=== PATIENT | female | born 1940 | race Caucasian/White ===

== ENCOUNTER 2018-05-03 11:31 | Inpatient (IN) | payer MEDICARE ==
[2018-05-03 14:08] LABS: Absolute Lymphocytes (CBC) 0.6 K/uL (0.7-4.9); Absolute Monocytes 0.6 K/uL (0.1-1.3); Absolute Neutrophil 3.3 K/uL (1.8-8.0); Basophils % 0.8 % (0-1.3); Eosinophils % 1.1 % (0-4.4); Hematocrit 23.6 % (36.0-45.0); Lymphocytes % 13.6 % (15.3-44.8); Monocytes % 13.7 % (3.3-12.3); RBC Red Blood Cell Count 2.94 M/uL (3.86-4.86)
[2018-05-03] MEDS ORDERED: PIPER/TAZO/NS 3.375gm 3.375 GM/100 ML BAG ONE (14:11)
--- NOTE | 2018-05-03 14:16 | ER ---
Nurse's Notes 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 Transition of care: patient was not received from another setting of care. Onset of symptoms was May 03, 2018. Risk Assessment: Do you want to hurt yourself or someone else? Patient reports no desire to harm self or others. Initial Sepsis Screen: Does the patient meet any 2 criteria? No. Patient's initial sepsis screen is negative. Does the patient have a suspected source of infection? No. Patient's initial sepsis screen is negative. Care prior to arrival: None. 11:59 Method Of Arrival: Ambulatory la1 11:59 Acuity: LUCIE 3 la1 Historical: - Allergies: 11:59 No Known Allergies; la1 - PMHx: 11:59 hemachromotosis; Migraines; stroke 2013; Cellulitis; Anemia; la1 - PSHx: 11:59 liver biopsy; la1 - Immunization history:: Adult Immunizations up to date. - Social history:: Smoking status: Patient/guardian denies using tobacco. - Ebola Screening: : No symptoms or risks identified at this time. Screenin:30 Abuse screen: Denies threats or abuse. Nutritional screening: No deficits noted. jl7 Tuberculosis screening: No symptoms or risk factors identified. Fall Risk IV access (20 points). Total Bond Fall Scale indicates No Risk (0-24 pts). Assessment: 12:45 General: Appears in no apparent distress. uncomfortable, Behavior is calm, cooperative, jl7 appropriate for age. Pain: Denies pain. Neuro: Level of Consciousness is awake, alert, obeys commands, Oriented to person, place, time, situation. Cardiovascular: Patient's skin is warm and dry. Respiratory: Airway is patent Respiratory effort is even, unlabored, Respiratory pattern is regular, symmetrical. GI: No signs and/or symptoms were reported involving the gastrointestinal system. : No signs and/or symptoms were reported regarding the genitourinary system. EENT: No signs and/or symptoms were reported regarding the EENT system. Derm: Skin is pink, warm \T\ dry. Decubitus located on sacrum approximately 7.6 cm to 20 cm is stage IV bed has granulation present bed has fibrin present. 13:30 Reassessment: wet to dry dressing to sacral wound. jl7 Vital Signs: 12:02 BP 128 / 77; Pulse 93; Resp 18; Temp 97.1; Pulse Ox 98% on R/A; Weight 49.9 kg; Height la1 5 ft. 4 in. (162.56 cm); 13:59 BP 139 / 71; Pulse 92; Resp 18; Temp 97.9(O); Pulse Ox 94% on R/A; mh5 14:30 BP 135 / 68; Pulse 93; Resp 16 S; Pulse Ox 98% on R/A; jl7 12:02 Body Mass Index 18.88 (49.90 kg, 162.56 cm) la1 ED Course: 11:34 Patient arrived in ED. mr 11:34 Ronnie Lawton DO is Private Physician. mr 11:59 Arm band placed on left wrist. la1 12:01 Triage completed. la1 12:30 Basil Payton MD is Attending Physician. gs 12:36 Rafita Morris RN is Primary Nurse. jl7 13:30 Patient has correct armband on for positive identification. Placed in gown. Bed in low jl7 position. Call light in reach. Side rails up X 1. Pulse ox on. NIBP on. Warm blanket given. 13:30 Initial lab(s) drawn, by ky, sent to lab. Inserted saline lock: 22 gauge in right jl7 forearm, using aseptic technique. Blood collected. 14:09 Tierney Santoro MD is Hospitalizing Provider. gs 14:30 No provider procedures requiring assistance completed. Patient admitted, IV remains in jl7 place. intact, No redness/swelling at site. Administered Medications: 13:40 Drug: Zosyn 3.375 grams Route: IVPB; Infused Over: 60 mins; Site: right forearm; jl7 14:44 Follow up: Response: No adverse reaction; IV Status: Completed infusion jl7 14:21 Not Given (Other Intervention Used): Bacitracin Ointment (500 unit/g) 1 application jl7 Topical once Outcome: 14:15 Decision to Hospitalize by Provider. madhavi 14:30 Admitted to Med/surg accompanied by tech, family with patient, via wheelchair, room jl7 217, with chart, Report called to JUNA JOSÉ Rivero 14:30 Condition: stable 14:30 Discharge instructions given to patient, family, Instructed on the need for admit, Demonstrated understanding of instructions. 14:45 Patient left the ED. jl7 Signatures: Mable Hu Lee, RN RN la1 Tatiana Kendall Jahala, RN RN jl7 Basil Payton MD MD Corrections: (The following items were deleted from the chart) 14:45 14:21 Zosyn 3.375 grams IVPB in right forearm over 60 mins jl7 jl7
--- NOTE | 2018-05-03 14:16 | EDPHYS ---
Physician Documentation [facility] Name: Laila Johnson Age: 77 yrs Sex: Female : 1940 Arrival Date: 05/03/2018 Time: 11:34 Bed 15 Private MD: Ronnie Lawton H ED Physician Basil Payton HPI: 05/03 14:29 This 77 yrs old Female presents to ER via Ambulatory with complaints of gs Abscess. 14:29 This 77 yrs old Female presents to ER via Ambulatory with complaints of Ulcer.gs 14:29 Description: The affected area is moderate sized, draining. Onset: The symptoms/episode gs began/occurred 2 week(s) ago. Associated signs and symptoms: Pertinent negatives: fever. Modifying factors: the symptoms are alleviated by nothing, the symptoms are aggravated by nothing. Severity of symptoms: At their worst the symptoms were severe, in the emergency department the symptoms are unchanged. Historical: - Allergies: 11:59 No Known Allergies; la1 - PMHx: 11:59 hemachromotosis; Migraines; stroke 2014; Cellulitis; Anemia; la1 - PSHx: 11:59 liver biopsy; la1 - Immunization history:: Adult Immunizations up to date. - Social history:: Smoking status: Patient/guardian denies using tobacco. - Ebola Screening: : No symptoms or risks identified at this time. ROS: 14:29 All other systems are negative. gs Exam: 14:29 Head/Face: Normocephalic, atraumatic. Eyes: Pupils equal round and reactive to light, gs extra-ocular motions intact. Lids and lashes normal. Conjunctiva and sclera are non-icteric and not injected. Cornea within normal limits. Periorbital areas with no swelling, redness, or edema. ENT: Nares patent. No nasal discharge, no septal abnormalities noted. Tympanic membranes are normal and external auditory canals are clear. Oropharynx with no redness, swelling, or masses, exudates, or evidence of obstruction, uvula midline. Mucous membranes moist. Neck: Trachea midline, no thyromegaly or masses palpated, and no cervical lymphadenopathy. Supple, full range of motion without nuchal rigidity, or vertebral point tenderness. No Meningismus. Chest/axilla: Normal chest wall appearance and motion. Nontender with no deformity. No lesions are appreciated. Cardiovascular: Regular rate and rhythm with a normal S1 and S2. No gallops, murmurs, or rubs. Normal PMI, no JVD. No pulse deficits. Respiratory: Lungs have equal breath sounds bilaterally, clear to auscultation and percussion. No rales, rhonchi or wheezes noted. No increased work of breathing, no retractions or nasal flaring. Abdomen/GI: Soft, non-tender, with normal bowel sounds. No distension or tympany. No guarding or rebound. No evidence of tenderness throughout. Back: No spinal tenderness. No costovertebral tenderness. Full range of motion. MS/ Extremity: Pulses equal, no cyanosis. Neurovascular intact. Full, normal range of motion. Neuro: Awake and alert, GCS 15, oriented to person, place, time, and situation. Cranial nerves II-XII grossly intact. Motor strength 5/5 in all extremities. Sensory grossly intact. Cerebellar exam normal. Normal gait. 14:29 Constitutional: The patient appears alert, awake. 14:29 Skin: large stage 4 ulcer with fibrinous exudate putrid smell.. Vital Signs: 12:02 BP 128 / 77; Pulse 93; Resp 18; Temp 97.1; Pulse Ox 98% on R/A; Weight 49.9 kg; Height la1 5 ft. 4 in. (162.56 cm); 13:59 BP 139 / 71; Pulse 92; Resp 18; Temp 97.9(O); Pulse Ox 94% on R/A; mh5 14:30 BP 135 / 68; Pulse 93; Resp 16 S; Pulse Ox 98% on R/A; jl7 12:02 Body Mass Index 18.88 (49.90 kg, 162.56 cm) la1 MDM: 12:45 Patient medically screened. gs 14:29 Differential diagnosis: abscess, ulcer gangrene. Data reviewed: vital signs, nurses gs notes, lab test result(s). Counseling: I had a detailed discussion with the patient and/or guardian regarding: the historical points, exam findings, and any diagnostic results supporting the discharge/admit diagnosis, the need for further work-up and treatment in the hospital. Physician consultation: Srinivasa Crow MD and will see patient in inpatient room, would like admission per Dr. Tierney Santoro MD. 05/03 13:03 Order name: CBC with Diff; Complete Time: 14:36 05/03 13:03 Order name: Basic Metabolic Panel; Complete Time: 14:36 05/03 13:03 Order name: Blood Culture* 05/03 14:36 Order name: Type And Screen gs Administered Medications: 13:40 Drug: Zosyn 3.375 grams Route: IVPB; Infused Over: 60 mins; Site: right forearm; jl7 14:44 Follow up: Response: No adverse reaction; IV Status: Completed infusion jl7 14:21 Not Given (Other Intervention Used): Bacitracin Ointment (500 unit/g) 1 application jl7 Topical once Disposition: 05/03/18 14:15 Hospitalization ordered by Tierney Santoro for Inpatient Admission. 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 - Bed requested for Telemetry/MedSurg (Inpatient). - Status is Inpatient Admission. jl7 - Condition is Stable. - Problem is new. - Symptoms are unchanged. UTI on Admission? No Signatures: Dispatcher [employer] EDMS Jase Graf RN RN la1 Rafita Morris RN RN jl7 Basil Payton MD MD Corrections: (The following items were deleted from the chart) 14:20 14:15 Hospitalization Ordered by Tierney Santoro MD for Inpatient Admission. 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 Bed requested for Telemetry/MedSurg (Inpatient). Status is Inpatient Admission. Condition is Stable. Problem is new. Symptoms are unchanged. UTI on Admission? No. gs 14:45 14:20 05/03/2018 14:15 Hospitalization Ordered by Tierney Santoro MD for Inpatient jl7 Admission. 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 Bed requested for Telemetry/MedSurg (Inpatient). Status is Inpatient Admission. Condition is Stable. Problem is new. Symptoms are unchanged. UTI on Admission? No. la1
[2018-05-03 14:26] LABS: Potassium 3.8 mmol/L (3.5-5.1)
[2018-05-03 15:42] VITALS: BMI 18.0
[2018-05-03] MEDS ORDERED: PNEUMOCOCCAL VACCINE 0.5 ML IMVAC ONE (16:00)
[2018-05-03] MEDS ORDERED: INFLUENZA VACCINE (for 3y+) 0.5 ML DOSE IMVAC ONE (16:00)
[2018-05-03] MEDS ORDERED: POTASSIUM CL SA 10 MEQ TAB PO ONE (16:05)
--- NOTE | 2018-05-03 16:44 | P.HP ---
Certification for Inpatient With expected LOS: >2 Midnights Practitioner: I am a practitioner with admitting privileges, knowledge of patient current condition, hospital course, and medical plan of care. Services: Services provided to patient in accordance with Admission requirements found in Title 42 Section 412.3 of the Code of Federal Regulations Patient History Date of Service: 05/03/18 Reason for admission: infected pressure ulcer History of Present Illness: Patient is 77 years old woman with past medical history of hemochromatosis, AFib , stroke, anemia presented to the emergency room with infected pressure ulcer: In the back sacral area, patient denied any fevers at home alone chest pain, palpitation, shortness of breath, change in urinary or bowel habits patient mentioned that she was not feeling well for the last few days and that she had this wound only since last Friday, Friday was consulted in the emergency room and they are aware about the patient. Allergies promethazine HCl [From Phenergan] Adverse Reaction (Severe, Verified 09/28/13 13 :29) confusion Home Medications: ALPRAZolam [Xanax] 1 mg PO DAILY PRN 05/03/18 Metoprolol Succinate [Toprol Xl*] 1 tab PO DAILY PRN 05/03/18 Morphine Sulfate [Morphine Sulfate ER] 30 mg PO Q4H PRN 05/03/18 Promethazine HCl 1 tab PO Q6H PRN 05/03/18 - Past Medical/Surgical History Has patient received pneumonia vaccine in the past: No Diabetic: No -: Stroke(2013) -: Chronic Back Pain -: TMJ(Severe) -: AFIB -: bacterial meningitis(september 2013) -: hemochromotosis -: jamil -: breast sx ( left) cyst removed -: sinus sx -: varicose vein surgery -: tubal ligation Psychosocial/ Personal History: Patient smoked 1/2ppd for 35 years. Quit 20 years ago.She lives with her husbandHas all her primary and secondary ADL'sShe denies any physical or financial abuse - Family History Mother Notes: " from surgery, when they took that thing out, got hole in esophagus " - Social History Smoking Status: Former smoker Alcohol use: No CD- Drugs: No Caffeine use: Yes Place of Residence: Home Domestic Violence: Patient denies Review of Systems 10-point ROS is otherwise unremarkable Physical Examination - Vital Signs Temperature: 97.9 F Blood Pressure: 135/68 Pulse: 93 Respirations: 16 - Physical Exam General: Alert, Oriented x3 HEENT: Atraumatic, Normocephalic, PERRLA Neck: Supple, JVD not distended Respiratory: Clear to auscultation bilaterally, Normal air movement Cardiovascular: No edema, Normal pulses, Regular rate/rhythm, Normal S1 S2 Gastrointestinal: Normal bowel sounds, Soft and benign, Non-distended Musculoskeletal: No erythema, No tenderness Integumentary: Skin breakdown (Patient has skin breakdown in the sacral area associated with redness and draining pus ) Neurological: Normal speech, Normal strength at 5/5 x4 extr - Studies Laboratory Data (last 24 hrs) 05/03/18 13:15: Sodium 131 L, Potassium 3.8, BUN 11, Creatinine 0.82, Glucose 119 H 05/03/18 13:15: WBC 4.7, Hgb 7.7 L*, Hct 23.6 L, Plt Count 283 Assessment and Plan - Plan Assessment and plan Infected pressure ulcer IV antibiotics vancomycin and Zosyn Surgery consult for debridment f/up wound cx f/up Bcx MRI tomorrow to r/o OM hyponatremia monitor CMP IVF hydration with NS anemia chronic f/up iron profile - Advance Directives Does patient have a Living Will: Yes Does patient have a Durable POA for Healthcare: No
[2018-05-03] MEDS: ENOXAPARIN 40 MG/0.4 ML SQ SCH (16:49)
[2018-05-03] MEDS: VANCOMYCIN 1 GM in NA CHLORIDE 0.9% 250 ML IVPB SCH (16:51)
[2018-05-03] MEDS: NA CHLORIDE 0.9% 1,000 ML IV SCH (18:46)
[2018-05-03] MEDS: PIPER/TAZO/NS 3.375gm 3.375 GM/100 ML BAG IVPB SCH (20:46)
[2018-05-03] MEDS: HYDROCODONE/APAP 10/325 TAB PO PRN (21:41)
[2018-05-04] MEDS: PIPER/TAZO/NS 3.375gm 3.375 GM/100 ML BAG IVPB SCH (03:25)
[2018-05-04 03:29] LABS: Urine Appearance CLEAR; Urine Bilirubin NEGATIVE (NEG); Urine Blood NEGATIVE (NEG); Urine Color YELLOW; Urine Glucose NEGATIVE (NEG); Urine Protein NEGATIVE (NEG); Urine Specific Gravity <=1.005 (1.005-1.030); Urine pH 6.5 (5.0-7.0)
[2018-05-04 03:30] LABS: Urine Microscopic Reflex ORDER UMIC
[2018-05-04 05:16] LABS: Urine Bacteria <20 /HPF (<20); Urine Culture Reflex Order REFLEXED; Urine RBC NONE SEEN /HPF (NONE SEEN)
[2018-05-04 06:18] LABS: Absolute Lymphocytes (CBC) 0.4 K/uL (0.7-4.9); Absolute Monocytes 0.5 K/uL (0.1-1.3); Absolute Neutrophil 3.9 K/uL (1.8-8.0); Basophils % 0.9 % (0-1.3); Eosinophils % 1.6 % (0-4.4); Hematocrit 28.5 % (36.0-45.0); Lymphocytes % 8.6 % (15.3-44.8); MPV 8.1 fL (7.6-11.3); Monocytes % 9.6 % (3.3-12.3); RBC Red Blood Cell Count 3.45 M/uL (3.86-4.86)
[2018-05-04 06:34] LABS: Albumin 2.7 g/dL (3.4-5.0); Bilirubin Total 0.7 mg/dL (0.2-1.0); Potassium 3.8 mmol/L (3.5-5.1); Protein, Total 6.4 g/dL (6.4-8.2)
[2018-05-04 08:52] LABS: Ferritin 31.1 ng/mL (8-388)
[2018-05-04 08:54] LABS: Thyroid Stimulating Hormone 6.27 uIU/mL (0.360-3.740)
--- NOTE | 2018-05-04 10:17 | RAD REPORT ---
EXAM DESCRIPTION: MRI - Foot Left Wo Cont - 05/04/2018 9:51 am CLINICAL HISTORY: evaluate for osteomyelitis Redness and swelling about the heel. COMPARISON: No comparisons FINDINGS: The Achilles tendon and plantar fascia appear normal in size and thickness. Heel soft tiss ues are thickened and edematous with trace fluid noted. There is no marrow replacement or abnormal T2 /IR signal seen in the calcaneus or elsewhere to indicate presence of osteomyelitis. The flexor and extensor tendons of the ankle appear intact. The medial and lateral ligament complexes of the ankle are preserved. A small ankle joint effusion is seen. No soft tissue mass or hematoma. IMPRESSION: No finding to indicate osteomyelitis.
--- NOTE | 2018-05-04 10:30 | RAD REPORT ---
EXAM DESCRIPTION: US - Lower Extremity Arterial Bilat - 05/04/2018 10:20 am CLINICAL HISTORY: evaluate for PVD Leg pain, claudication COMPARISON: Lower Extremity Arterial Bilat dated 10/22/2016 TECHNIQUE: Bilateral lower extremity arterial Doppler examination was performed with waveform tracin g and ankle brachial pressure measurements. FINDINGS: Symmetric brachial pressure measurements are noted. Triphasic waveforms are seen throughout both lower extremity arterial systems to the level of the sarah salis pedis arteries. Right ankle brachial index measures 1.3, normal. Left ankle brachial index measures 1.3, normal. IMPRESSION: No evidence of significant peripheral vascular disease.
[2018-05-04] MEDS: HYDROCODONE/APAP 10/325 TAB PO PRN ×2 (11:09→21:16)
[2018-05-04] MEDS ORDERED: METOPROLOL XL 25 MG TAB PO PRN (14:37)
--- NOTE | 2018-05-04 14:38 | P.PN ---
Subjective Date of Service: 05/04/18 Primary Care Provider: Dr. Lawton Chief Complaint: infected pressure ulcer Subjective: Improving (No significant erythema noted to the left heel. Ulcer noted.) Physical Examination - Vital Signs Temperature: 98.8 F Blood Pressure: 146/78 Pulse: 104 Respirations: 20 Pulse Ox (%): 94 - Physical Exam General: Alert, In no apparent distress, Oriented x3, Cooperative HEENT: Atraumatic Neck: Supple Respiratory: Clear to auscultation bilaterally, Normal air movement Cardiovascular: Normal pulses, Regular rate/rhythm Gastrointestinal: Normal bowel sounds, Soft and benign, Non-distended, No ascites, No tenderness, No masses, No rebound, No guarding Integumentary: Other (Pressure ulcer to the left heel, Stage 1) Neurological: Normal speech, Normal strength at 5/5 x4 extr, Normal tone, Normal affect - Studies Medications List Reviewed: Yes Assessment & Plan Discharge Plan: Home Plan to discharge in: 48 Hours Physician Review Additional Text: Impression: Stage I ulcer to the left heel with cellulitis History of hemochromatosis Anemia, iron deficiency Hypertension Anxiety Plan: Stage I ulcer to the left heel with cellulitis: Continue with antibiotic therapy. MRI shows no osteomyelitis. Cabrera Doppler negative for peripheral vascular disease. Await further recommendations from surgery to evaluate wound. Continue antibiotic therapy. Antibiotic therapy adjusted. Will provide medication for pain. Anticipate discharge in the next 24-48 hr is significant improvement. Ambulate with physical therapy. Patient may require home health and physical therapy discharge. History of hemochromatosis: Will need to obtain more information from history. Patient may need to see Hematology as an outpatient. Anemia, iron deficiency: Will monitor closely. Hypertension: Continue with home medication. Anxiety: Will provide medication as needed. Time Spent Managing Pts Care (In Minutes): 55
[2018-05-04] MEDS ORDERED: MORPHINE 2 MG/ML SYR IV ONE (17:00)
[2018-05-04] MEDS: VANCOMYCIN 1 GM in NA CHLORIDE 0.9% 250 ML IVPB SCH (17:25)
[2018-05-04] MEDS: ENOXAPARIN 40 MG/0.4 ML SQ SCH (17:27)
[2018-05-04] MEDS: NA CHLORIDE 0.9% 1,000 ML IV SCH ×2 (17:38→21:17)
[2018-05-04] MEDS ORDERED: POTASSIUM CL SA 10 MEQ TAB PO ONE (21:00)
[2018-05-04] MEDS: CEFEPIME/SWI 2gm 2 GM/20 ML SYR IV SCH (21:03)
[2018-05-04] MEDS: ENSURE ENLIVE 237 ML CAN PO SCH (21:08)
[2018-05-04] MEDS: JUVEN PACKET PO SCH (21:09)
[2018-05-04] MEDS: ALPRAZOLAM 0.25 MG TABLET PO PRN (23:28)
[2018-05-05] MEDS: HYDROCODONE/APAP 10/325 TAB PO PRN ×3 (04:00→17:17)
[2018-05-05 06:14] LABS: Absolute Lymphocytes (CBC) 0.5 K/uL (0.7-4.9); Absolute Monocytes 0.5 K/uL (0.1-1.3); Absolute Neutrophil 2.4 K/uL (1.8-8.0); Basophils % 1.1 % (0-1.3); Eosinophils % 3.4 % (0-4.4); Hematocrit 26.1 % (36.0-45.0); Lymphocytes % 14.7 % (15.3-44.8); MPV 8.5 fL (7.6-11.3); Monocytes % 14.9 % (3.3-12.3); RBC Red Blood Cell Count 3.18 M/uL (3.86-4.86)
[2018-05-05 06:24] LABS: Magnesium 1.8 mg/dL (1.8-2.4); Potassium 4.4 mmol/L (3.5-5.1)
[2018-05-05] MEDS ORDERED: MAGNESIUM SULFATE 1 gm IVPB 1 GM/100 ML BAG IV ONE (06:42)
[2018-05-05] MEDS ORDERED: IPRATROPIUM BROM 0.5MG/2.5ML NEB PRN (08:12)
[2018-05-05] MEDS ORDERED: ALBUTEROL 2.5 MG/3 ML NEB SOL NEB PRN (08:12)
--- NOTE | 2018-05-05 09:19 | RAD REPORT ---
EXAM DESCRIPTION: RAD - Chest Pa And Lat (2 Views) - 05/05/2018 9:07 am CLINICAL HISTORY: SOB with exertion Chest pain. COMPARISON: Chest Single View dated 10/21/2016; Chest Single View dated 09/13/2015; CHEST SINGLE VIEW d ated 12/23/2013; CHEST SINGLE VIEW dated 12/22/2013 FINDINGS: The lungs are mildly emphysematous with small bilateral pleural effusions noted. Linear an d nodular opacities are present in the left lung base which raise suspicion for superimposed pneumoni a or aspiration. The heart is mildly enlarged in size. IMPRESSION: Small bilateral pleural effusions are noted with ill-defined linear and nodular opacitie s in the left lung base which could indicate pneumonia or aspiration.
[2018-05-05] MEDS: COLLAGENASE 30 GM OINTMENT TOP SCH (09:59)
[2018-05-05] MEDS: JUVEN PACKET PO SCH ×2 (09:59→21:53)
[2018-05-05] MEDS: ENSURE ENLIVE 237 ML CAN PO SCH ×2 (09:59→21:53)
[2018-05-05] MEDS ORDERED: FUROSEMIDE 20 MG/ 2ML VIAL IV ONE (11:10)
--- NOTE | 2018-05-05 11:57 | P.PN ---
Subjective Date of Service: 05/05/18 Primary Care Provider: Dr. Lawton Chief Complaint: infected pressure ulcer Subjective: Improving (Patient reports improvement. Still some mild shortness of breath noted. Oxygen saturations within normal range. Shortness of breath mainly with exertion.) Physical Examination - Vital Signs Temperature: 97.7 F Blood Pressure: 146/77 Pulse: 97 Respirations: 16 Pulse Ox (%): 88 - Physical Exam General: Alert, In no apparent distress, Oriented x3, Cooperative HEENT: Atraumatic Neck: Supple Respiratory: Crackles/rales (To the bases), Expiratory wheezes, Inspiratory wheezes Cardiovascular: Normal pulses, Regular rate/rhythm Gastrointestinal: Normal bowel sounds, Soft and benign, Non-distended, No tenderness, No masses, No rebound, No guarding Musculoskeletal: No erythema, No tenderness, No warmth Integumentary: No erythema, No warmth, No cyanosis, Other (Ulcer to the left heel stable. No significant erythema noted. Nurses report sacral decubitus ulcer as well.) Neurological: Normal speech, Normal strength at 5/5 x4 extr, Normal tone, Normal affect - Studies Medications List Reviewed: Yes Assessment & Plan Discharge Plan: Home Plan to discharge in: 24 Hours Physician Review Additional Text: Impression: Stage I ulcer to the left heel with cellulitis along with sacral decubitus ulcer Shortness of breath likely underlying COPD versus CHF History of hemochromatosis Anemia, iron deficiency Hypertension Anxiety Plan: Stage I ulcer to the left heel with cellulitis along with sacral decubitus ulcer : MRI shows no osteomyelitis. Venous Doppler shows no peripheral vascular disease. This has improved. Await wound care evaluation with recommendations. Will transition to oral Augmentin. Continue with physical therapy. Will discuss with surgery who evaluated patient yesterday. Shortness of breath likely underlying COPD versus CHF: X-ray shows pleural effusions. Room-air saturations within normal range. Patient still short of breath with exertion. Will monitor this closely. Will provide Lasix IV x1. Will obtain echocardiogram to further evaluate for possible underlying CHF. Will also order CT scan PE protocol to further evaluate her condition. Patient on DVT prophylaxis. Will maintain sats above 90%. Will continue to reassess. History of hemochromatosis: Will need to obtain more information from history. Patient may need to see Hematology as an outpatient. Anemia, iron deficiency: Will monitor closely. Hypertension: Continue with home medication. Anxiety: Will provide medication as needed. Time Spent Managing Pts Care (In Minutes): 55
[2018-05-05] MEDS: TRAMADOL HCL 50 MG TAB PO PRN ×2 (12:28→23:13)
--- NOTE | 2018-05-05 14:23 | P.CNS ---
Date of Consult: 05/05/18 PC: I had been asked to see this 77-year-old female in regards to a wound on her sacrum. HPC: Patient is been home, has not been feeling well. Had more less been in bed for the full week. Noticed she had a sore on the sacral area that measures about 2.5 cm. She states that the skin broke down and opened and drained prior to coming to the hospital. PMH: COPD, previous stroke, hypertension PSHx: Previous cholecystectomy, breast surgery, varicose vein surgery SOC: No known allergy SYS REVIEW: States she has otherwise been in good health, how every once in a while her lungs give out on her. O/E awake alert vital signs are stable HEENT: Within normal and Chest: Equal bilaterally ABD: Soft LOCO: Has an area on her coccyx just at the top of the cleft that measures about 2.5 cm. It is opening with some necrotic material. IMPRESSION: Sacral decubitus PLAN: This wound to be treated as an outpatient. We recommend some santal for now for collagenase, and she may be [facility]. Thank you a console.
--- NOTE | 2018-05-05 15:17 | RAD REPORT ---
EXAM DESCRIPTION: CT - Chest For Pe Angio - 05/05/2018 1:07 pm CLINICAL HISTORY: sob COMPARISON: May 05, 2018 TECHNIQUE: Dynamically enhanced axial 3 mm thick images of the chest were obtained during administra tion of <100> mL Isovue 370 IV contrast. Coronal and oblique reconstruction images were generated and reviewed. Exam utilizes a protocol for optimal evaluation of pulmonary arterial tree. Maximum intensity projections 3D imaging was utilized All CT scans are performed using dose optimization technique as appropriate and may include automated exposure control or mA/KV adjustment according to patient size. FINDINGS: A pulmonary embolus is not seen. A thoracic aortic aneurysm is not noted. Small bilateral pleural effusions. . A pericardial effusion is not seen. Mild bibasilar atelectasis IMPRESSION: Negative for a pulmonary embolism. Small bilateral pleural effusions with bibasilar atelectasis
[2018-05-05] MEDS: ENOXAPARIN 40 MG/0.4 ML SQ SCH (16:25)
[2018-05-05] MEDS: VANCOMYCIN 1 GM in NA CHLORIDE 0.9% 250 ML IVPB SCH (16:30)
[2018-05-05] MEDS: ARFORMOTEROL TARTRATE 15 MCG/2 ML VIAL.NEB NEB SCH (20:00)
[2018-05-05] MEDS: CEFEPIME/SWI 2gm 2 GM/20 ML SYR IV SCH (21:53)
[2018-05-05] MEDS: ALPRAZOLAM 0.25 MG TABLET PO PRN (23:13)
[2018-05-06] MEDS: HYDROCODONE/APAP 10/325 TAB PO PRN (04:44)
[2018-05-06 06:06] LABS: Absolute Lymphocytes (CBC) 0.8 K/uL (0.7-4.9); Absolute Monocytes 0.6 K/uL (0.1-1.3); Absolute Neutrophil 3.1 K/uL (1.8-8.0); Basophils % 0.6 % (0-1.3); Eosinophils % 2.5 % (0-4.4); Hematocrit 25.4 % (36.0-45.0); Lymphocytes % 16.9 % (15.3-44.8); MPV 8.6 fL (7.6-11.3); Monocytes % 12.8 % (3.3-12.3); RBC Red Blood Cell Count 3.16 M/uL (3.86-4.86)
[2018-05-06 06:16] LABS: Phosphorus 1.9 mg/dL (2.5-4.9); Potassium 4.5 mmol/L (3.5-5.1)
[2018-05-06] MEDS ORDERED: POTASS/SODIUM PHOSPHATE 1 PKT POWD.PACK PO SCH ×2 (07:00→12:00)
[2018-05-06] MEDS: POTASS/SODIUM PHOSPHATE 1 PKT POWD.PACK PO SCH ×4 (07:24→12:25)
--- NOTE | 2018-05-06 08:06 | ECHO ---
HEIGHT: 5 ft 4 in WEIGHT: 105 lb 3.2 oz DATE OF STUDY: 05/05/[address]: Brijesh Garland DO 2-DIMENSIONAL: YES M.MODE: YES DOPPLER: YES COLOR FLOW: YES TDS: NO PORTABLE: NO DEFINITY: NO BUBBLE STUDY: NO DIAGNOSIS: EVALUATE FOR CONGESTIVE HEART FAILURE CARDIAC HISTORY: CATHERIZATION: NO SURGERY: NO PROSTHETIC VALVE: NO PACEMAKER: NO MEASUREMENTS (cm) DIASTOLIC (NORMALS) SYSTOLIC (NORMALS) IVSd 0.8 (0.6-1.2) LA Diam 3.8 (1.9-4.0) LVEF 64% LVIDd 3.7 (3.5-5.7) LVIDs 2.4 (2.0-3.5) %FS 34% LVPWd 0.9 (0.6-1.2) Ao Diam 2.7 (2.0-3.7) 2 DIMENSIONAL ASSESSMENT: RIGHT ATRIUM: NORMAL LEFT ATRIUM: NORMAL RIGHT VENTRICLE: NORMAL LEFT VENTRICLE: NORMAL TRICUSPID VALVE: NORMAL MITRAL VALVE: NORMAL PULMONIC VALVE: NORMAL AORTIC VALVE: NORMAL PERICARDIAL EFFUSION: NONE AORTIC ROOT: NORMAL LEFT VENTRICULAR WALL MOTION: DECREASED LEFT VENTRICULAR COMPLIANCE. DOPPLER/COLOR FLOW: MILD MITRAL AND TRICUPSID REGURGITATION. NORMAL RIGHT VENTRICULAR SYSTOLIC PRESSURE. COMMENTS: MILD MITRAL AND TRICUPSID REGURGITATION. NORMAL RIGHT VENTRICULAR SYSTOLIC PRESSURE. NORMAL LEFT VENTRICULAR SIZE AND FUNCTION. DECREASED LEFT VENTRICULAR COMPLIANCE. TECHNOLOGIST: Corbin AGUIRRE
[2018-05-06] MEDS: JUVEN PACKET PO SCH ×2 (08:58→20:51)
[2018-05-06] MEDS: COLLAGENASE 30 GM OINTMENT TOP SCH (08:59)
[2018-05-06] MEDS: ENSURE ENLIVE 237 ML CAN PO SCH ×2 (08:59→20:51)
[2018-05-06] MEDS: ALPRAZOLAM 0.25 MG TABLET PO PRN (09:04)
[2018-05-06] MEDS ORDERED: ALPRAZOLAM 0.25 MG TABLET PO ONE (09:35)
[2018-05-06] MEDS: ARFORMOTEROL TARTRATE 15 MCG/2 ML VIAL.NEB NEB SCH ×2 (10:00→20:02)
--- NOTE | 2018-05-06 10:23 | RAD REPORT ---
EXAM DESCRIPTION: MRI - Sacrum/Coccyx Wo Cont - 05/06/2018 9:52 am CLINICAL HISTORY: evaluate for osteomyelitis Infection, decubitus ulcer COMPARISON: No comparisons FINDINGS: Ill-defined soft tissue ulceration is seen along the posterior aspect of the coccyx and in ferior sacrum. No drainable fluid collection is seen. Abnormal diminished T1 and elevated T2/IR signal is seen in the first and second coccygeal segments c ompatible with moderate osteomyelitis No additional areas of abnormal marrow pattern observed. Presacral space shows no abnormal collection s. IMPRESSION: [id number] coccygeal osteomyelitis. No abscess is seen.
--- NOTE | 2018-05-06 10:39 | RAD REPORT ---
EXAM DESCRIPTION: RAD - Chest Pa And Lat (2 Views) - 05/06/2018 10:33 am CLINICAL HISTORY: Follow up COPD/CHF Chest pain. COMPARISON: Chest Pa And Lat (2 Views) dated 05/05/2018; Chest Single View dated 10/21/2016; Chest Sing le View dated 09/13/2015; CHEST SINGLE VIEW dated 12/23/2013 FINDINGS: Small bilateral pleural effusions are noted. The lungs are diffusely emphysematous. Poorly defined nodularity in both lower lung carrasco may represent nipple shadows. The heart is moderately e nlarged in size. No displaced fractures. IMPRESSION: COPD with small pleural effusions bilaterally, unchanged.
[2018-05-06] MEDS: TRAMADOL HCL 50 MG TAB PO PRN ×2 (11:44→22:18)
--- NOTE | 2018-05-06 13:06 | P.PN ---
Subjective Date of Service: 05/06/18 Primary Care Provider: Dr. Lawton Chief Complaint: infected pressure ulcer Subjective: Other (Pain stable.) Physical Examination - Vital Signs Temperature: 97.7 F Blood Pressure: 114/64 Pulse: 114 Respirations: 20 Pulse Ox (%): 100 - Physical Exam General: Alert, In no apparent distress, Cooperative HEENT: Atraumatic Neck: Supple Respiratory: Expiratory wheezes (Bilateral) Cardiovascular: Irregular heart rate/rhythm (AFib, rate controlled) Gastrointestinal: Normal bowel sounds, Soft and benign, Non-distended, No masses , No rebound, No guarding Musculoskeletal: No warmth Integumentary: Other (Case discussed with wound care yesterday concerning unstageable coccyx ulcer) Neurological: Normal speech, Normal strength at 5/5 x4 extr, Normal tone, Normal affect - Studies Medications List Reviewed: Yes Assessment & Plan Discharge Plan: LTAC Plan to discharge in: 24 Hours Physician Review Additional Text: Impression: Unstageable coccyx ulcer with osteomyelitis Shortness of breath secondary to COPD with bilateral pleural effusions complicated with new diagnosis of atrial fibrillation History of hemochromatosis Anemia, iron deficiency Hypertension Anxiety Plan: Unstageable coccyx ulcer with osteomyelitis : MRI shows osteomyelitis of the coccyx. Continue IV antibiotic therapy. Case discussed with infectious disease. Will pursue long-term acute care facility placement for continued IV antibiotic therapy and wound care. Patient currently on vancomycin and cefepime. PICC line ordered for long-term IV antibiotic therapy Shortness of breath secondary to COPD with bilateral pleural effusions complicated with new diagnosis of atrial fibrillation: CT scan shows no pulmonary embolism. X-ray still shows COPD and pleural effusion. Will continue with COPD medication. Will maintain sats above 90%. Telemetry shows atrial fibrillation. Will adjust anti coagulation therapy to Lovenox at 1 milligram/kilogram subcu twice daily. Will make sure patient continues with Toprol XL daily. Will consult cardiology for further recommendation. Patient may require long-term anti coagulation therapy but with her anemia this will need to be monitored closely. History of hemochromatosis: Will need to obtain more information from history. Patient may need to see Hematology as an outpatient. Anemia, iron deficiency: Will monitor closely. Hypertension: Need to make sure patient is getting her Toprol daily. Anxiety: Will provide medication as needed. Time Spent Managing Pts Care (In Minutes): 55
--- NOTE | 2018-05-06 13:24 | EKG ---
Test Date: 2018-05-06 Test Time: 13:11:33 Trust Clerk: KRISTIE MEASUREMENT RESULTS: Intervals: Rate: 78 GA: QRSD: 122 QT: 448 QTc: 510 [place]: P: GA: QRS: 93 T: 71 INTERPRETIVE STATEMENTS: Atrial fibrillation Right bundle branch block Abnormal ECG Compared to ECG 10/21/2016 14:04:31 Right bundle-branch block now present Ventricular premature complex(es) no longer present ST (T wave) deviation no longer present Electronically Signed On 05-06-18 13:23:35 MELTER CASTER by Shaun Gallagher
--- NOTE | 2018-05-06 15:26 | CON ---
History Of Present Illness: This is a 77-year-old female, I was consulted for sacral and coccyx stag e 4 infected wound with possible osteomyelitis. MRI is pending. The patient also has bilateral stag e 3 wounds. Denies any headache, nausea, vomiting, chest pain, abdominal pain, constipation, or diar kehinde. Past Medical History: Includes stroke, atrial fibrillation, chronic back pain. The patient sits or lays down most of the time. Bacterial meningitis, hemochromatosis, hypercholesterolemia, breast surg zuhair with cyst removal, sinus surgery, varicose vein surgery. Social History: Tobacco positive. Alcohol negative. Family History: Noncontributory. Medication: The patient is currently on cefepime and vancomycin. See MARs for other medication. Allergies: NO KNOWN DRUG ALLERGIES. Review of Systems: A 10-point review was performed. Physical Examination: General: This is a 77-year-old female, lying in bed, not in any acute cardiopulmonary distress. Vital Signs: Temperature 97.7, pulse 114, respirations 18, blood pressure 114/64. HEENT: Unremarkable. Neck: Supple. Lungs: Basal crackles. Heart: S1, S2. Regular. Abdomen: Soft, nontender. Bowel sounds present. Extremity: No edema or muscle wasting noted. Laboratory Data: Shows WBC 4.7, hemoglobin 8.2, platelets 264. Chemistry shows sodium 131, potassiu m 4.5, chloride 97, bicarb 27, BUN 22, creatinine 0.8, glucose is 100. Microdata, blood cultures are negative for 24 hours. The wound cultures are pending. MRI of sacrococcyx region shows mild-to-mod erate coccygeal osteomyelitis. No abscess noted. Assessment And Plan: Coccyx stage 4 wound with osteomyelitis, size 3 x 4 x 1.5 with undermining at 1 2 o'clock of about 6 cm. Right heel stage 3 wound, 2.5 x 0.7. Left heel stage 3 wound, 6 x 3. Prot ein calorie malnourishment. We will recommend long-term acute care with IV antibiotic and aggressive wound care at this time on this patient for total of 6 weeks. Recommend to change cefepime to Zosyn . We will follow the patient as needed. NF/MODL Voice ID: [id number] Report ID: [id number]
--- NOTE | 2018-05-06 15:26 | CON ---
History Of Present Illness: Ms. Johnson has been in atrial fibrillation for several years. She was pl aced in the hospital because of a decubitus ulcer. It is infected and some of our studies indicate t hat there is osteomyelitis of the bones there. It is a sacral decubitus. She is being considered fo r transfer to long-term acute care. Her EKGs dating back more than 4 or 5 years all indicate atrial fib. The patient is aware she has been in AFib all the time. She did not have an EKG on admission. She had one today and I was consulted because it showed AFib. She is not on chronic anticoagulation because she has a history of GI bleeding. She has had multiple blood transfusions. She is bed-boun d, very much at risk for falls during transfers. She does not support her weight and for that reason , she is not anticoagulated. She does have a history of stroke in the remote past. Physical Examination: Vital Signs: She is 5 feet 4 inches tall, 105 pounds. Heart rate is 114, temperature 97.7, blood pr essure 114/64, and O2 saturation 100% on room air. General: She is alert. She is pleasant, cooperative. She is not in distress. Lungs: Clear. Heart: Irregularly irregular. Diagnostic Data: The EKG shows atrial fib, rapid ventricular response. Medications: The patient's outpatient medications had included beta-blockers, but they were inadvert ently withheld. I think we just need to restart the beta-amilcar and she will be fine. RAYMON/SUSAN Voice ID: [id number] Report ID: [id number]
[2018-05-06] MEDS: VANCOMYCIN 1 GM in NA CHLORIDE 0.9% 250 ML IVPB SCH ×2 (16:00→16:23)
[2018-05-06] MEDS: CEFEPIME/SWI 2gm 2 GM/20 ML SYR IV SCH (20:50)
[2018-05-06] MEDS: ENOXAPARIN 60 MG/0.6 ML SQ SCH (20:50)
[2018-05-07] MEDS: HYDROCODONE/APAP 10/325 TAB PO PRN ×4 (04:08→23:41)
[2018-05-07 06:15] LABS: Magnesium 2.1 mg/dL (1.8-2.4); Phosphorus 2.1 mg/dL (2.5-4.9); Potassium 4.7 mmol/L (3.5-5.1)
[2018-05-07 06:28] LABS: Absolute Monocytes 0.6 K/uL (0.1-1.3); Absolute Neutrophil 3.3 K/uL (1.8-8.0); Basophils % 0.9 % (0-1.3); Eosinophils % 2.7 % (0-4.4); Hematocrit 25.9 % (36.0-45.0); Lymphocytes % 20.5 % (15.3-44.8); MPV 8.7 fL (7.6-11.3); Monocytes % 11.7 % (3.3-12.3); RBC Red Blood Cell Count 3.23 M/uL (3.86-4.86)
[2018-05-07] MEDS: POTASS/SODIUM PHOSPHATE 1 PKT POWD.PACK PO SCH ×3 (06:49→15:31)
[2018-05-07] MEDS: ARFORMOTEROL TARTRATE 15 MCG/2 ML VIAL.NEB NEB SCH ×2 (08:54→20:00)
[2018-05-07] MEDS: COLLAGENASE 30 GM OINTMENT TOP SCH (09:00)
[2018-05-07] MEDS: JUVEN PACKET PO SCH ×2 (09:00→20:27)
[2018-05-07] MEDS: ENSURE ENLIVE 237 ML CAN PO SCH ×2 (09:00→20:27)
[2018-05-07] MEDS: ENOXAPARIN 60 MG/0.6 ML SQ SCH ×2 (10:03→20:27)
[2018-05-07] MEDS: METOPROLOL XL 25 MG TAB PO SCH (10:03)
--- NOTE | 2018-05-07 12:38 | P.PN ---
Subjective Date of Service: 05/07/18 Primary Care Provider: Dr. Lawton Chief Complaint: infected pressure ulcer Subjective: Improving Physical Examination - Vital Signs Temperature: 98.0 F Blood Pressure: 134/62 Pulse: 73 Respirations: 16 Pulse Ox (%): 95 - Physical Exam General: Alert, In no apparent distress, Oriented x3, Cooperative HEENT: Atraumatic Neck: Supple Respiratory: Clear to auscultation bilaterally, Normal air movement Cardiovascular: Irregular heart rate/rhythm (Atrial fibrillation, rate controlled) Gastrointestinal: Normal bowel sounds, Soft and benign, Non-distended, No tenderness, No masses, No rebound, No guarding Integumentary: Other (Wound care continues) Neurological: Normal speech, Normal strength at 5/5 x4 extr, Normal tone - Studies Medications List Reviewed: Yes Assessment & Plan Discharge Plan: LTAC Plan to discharge in: 24 Hours Physician Review Additional Text: Impression: Unstageable coccyx ulcer with osteomyelitis Shortness of breath secondary to COPD with bilateral pleural effusions Chronic atrial fibrillation not on chronic anti coagulation therapy History of hemochromatosis Anemia, iron deficiency Hypertension Anxiety Moderate malnutrition Plan: Unstageable coccyx ulcer with osteomyelitis : MRI shows osteomyelitis of the coccyx. Continue IV antibiotic therapy. Case discussed with infectious disease. Infectious disease recommends long-term acute care facility placement for continued IV antibiotic therapy for up to 6 weeks along with aggressive wound care. Patient would do better in a long-term acute care facility rather than skilled facility. Await approval by insurance. PICC line ordered for long- term IV antibiotic therapy. Will consult dietary to address nutritional status. Shortness of breath secondary to COPD with bilateral pleural effusions: CT scan shows no pulmonary embolism. X-ray still shows COPD and pleural effusion. Will continue with COPD medication. Will maintain sats above 90%. Patient will need medication for COPD at discharge. Chronic atrial fibrillation not on chronic anti coagulation therapy: Patient seen and evaluated by Cardiology. Patient with history of atrial fibrillation. Toprol restarted. Will provide anti coagulation therapy at this time while in the hospital. Patient not a candidate for chronic anti coagulation therapy as an outpatient as patient previously on Xarelto but stopped due to GI bleed. History of hemochromatosis: Will need to obtain more information from history. Patient may need to see Hematology as an outpatient. Anemia, iron deficiency: Will monitor closely. Hypertension: Will continue with her medication Anxiety: Will provide medication as needed. Moderate malnutrition: Will consult dietary to further evaluate and treat. Time Spent Managing Pts Care (In Minutes): 55
--- NOTE | 2018-05-07 13:44 | RAD REPORT ---
EXAM DESCRIPTION: Chest Single View CLINICAL HISTORY: 77 years Female, PICC Placement COMPARISON: 05/06/2018 at 10:26 FINDINGS: There is mild cardiomegaly, stable. There is atherosclerosis of the thoracic aorta. A right-sided PICC line has been placed with distal tip in the superior vena cava. The lung carrasco are clear of active infiltrates. There is underlying COPD. The pulmonary vascularity is unremarkable. There are very small pleural effusions which are stable. IMPRESSION: 1. Successful placement of right-sided PICC line. 2. COPD 3. Cardiomegaly. 4. Small pleural effusions, stable. Electronically signed by Weston Goetz MD 05/06/2018 10:12 PM CURRICULUM AND INSTRUCTION SPECIALIST Due to temporary technical issues with the PACS/Fluency reporting system, reports are being signed by the in house radiologist as a courtesy to ensure prompt reporting. The interpreting radiologist is f ully responsible for the content of the report.
--- NOTE | 2018-05-07 14:41 | PN ---
Date of Progress Note: 05/07/2018 Ms. Johnson was seen yesterday for atrial fibrillation. She is back on beta-amilcar by Dr. Gallagher. Bijal villegas is not tolerant to anticoagulant secondary to history of GI bleed. There is still a possible LTAC transfer for osteomyelitis of the coccyx treatment. She is clear. An echocardiogram that was done y esterday showed a normal ejection fraction with decreased left ventricular compliance. She is in atr ial fibrillation with a controlled rate. We will sign off her case. ASHLEY/SUSAN Voice ID: [id number] Report ID: [id number]
[2018-05-07] MEDS ORDERED: ALBUTEROL 2.5 MG/3 ML NEB SOL NEB PRN (15:00)
[2018-05-07] MEDS ORDERED: IPRATROPIUM BROM 0.5MG/2.5ML NEB PRN (15:00)
--- NOTE | 2018-05-07 15:24 | PN ---
Subjective: The patient is lying in bed, just had physical therapy done. Denies any headache, nause a, vomiting, chest pain, abdominal pain, constipation, or diarrhea. Objective: Vital Signs: Temperature 98, pulse 73, respirations 16, blood pressure 134/62. Lungs: Basal crackles. Heart: S1, S2. Regular. Abdomen: Soft, nontender. Bowel sounds are present. Extremities: No edema. Muscle wasting noted. Coccygeal wound noted and heel wounds noted. Laboratory Data: WBC 5.1, hemoglobin 8.5, platelets are 272. Chemistry shows sodium 133, potassium 4.7, chloride 97, bicarb 31, BUN 28, creatinine 0.83, glucose is 102. Blood cultures are negative. Wound cultures are still pending. Currently the patient is on antibiotics, cefepime and vancomycin. Assessment And Plan: Coccygeal stage 4 wound, bilateral heel stage 3 wounds. Continue antibiotic an d Wound Care will follow the patient as needed. ABBEY/SUSAN Voice ID: [id number] Report ID: [id number]
[2018-05-07] MEDS: VANCOMYCIN 1 GM in NA CHLORIDE 0.9% 250 ML IVPB SCH (18:07)
[2018-05-07] MEDS: CEFEPIME/SWI 2gm 2 GM/20 ML SYR IV SCH (20:27)
[2018-05-08 05:23] LABS: Phosphorus 1.9 mg/dL (2.5-4.9); Potassium 4.6 mmol/L (3.5-5.1)
[2018-05-08] MEDS ORDERED: FUROSEMIDE 20 MG/ 2ML VIAL IV ONE (07:59)
[2018-05-08] MEDS: ARFORMOTEROL TARTRATE 15 MCG/2 ML VIAL.NEB NEB SCH (08:30)
[2018-05-08] MEDS: HYDROCODONE/APAP 10/325 TAB PO PRN ×2 (08:47→14:23)
[2018-05-08] MEDS: METOPROLOL XL 25 MG TAB PO SCH (08:47)
[2018-05-08] MEDS: ENOXAPARIN 60 MG/0.6 ML SQ SCH (08:47)
[2018-05-08] MEDS: JUVEN PACKET PO SCH (08:47)
[2018-05-08] MEDS: COLLAGENASE 30 GM OINTMENT TOP SCH (08:47)
[2018-05-08] MEDS: ENSURE ENLIVE 237 ML CAN PO SCH (08:47)
[2018-05-08] MEDS ORDERED: POTASSIUM PHOS IN 0.9 % NACL 15 MMOL/250 ML BAG IV ONE (09:00)
--- NOTE | 2018-05-08 10:07 | RAD REPORT ---
EXAM DESCRIPTION: Ray Single View05/08/2018 9:44 am CLINICAL HISTORY: Shortness of breath COMPARISON: May 06 FINDINGS: Small bilateral pleural effusions may have mildly increased in size. Bibasilar atelectasis The heart remains enlarged PICC line in place
--- NOTE | 2018-05-08 11:21 | P.DS ---
Admission Date: 05/03/18 Discharge Date: 05/08/18 Primary Care Provider: Dr. Lawton Disposition: [facility] Discharge Condition: GOOD Reason for Admission: infected pressure ulcer Consultations: Cardiology-Dr. Gallagher Surgery-Dr. Weldon Infectious disease-Dr. House Procedures: MRI: COMPARISON: No comparisons FINDINGS: Ill-defined soft tissue ulceration is seen along the posterior aspect of the coccyx and inferior sacrum. No drainable fluid collection is seen. Abnormal diminished T1 and elevated T2/IR signal is seen in the first and second coccygeal segments compatible with moderate osteomyelitis No additional areas of abnormal marrow pattern observed. Presacral space shows no abnormal collections. IMPRESSION: [id number] coccygeal osteomyelitis. No abscess is seen. CT scan: COMPARISON: May 05, 2018 TECHNIQUE: Dynamically enhanced axial 3 mm thick images of the chest were obtained during administration of <100> mL Isovue 370 IV contrast. Coronal and oblique reconstruction images were generated and reviewed. Exam utilizes a protocol for optimal evaluation of pulmonary arterial tree. Maximum intensity projections 3D imaging was utilized All CT scans are performed using dose optimization technique as appropriate and may include automated exposure control or mA/KV adjustment according to patient size. FINDINGS: A pulmonary embolus is not seen. A thoracic aortic aneurysm is not noted. Small bilateral pleural effusions. . A pericardial effusion is not seen. Mild bibasilar atelectasis IMPRESSION: Negative for a pulmonary embolism. Small bilateral pleural effusions with bibasilar atelectasis ECHO: EF 64% LEFT VENTRICULAR WALL MOTION: DECREASED LEFT VENTRICULAR COMPLIANCE. DOPPLER/COLOR FLOW: MILD MITRAL AND TRICUPSID REGURGITATION. NORMAL RIGHT VENTRICULAR SYSTOLIC PRESSURE. COMMENTS: MILD MITRAL AND TRICUPSID REGURGITATION. NORMAL RIGHT VENTRICULAR SYSTOLIC PRESSURE. NORMAL LEFT VENTRICULAR SIZE AND FUNCTION. DECREASED LEFT VENTRICULAR COMPLIANCE. Medical Problem List: Unstageable coccyx ulcer with osteomyelitis Shortness of breath secondary to COPD with bilateral pleural effusions Chronic atrial fibrillation not on chronic anti coagulation therapy Suspect chronic diastolic dysfunction History of hemochromatosis Anemia, iron deficiency Hypertension Anxiety Moderate malnutrition Brief History of Present Illness: 77-year-old female presented urgency room with increasing fatigue and shortness of breath. Patient evaluated and found to have multiple ulcers to her body including the sacrum and heel. Patient was admitted for further evaluation. Hospital Course: Patient admitted and evaluated for multiple pressure ulcers. Patient found to have unstageable coccyx ulcer positive for osteomyelitis. Patient started on IV antibiotic therapy. Wound culture pending. Infectious Disease was consulted. Infectious Disease recommends IV antibiotic therapy up to 6 weeks or more with aggressive wound care. Infectious Disease also recommended long- term acute care facility placement to continue care. Patient with patient will go to long-term acute care facility to continue her care. Plastic surgery intervention to the coccyx. Patient currently on IV cefepime and vancomycin. Medications will need to be monitored and adjusted appropriately. Patient also presented with shortness of breath. CT scan revealed COPD changes with bilateral pleural effusion. CT scan showed no pulmonary embolism. Patient with history of tobacco abuse in the past. Patient will continue with COPD medication-Brovana 1 unit dose twice daily and albuterol 2 puffs 3 times a day as needed for shortness of breath. Recommend to monitor bilateral pleural effusions. Patient with chronic atrial fibrillation not on chronic anti coagulation therapy due to GI bleed in the past. Patient was evaluated by cardiology. Cardiology recommends rate control medication only-metoprolol 25 mg daily. Patient currently on Lovenox at 1 milligram/kilogram. Hemoglobin monitored closely. At discharge patient will likely not require chronic anti coagulation therapy as she has failed Xarelto in the past. Patient likely with underlying diastolic CHF in light of atrial fibrillation and pleural effusion. Ejection fraction within normal range. Recommend to continue with a 1500 cc per day fluid restriction and low-salt diet. Patient may continue with Lasix 20 mg daily. Patient with iron deficiency anemia. Patient also reports hemochromatosis. Still trying to obtain information concerning this. This can be further evaluated. Patient with hypertension. Patient will continue with metoprolol 25 mg daily. Patient with anxiety. Patient may continue with medication-Ativan as needed. Moderate malnutrition noted. Patient will continue with dietary recommendation. Vital Signs/Physical Exam: Temp Pulse Resp BP Pulse Ox 97.6 F 84 20 152/69 H 100 05/08/18 08:00 05/08/18 08:00 05/08/18 08:00 05/08/18 08:00 05/08/18 08:00 General: Alert, In no apparent distress, Oriented x3, Cooperative HEENT: Atraumatic Neck: Supple Respiratory: Clear to auscultation bilaterally, Normal air movement Cardiovascular: Irregular heart rate/rhythm (AFib rate controlled) Gastrointestinal: Normal bowel sounds, Soft and benign, Non-distended, No tenderness, No masses, No rebound, No guarding Musculoskeletal: No erythema, No tenderness, No warmth Integumentary: No tenderness/swelling, No erythema, No warmth, No cyanosis Neurological: Normal speech, Normal strength at 5/5 x4 extr, Normal tone, Normal affect Laboratory Data at Discharge: WBC 5.1 K/uL (4.3-10.9) 05/07/18 05:24 Hgb 8.5 g/dL (12.0-15.0) L 05/07/18 05:24 Hct 25.9 % (36.0-45.0) L 05/07/18 05:24 Plt Count 272 K/uL (152-406) 05/07/18 05:24 Sodium 134 mmol/L (136-145) L 05/08/18 04:59 Potassium 4.6 mmol/L (3.5-5.1) 05/08/18 04:59 BUN 27 mg/dL (7-18) H 05/08/18 04:59 Creatinine 0.75 mg/dL (0.55-1.3) 05/08/18 04:59 Glucose 100 mg/dL (74-106) 05/08/18 04:59 Phosphorus 1.9 mg/dL (2.5-4.9) L 05/08/18 04:59 Magnesium 2.1 mg/dL (1.8-2.4) 05/07/18 05:24 Total Bilirubin 0.7 mg/dL (0.2-1.0) 05/04/18 06:06 AST 17 U/L (15-37) 05/04/18 06:06 ALT 10 U/L (12-78) L 05/04/18 06:06 Alkaline Phosphatase 72 U/L (45-117) 05/04/18 06:06 Home Medications: ALPRAZolam [Xanax] 1 mg PO DAILY PRN 05/03/18 Metoprolol Succinate [Toprol Xl*] 1 tab PO DAILY PRN 05/03/18 Morphine Sulfate [Morphine Sulfate ER] 30 mg PO Q4H PRN 05/03/18 Promethazine HCl 1 tab PO Q6H PRN 05/03/18 Patient Discharge Instructions: 1. Patient ready for transfer to long-term acute care facility to continue care. 2. Continue current recommendations and medication Diet: AHA Activity: Fall precautions Time spent managing pt's care (in minutes): 55
[2018-05-08 11:49] VITALS: O2SAT 99
[2018-05-08] MEDS ORDERED: VANCOMYCIN 1.25 GM in NA CHLORIDE 0.9% 250 ML IVPB SCH (16:00)
--- NOTE | 2018-05-08 16:06 | PN ---
Subjective: The patient is lying in bed. Denies any headache, nausea, vomiting, chest pain, abdomin al pain, constipation, or diarrhea. As per family, patient is eating little better. Objective: Vital Signs: Temperature 97, pulse 84, respiration 18, blood pressure 152/69. Lungs: Basal crackles. Heart: S1, S2. Regular. Abdomen: Soft, nontender. Bowel sounds present. Extremity: No edema. Muscle wasting noted. coccygeal wound with necrotic tissue. Heel wounds with minimal discharge. Laboratory Data: WBC 5.1, hemoglobin 8.5, platelets 272. Chemistry shows sodium 134, potassium 4.6, chloride 99, bicarb 30, BUN 27, creatinine 0.75, glucose is 100. Assessment And Plan: Coccygeal stage 4 infected wound with coccygeal osteomyelitis. Bilateral heel stage 3 wound slightly improving. Continue IV antibiotic and wound care. The patient is going to be transferred to long-term facility at [facility]. We will follow the patient as needed. ABBEY/SUSAN Voice ID: [id number] Report ID: [id number]
[2018-05-08 17:37] VITALS: BP 117/56; TEMP 98.5
[2018-05-08] MEDS: ALPRAZOLAM 0.25 MG TABLET PO PRN (18:58)
== END 2018-05-08 19:10 | DRG 539 ==
LOC: ER 11:31 → ERHOLD 13:38 → 2ND 14:35
PROVIDERS: ATTEND Family Medicine
PROC: 02HV33Z Insertion of Infusion Device into Superior Vena Cava, Percutaneous Approach (ICD-10-PCS; principal; 2018-05-06)
PROC: B548ZZA Ultrasonography of Superior Vena Cava, Guidance (ICD-10-PCS; 2018-05-06)
DX: M86.18 Other acute osteomyelitis, other site (principal); L89.154 Pressure ulcer of sacral region, stage 4; L89.623 Pressure ulcer of left heel, stage 3; L89.613 Pressure ulcer of right heel, stage 3; E87.1 Hypo-osmolality and hyponatremia; L03.116 Cellulitis of left lower limb; J90 Pleural effusion, not elsewhere classified; E44.0 Moderate protein-calorie malnutrition; I50.32 Chronic diastolic (congestive) heart failure; Z68.1 Body mass index [BMI] 19.9 or less, adult; E83.119 Hemochromatosis, unspecified; I48.2 Chronic atrial fibrillation; Z86.73 Personal history of transient ischemic attack (TIA), and cerebral infarction without residual deficits; Z87.891 Personal history of nicotine dependence; D50.9 Iron deficiency anemia, unspecified; F41.9 Anxiety disorder, unspecified; J44.9 Chronic obstructive pulmonary disease, unspecified; I11.0 Hypertensive heart disease with heart failure
CPT/HCPCS: 36415; 71045; 71046; 71275; 72195; 80048; 80053; 80202; 81003; 81015; 82607; 82728; 83540; 83735; 84100; 84145; 84439; 84443; 84466; 85025; 86850; 86900; 86901; 87040; 87070; 87077; 87086; 87088; 87186; 87205; 90670; 93005; 93306; 93925; 96365; 97116; 97163; 97530; 99285; G0008; G0009; J0692; J1650; J1940; J2270; J2543; J3475; J3590; J7030; J7605; Q2035; Q9967

== ENCOUNTER 2018-07-16 13:35 | Observation (INO) | payer MEDICARE ==
[2018-07-16 14:07] LABS: Absolute Lymphocytes (CBC) 1.6 K/uL (0.7-4.9); Absolute Monocytes 0.6 K/uL (0.1-1.3); Absolute Neutrophil 4.9 K/uL (1.8-8.0); Basophils % 0.6 % (0-1.3); Eosinophils % 0.9 % (0-4.4); MPV 8.9 fL (7.6-11.3); Monocytes % 8.3 % (3.3-12.3); Protime INR 1.24; RBC Red Blood Cell Count 2.67 M/uL (3.86-4.86)
[2018-07-16] MEDS ORDERED: ASPIRIN 81 MG CHEWABLE TABLET ONE (14:09)
[2018-07-16 14:32] LABS: Magnesium 1.9 mg/dL (1.8-2.4); Potassium 3.8 mmol/L (3.5-5.1); Troponin (Emerg Dept Use Only) 0.02 ng/mL (0.0-0.045)
[2018-07-16 14:35] LABS: Anisocytosis 1+; Blood Morphology Comment NOTED (NOT SEEN); Platelet Estimate ADEQ
[2018-07-16] MEDS ORDERED: METOPROLOL TAR 50 MG TAB ONE (14:46)
[2018-07-16] MEDS ORDERED: METOPROLOL TARTRATE 5 MG/5 ML INJ IV ONE (14:46)
--- NOTE | 2018-07-16 15:21 | RAD REPORT ---
EXAM DESCRIPTION: RAD - Chest Single View - 07/16/2018 3:11 pm CLINICAL HISTORY: Cardiac a arrhythmia, irregular pulse COMPARISON: May 08 TECHNIQUE: AP portable chest image was obtained 1444 hours . FINDINGS: Baseline interstitial pattern is increased slightly from comparison. Heart size is fractio rosemary larger. Bilateral pleural effusions are present. No pneumothorax seen. Trachea is midline. No a cute bony abnormality seen. No acute aortic findings suspected. IMPRESSION: Mild CHF/ volume overload pattern.
--- NOTE | 2018-07-16 15:46 | EDPHYS ---
Physician Documentation [facility] Name: Laila Johnson Age: 77 yrs Sex: Female : 1940 Arrival Date: 07/16/2018 Time: 13:36 Bed 6 Private MD: ED Physician Benito Parekh HPI: 07/16 13:41 This 77 yrs old Female presents to ER via EMS with complaints of Irregular rn Pulse. 13:41 The patient presents with a history of heart racing. Onset: The symptoms/episode rn began/occurred at an unknown time. Duration: The patient or guardian reports a single episode, that is still ongoing. Modifying factors: The symptoms are aggravated by nothing. The symptoms are alleviated by nothing. Severity of symptoms: At their worst the symptoms were moderate in the emergency department the symptoms are unchanged. It is unknown whether or not the patient has had similar symptoms in the past. Reports sent by home health nurse/pcp for evaluation, home health nurse noticed some leg swelling and fast heart rate. Patient feels anxious and mild sob, no fever, no vomiting/diarrhea. . Historical: - Home Meds: 13:51 aspirin 81 mg Oral chew 1 tab once daily [Active]; tw2 - PMHx: 13:51 Anemia; Cellulitis; hemachromotosis; Migraines; stroke 2013; - PSHx: 13:51 liver biopsy; tw - Immunization history:: Adult Immunizations. - Social history:: Smoking status: . - Family history:: not pertinent. - Ebola Screening: : Patient denies travel to an Ebola-affected area in the 21 days before illness onset. - Hospitalizations: : No recent hospitalization is reported. ROS: 13:41 Constitutional: Negative for fever, chills, and weight loss, Eyes: Negative for injury, rn pain, redness, and discharge, Cardiovascular: Negative for chest pain Respiratory: Negative for wheezing, and pleuritic chest pain, Abdomen/GI: Negative for abdominal pain, nausea, vomiting, diarrhea, and constipation, MS/Extremity: Negative for injury and deformity, Skin: Negative for injury, rash, and discoloration, Neuro: + generalized weakness Exam: 13:41 Constitutional: Thin female, appears anxious Head/Face: Normocephalic, atraumatic. rn Eyes: Pupils equal round and reactive to light, extra-ocular motions intact. Lids and lashes normal. Conjunctiva and sclera are non-icteric and not injected. Cornea within normal limits. Periorbital areas with no swelling, redness, or edema. ENT: dry MM Cardiovascular: Irregularly irregular rhythm, tachycardic Respiratory: MIld tachypnea, no retractions Abdomen/GI: soft, non-tender MS/ Extremity: Pulses equal, no cyanosis. Neurovascular intact. Full, normal range of motion. Equal circumference. Neuro: Awake and alert, GCS 15, oriented to person, place, time, and situation. Cranial nerves II-XII grossly intact. Motor strength 5/5 in all extremities. Sensory grossly intact. Cerebellar exam normal. Normal gait. Vital Signs: 13:41 BP 166 / 107; Pulse 143; Resp 19; Temp 97.7(TE); Pulse Ox 100% on R/A; Weight 49.9 kg tw2 (R); Height 5 ft. 4 in. (162.56 cm); Pain 10/10; 14:00 BP 152 / 112; Pulse 144; Resp 22; Pulse Ox 99% on 2 lpm NC; tw2 14:35 BP 128 / 85; Pulse 106; Resp 24; Pulse Ox 98% on 2 lpm NC; tw2 14:40 BP 114 / 102; Pulse 97; Resp 19; Pulse Ox 99% on 2 lpm NC; tw2 14:45 BP 154 / 93; Pulse 100; Resp 20; Pulse Ox 2% on NC; tw2 14:50 BP 141 / 97; Pulse 81; Resp 19; Pulse Ox 99% on R/A; tw2 15:10 BP 144 / 87; Pulse 72; Resp 19; Pulse Ox 95% on 2 lpm NC; tw2 15:58 BP 139 / 69; Pulse 78; Resp 20; Pulse Ox 98% on R/A; jb1 16:54 BP 146 / 80; Pulse 77; Resp 19; Pulse Ox 99% on 2 lpm NC; iw 17:34 BP 137 / 72; Pulse 96; Resp 17; Pulse Ox 99% on 2 lpm NC; tw2 13:41 Body Mass Index 18.88 (49.90 kg, 162.56 cm) tw2 13:41 "wound on my bottom hurts" tw2 MDM: 13:38 Patient medically screened. rn 15:41 Differential diagnosis: arrythmia, dehydration, CHF, afib with RVR. Data reviewed: rn vital signs, nurses notes, lab test result(s), EKG, radiologic studies, and as a result, I will admit patient. Counseling: I had a detailed discussion with the patient and/or guardian regarding: the historical points, exam findings, and any diagnostic results supporting the discharge/admit diagnosis, lab results, radiology results, the need for further work-up and treatment in the hospital. Response to treatment: the patient's symptoms have markedly improved after treatment, and as a result, I will admit patient. Admission orders: after a detailed discussion of the patient's condition and case, the admit orders are written by me. ED course: Still in Afib but rate controlled, will admit for further care, admitted to Dr. Kaur. . 07/16 13:39 Order name: Basic Metabolic Panel; Complete Time: 14:51 rn 07/16 13:39 Order name: CBC with Diff; Complete Time: 14:51 rn 07/16 13:39 Order name: Magnesium; Complete Time: 14:51 rn 07/16 13:39 Order name: NT PRO-BNP; Complete Time: 14:51 rn 07/16 13:39 Order name: PT-INR; Complete Time: 14:51 rn 07/16 13:39 Order name: Troponin (emerg Dept Use Only); Complete Time: 14:51 rn 07/16 13:39 Order name: XRAY Chest (1 view); Complete Time: 15:31 rn 07/16 13:39 Order name: EKG; Complete Time: 13:40 rn 07/16 13:39 Order name: TSH; Complete Time: 14:51 rn 07/16 13:39 Order name: T4 Free; Complete Time: 14:51 rn 07/16 14:14 Order name: Manual Differential; Complete Time: 14:51 EDMS 07/16 13:39 Order name: Cardiac monitoring; Complete Time: 13:49 rn 07/16 13:39 Order name: EKG - Nurse/Tech; Complete Time: 13:49 rn 07/16 13:39 Order name: IV Saline Lock; Complete Time: 13:49 rn 07/16 13:39 Order name: Labs collected and sent; Complete Time: 13:49 rn 07/16 13:39 Order name: O2 Per Protocol; Complete Time: 13:49 rn 07/16 13:39 Order name: O2 Sat Monitoring; Complete Time: 13:49 rn Administered Medications: 13:57 Drug: Aspirin Chewable Tablet 324 mg Route: PO; tw2 17:03 Follow up: Response: No adverse reaction tw2 14:33 Drug: Metoprolol TARTRATE (Lopressor) 50 mg Route: PO; tw2 17:03 Follow up: Response: No adverse reaction tw2 14:35 Drug: Metoprolol 5 mg Route: IVP; Site: right forearm; tw2 14:40 Drug: Metoprolol 5 mg Route: IVP; Site: right forearm; tw2 14:45 Drug: Metoprolol 5 mg Route: IVP; Site: right forearm; tw2 15:10 Follow up: BP 144 / 87; Pulse 72 bpm; Resp 19 bpm; Pulse Ox 95% 2 lpm Nasal Cannula; tw2 Response: No adverse reaction; Blood pressure is lowered; Blood pressure is lowered, heart rate lowered Disposition: 07/16/18 15:44 Hospitalization ordered by Philippe Kaur for Inpatient Admission. Preliminary diagnosis are Paroxysmal atrial fibrillation, Pulmonary edema, Anemia, unspecified. - Bed requested for Telemetry/MedSurg (Inpatient). - Status is Inpatient Admission. tw2 - Condition is Stable. - Problem is new. - Symptoms have improved. UTI on Admission? No Critical care time excluding procedures: 15:45 Critical care time: Bedside Care: 25 minutes, Family Intervention: 5 minutes. Total rn time: 30 minutes Signatures: Dispatcher [employer] EDMS Benito Parekh MD MD rn Wise, Tara, RN RN [facility] Coleen Reyes Corrections: (The following items were deleted from the chart) 17:03 15:44 Hospitalization Ordered by Philippe Kaur MD for Inpatient Admission. Preliminary eb diagnosis is Paroxysmal atrial fibrillation; Pulmonary edema; Anemia, unspecified. Bed requested for Telemetry/MedSurg (Inpatient). Status is Inpatient Admission. Condition is Stable. Problem is new. Symptoms have improved. UTI on Admission? No. rn 17:59 17:03 07/16/2018 15:44 Hospitalization Ordered by Philippe Kaur MD for Inpatient tw2 Admission. Preliminary diagnosis is Paroxysmal atrial fibrillation; Pulmonary edema; Anemia, unspecified. Bed requested for Telemetry/MedSurg (Inpatient). Status is Inpatient Admission. Condition is Stable. Problem is new. Symptoms have improved. UTI on Admission? No. eb
--- NOTE | 2018-07-16 15:46 | ER ---
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 Lawton is pcp. Transition of care: patient was not received from another setting of care. Onset of symptoms was July 16, 2018. Risk Assessment: Do you want to hurt yourself or someone else? Patient reports no desire to harm self or others. Initial Sepsis Screen: Does the patient meet any 2 criteria? HR > 90 bpm. Does the patient have a suspected source of infection? Yes: Skin breakdown/wound. Care prior to arrival: None. 13:38 Method Of Arrival: EMS: [facility] tw2 13:38 Acuity: LUCIE 2 tw2 Triage Assessment: 13:43 General: Appears slender, Behavior is anxious. Pain: Complains of pain in coccyx. tw2 Cardiovascular:. Historical: - Home Meds: 13:51 aspirin 81 mg Oral chew 1 tab once daily [Active]; tw2 - PMHx: 13:51 Anemia; Cellulitis; hemachromotosis; Migraines; stroke 2013; tw2 - PSHx: 13:51 liver biopsy; tw2 - Immunization history:: Adult Immunizations. - Social history:: Smoking status: . - Family history:: not pertinent. - Ebola Screening: : Patient denies travel to an Ebola-affected area in the 21 days before illness onset. - Hospitalizations: : No recent hospitalization is reported. Screenin:02 Abuse screen: Denies threats or abuse. Nutritional screening: No deficits noted. tw2 Tuberculosis screening: No symptoms or risk factors identified. Fall Risk Secondary diagnosis (15 points) impaired mobility, CVA. Assessment: 14:12 General: Appears in no apparent distress. slender, Behavior is anxious. Pain: Complains tw2 of pain in buttocks and coccyx Pain does not radiate. Pain began wound dressing in place, states homehealth just changed the dressing today. Neuro: Level of Consciousness is awake, alert, obeys commands, Oriented to person, place, situation. Cardiovascular: Heart tones S1 S2 Capillary refill < 3 seconds. Cardiovascular: Edema present b/l arms and legs. Respiratory: Reports shortness of breath Airway is patent Respiratory effort is even, unlabored, Respiratory pattern is tachypnea Breath sounds are clear bilaterally. GI: No signs and/or symptoms were reported involving the gastrointestinal system. GI: Abdomen is flat, Bowel sounds present X 4 quads. : No signs and/or symptoms were reported regarding the genitourinary system. EENT: No signs and/or symptoms were reported regarding the EENT system. Derm: Skin is pale, Skin temperature is warm. Musculoskeletal: Range of motion: intact in all extremities. 15:50 Reassessment: Patient appears in no apparent distress at this time. Patient and/or iw family updated on plan of care and expected duration. Pain level reassessed. Patient is alert, oriented x 3, equal unlabored respirations, skin warm/dry/pink. 16:55 Reassessment: Patient appears in no apparent distress at this time. Patient and/or iw family updated on plan of care and expected duration. Pain level reassessed. Patient is alert, oriented x 3, equal unlabored respirations, skin warm/dry/pink. Vital Signs: 13:41 BP 166 / 107; Pulse 143; Resp 19; Temp 97.7(TE); Pulse Ox 100% on R/A; Weight 49.9 kg tw2 (R); Height 5 ft. 4 in. (162.56 cm); Pain 10/10; 14:00 BP 152 / 112; Pulse 144; Resp 22; Pulse Ox 99% on 2 lpm NC; tw2 14:35 BP 128 / 85; Pulse 106; Resp 24; Pulse Ox 98% on 2 lpm NC; tw2 14:40 BP 114 / 102; Pulse 97; Resp 19; Pulse Ox 99% on 2 lpm NC; tw2 14:45 BP 154 / 93; Pulse 100; Resp 20; Pulse Ox 2% on NC; tw2 14:50 BP 141 / 97; Pulse 81; Resp 19; Pulse Ox 99% on R/A; tw2 15:10 BP 144 / 87; Pulse 72; Resp 19; Pulse Ox 95% on 2 lpm NC; tw2 15:58 BP 139 / 69; Pulse 78; Resp 20; Pulse Ox 98% on R/A; jb1 16:54 BP 146 / 80; Pulse 77; Resp 19; Pulse Ox 99% on 2 lpm NC; iw 17:34 BP 137 / 72; Pulse 96; Resp 17; Pulse Ox 99% on 2 lpm NC; tw2 13:41 Body Mass Index 18.88 (49.90 kg, 162.56 cm) tw2 13:41 "wound on my bottom hurts" tw2 ED Course: 13:36 Patient arrived in ED. tw2 13:38 Benito Parekh MD is Attending Physician. rn 13:38 EKG done, by physical therapy technician. reviewed by Benito Parekh MD. at1 13:38 Side rails up X2. conveyor monitor on. Pulse ox on. NIBP on. tw2 13:41 Triage completed. tw2 13:43 Arm band placed on. tw2 13:45 Initial lab(s) drawn, by me, sent to lab. Inserted saline lock: 22 gauge in right aa5 forearm, using aseptic technique. Blood collected. 13:54 Mellissa Cruz, JUAN JOSÉ is Primary Nurse. tw2 14:02 Patient maintains SpO2 saturation greater than 95% on room air. tw2 15:12 XRAY Chest (1 view) In Process Unspecified. EDMS 15:43 Philippe Kaur MD is Hospitalizing Provider. rn 17:14 Awaiting: unsuccessful attempt to call report at this time. tw2 17:38 No provider procedures requiring assistance completed. Patient admitted, IV remains in tw2 place. Administered Medications: 13:57 Drug: Aspirin Chewable Tablet 324 mg Route: PO; tw2 17:03 Follow up: Response: No adverse reaction tw2 14:33 Drug: Metoprolol TARTRATE (Lopressor) 50 mg Route: PO; tw2 17:03 Follow up: Response: No adverse reaction tw2 14:35 Drug: Metoprolol 5 mg Route: IVP; Site: right forearm; tw2 14:40 Drug: Metoprolol 5 mg Route: IVP; Site: right forearm; tw2 14:45 Drug: Metoprolol 5 mg Route: IVP; Site: right forearm; tw2 15:10 Follow up: BP 144 / 87; Pulse 72 bpm; Resp 19 bpm; Pulse Ox 95% 2 lpm Nasal Cannula; tw2 Response: No adverse reaction; Blood pressure is lowered; Blood pressure is lowered, heart rate lowered Outcome: 15:44 Decision to Hospitalize by Provider. rn 17:39 Admitted to Med/surg accompanied by tech, via stretcher, room 425, with oxygen, with tw2 chart, Report called to JUAN JOSÉ Lindsay 17:39 Admitted to Med/surg 17:39 Condition: stable 17:39 Instructed on the need for admit. 17:59 Patient left the ED. tw2 Signatures: Dispatcher [employer] Stevo Herzog jb1 Shira Winkler, RN Benito Avila MD MD rn Calderon, Audri, RN RN aa5 Gillian Christianson, police sergeant EKG Tat1 Mellissa Cruz RN RN tw2
[2018-07-16] MEDS ORDERED: FUROSEMIDE 20 MG/ 2ML VIAL IV ONE (17:02)
[2018-07-16] MEDS ORDERED: NA CHLORIDE 0.9% 250 ML IV SCH (17:03)
--- NOTE | 2018-07-16 17:05 | EKG ---
Test Date: 2018-07-16 Test Time: 13:35:41 Granulating Machine Operator: KRISTIE MEASUREMENT RESULTS: Intervals: Rate: 143 IA: QRSD: 120 QT: 338 QTc: 521 Ong: P: IA: QRS: 96 T: 65 INTERPRETIVE STATEMENTS: Atrial fibrillation with rapid ventricular response Right bundle branch block Abnormal ECG Compared to ECG 05/06/2018 13:11:33 No significant changes Electronically Signed On 07-16-18 17:04:49 CDT by Shaun Gallagher
[2018-07-16] MEDS ORDERED: ONDANSETRON 4 MG/2 ML VIAL IV PRN (18:18)
[2018-07-16] MEDS ORDERED: ACETAMINOPHEN 500 MG TAB PO PRN (18:18)
[2018-07-16] MEDS ORDERED: METOPROLOL TARTRATE 5 MG/5 ML INJ IV PRN (18:18)
[2018-07-16] MEDS: METOPROLOL TAR 50 MG TAB PO SCH (18:28)
[2018-07-16] MEDS ORDERED: ALPRAZOLAM 1 MG TABLET PO PRN (21:05)
[2018-07-16] MEDS ORDERED: NA CHLORIDE 0.9% 250 ML ONE (21:21)
[2018-07-16] MEDS ORDERED: POTASSIUM CL SA 10 MEQ TAB PO ONE (23:14)
[2018-07-17] MEDS ORDERED: TRAMADOL HCL 50 MG TAB PO ONE (01:13)
[2018-07-17] MEDS: FUROSEMIDE 40 MG/4 ML VIAL IV SCH ×2 (01:25→06:36)
--- NOTE | 2018-07-17 03:59 | HP ---
Date of Admission: 07/16/2018 Chief Complaint: Atrial fibrillation with rapid ventricular response. Primary Care Physician: Dr. Kolb. Consultants: Dr. Shine with Cardiology. Code Status: Full code. No medical power of sports attorney or living will. History Of Present Illness: The patient is a 77-year-old female with past medical history of atrial fibrillation, not on anticoagulation due to history of GI bleed and recurrent falls and recent episod e of epistaxis, which required hospitalization as well as chronic anemia. The patient was in her the [facility] state of health until day of admission when she was seen by her home health nurses, was found to b e tachycardic, and was sent over to the ER for further evaluation. The patient denies any chest pain . Does report some palpitations. No significant shortness of breath. The patient denies any cough, fever, chills, nausea, or vomiting. The patient's heart rate was in the 140s. The patient was give n IV Lopressor, which improved her heart rate. The patient was then referred for admission. The pat ient's symptoms are constant, moderate, and progressively worsening. 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 Past Surgical History: Cholecystectomy, breast surgery on the left, cyst removed, sinus surgery, riaz icose vein surgery, tubal ligation. Social History: The patient smoked half a pack per day for 35 years, quit 20 years ago. Lives with her . The patient is able to walk, but does require assistance and has home health. Family History: Mother from a surgery, complications with her esophagus. Medications: List reviewed. Allergies: PROMETHAZINE. Review of Systems: An 11-point system reviewed and negative except as per HPI. Physical Examination: Vital Signs: Blood pressure 166/107, pulse 143, respirations 19, temperature 97.7, O2 100% on room a ir. BMI 18. HEENT: Normocephalic, atraumatic. PERRLA. EOMI. Dry mucous membranes. Oropharynx is clear. Conj unctivae anicteric. Neck: Supple. No JVD. Trachea midline. CV: S1, S2. Irregularly irregular. Peripheral pulses present. Respiratory: Diminished breath sounds. Some crackles present. No use of accessory muscles. No str idor. Gastrointestinal: Abdomen is soft, nontender, nondistended. Positive bowel sounds. No guarding or rigidity. Extremities: No clubbing or cyanosis. The patient has 2+ peripheral edema. No calf tenderness. Neurologic: Cranial nerves II through XII intact grossly. No focal neurological deficit. Speech is normal. Skin: The patient has stage III coccygeal ulcer. No surrounding erythema. No signs of infection. No drainage. PSYCHIATRIC: Mood is depressed. Affect is congruent. Mood is flat. Insight and judgment are fair. Laboratory Data: Sodium 139, potassium 3.8, chloride 104, CO2 27, BUN 8, creatinine 1.17, glucose 11 2, calcium 8.3, magnesium 1.9. Troponin 0.02. BNP 4202. TSH 6, free T4 is 1. WBC 7.2, H and H 6.9 /22, MCV 82.6, MCH is 25.8, platelets 296. INR is 1.24. Chest x-ray shows mild CHF, volume overload pattern. Assessment: A 77-year-old female with: 1.Atrial fibrillation with rapid ventricular response, improved with IV Lopressor. We will continue metoprolol. The patient has history of chronic atrial fibrillation, now in rapid ventricular respon se, not on anticoagulation due to history of gastrointestinal bleed and currently anemic with hemoglo bin of 6.9. The patient also has multiple episodes of epistaxis and recent blood transfusions, also risk for fall. 2.Acute on chronic anemia, likely anemia of chronic disease versus acute blood loss anemia due to re cent episodes of epistaxis. No current bleeding. We will transfuse one unit PRBCs and monitor H and H. We will give 20 mg of Lasix IV after transfusion. 3.History of cerebrovascular accident. 4.Chronic back pain, midline, without sciatica. 5.Failure to thrive, cachexia. BMI 18. 6.Hypothyroidism. TSH is elevated at 6. We will start on Synthroid and monitor TSH. 7.Coccygeal stage III ulcer present on admission. We will have [facility] address the wou nd. The patient apparently was prescribed p.o. antibiotics. We will restart home medications once r econciled. 8.Deep vein thrombosis prophylaxis with SCDs. No chemical anticoagulation due to anemia. Plan: Admit the patient to Med-Surg, place as inpatient. Length of stay greater than 2 midnights. We will consult Cardiology. YADI Voice ID: [id number]
[2018-07-17 04:15] LABS: Albumin 2.9 g/dL (3.4-5.0); Bilirubin Total 1.3 mg/dL (0.2-1.0); Phosphorus 3.6 mg/dL (2.5-4.9); Potassium 4.3 mmol/L (3.5-5.1); Protein, Total 6.7 g/dL (6.4-8.2)
[2018-07-17 04:23] LABS: Absolute Lymphocytes (CBC) 1.8 K/uL (0.7-4.9); Absolute Monocytes 0.8 K/uL (0.1-1.3); Absolute Neutrophil 4.8 K/uL (1.8-8.0); Basophils % 0.9 % (0-1.3); Eosinophils % 1.7 % (0-4.4); Hematocrit 28.1 % (36.0-45.0); Lymphocytes % 23.4 % (15.3-44.8); MPV 9.4 fL (7.6-11.3); Monocytes % 10.2 % (3.3-12.3); RBC Red Blood Cell Count 3.32 M/uL (3.86-4.86)
[2018-07-17 04:48] LABS: Urine Appearance CLEAR; Urine Bilirubin NEGATIVE (NEG); Urine Blood NEGATIVE (NEG); Urine Color YELLOW; Urine Glucose NEGATIVE (NEG); Urine Protein NEGATIVE (NEG); Urine Specific Gravity <=1.005 (1.005-1.030); Urine Urobilinogen 0.2 mg/dL (0.2-1.0)
[2018-07-17 04:50] LABS: Urine Microscopic Reflex NO UMIC
[2018-07-17] MEDS: METOPROLOL TAR 50 MG TAB PO SCH (06:36)
[2018-07-17] MEDS ORDERED: MEDIHONEY 44 ML TOPICAL TUBE TOP SCH (09:00)
[2018-07-17] MEDS ORDERED: CEFUROXIME 250 MG TAB PO SCH (09:32)
[2018-07-17 10:27] VITALS: BMI 19.5
--- NOTE | 2018-07-17 12:23 | CON ---
Date of Consultation: 07/17/2018 History Of Present Illness: Mrs. Johnson is 77. She was brought to the hospital yesterday from home. Her Home Health team visited her and noted her heart rate was increased. Mrs. Johnson has had atrial fibrillation for many years, not on anticoagulation, and when we look at the medicine she was receivi ng at home they do not include anything for heart rate control and she has been on metoprolol. Her h eart rate has been fine. It is 89, this morning, on metoprolol 50 b.i.d. She is a very ill lady, ch ronic disease. She has a chronic decubitus ulcer, loose very little on her flexion contractures hard ly ever gets out of bed and when we saw her here in April, she was sent to a long-term acute care on treatment for that decubitus ulcer. Was on beta-blockers then. Somewhere along the line the beta -blockers were stopped. Her heart rate went up and that prompted this admission. The patient has a history of GI blood loss, chronic anemia. Her last ejection fraction was April. It was an echoca rdiogram. Everything looked very acceptable there. Physical Examination: General: The patients blood pressure is 156/75, heart rate 89, respiratory rate about 10, asleep but easily arousable. Lungs: Clear. Extremities: Trace edema. Distal pulses diminished. Her decubital ulcer is covered. I have not lo oked at it, but it does look smaller compared to April. Impression: The patient's atrial fibrillation should be treated with chronic beta-amilcar therapy or some other agent to control the heart rate. Not a candidate for anticoagulation. Not a candidate f or antiarrhythmic drugs or ablation or any other attempts to try and reestablish sinus rhythm. RAYMON/SUSAN Voice ID: [id number] Report ID: [id number]
[2018-07-17 12:47] VITALS: BP 158/83; TEMP 97.2
[2018-07-17 15:00] VITALS: O2SAT 96
--- NOTE | 2018-07-18 02:05 | DS ---
Date of Discharge: 07/17/2018 Regional Guide: Dr. Gallagher with Cardiology. Admitting Diagnoses: 1.Atrial fibrillation with RVR. 2.Acute on chronic anemia due to anemia of chronic disease. 3.History of CVA. 4.Chronic back pain, midline, without sciatica. 5.Failure to thrive. 6.Hypothyroidism. 7.Coccygeal ulcer, stage III, present on admission. Discharge Diagnoses: 1.Afib with RVR, now controlled ventricular rate. Not a candidate for anticoagulation. 2.Acute on chronic anemia due to anemia of chronic disease and superimposed on acute blood loss anem ia due to recent episodes of epistaxis, status post 1 unit of PRBCs. 3.History of CVA. 4.Chronic back pain, midline, without sciatica. 5.Failure to thrive, BMI 18. 6.Hypothyroidism. 7.Coccygeal ulcer, stage III. We will continue with wound care and Medihoney. Hospital Course: The patient is a 77-year-old female, comes into the hospital for atrial fibrillatio n with RVR. She was evaluated by her home health nurses and found to be in Afib with RVR. The patie nt was given IV Lopressor and her rate improved. She was started on metoprolol, unclear why the tami ent has not been on metoprolol currently. She was discharged with metoprolol previously. The patien t's rate improved. Dr. Gallagher with Cardiology was consulted. The patient had controlled ventricular rate with metoprolol 50 b.i.d. The patient also has a stage III coccygeal ulcer, which has been treated in the past, currently on ce furoxime. The patient was started on Medihoney. There were no signs of acute infection. The patien t will need to continue going to wound care, has seen Infectious Disease in the past. The patient di d well overall. She did not have any further shortness of breath. She did have low hemoglobin level , which is exacerbation of her acute on chronic anemia. She has had chronic anemia and recently had some blood transfusions and she also had recent epistaxis episodes, which may have exacerbated the sy mptoms. The patient received 1 unit PRBCs. Her hemoglobin improved to 9 from 6.9. The patient was then cleared for discharge from sales consultant residential manager's standpoint. She was then sent home in a stable conditio n. Activity: As tolerated. Fall precautions. Diet: Heart healthy. Medications: As per medication reconciliation list. Followup: Follow up with primary care physician in 2-3 days. Follow up art teacher, Dr. Gallagher, in 2 weeks. Follow up in wound healing center as scheduled. Return to ER for worsening condition. Physical Examination: General: Awake, alert, oriented x3. Elderly female, frail, cachectic. CV: S1, S2. Irregularly irregular. Respiratory: Moving air well bilaterally. Abdomen: Soft, nontender, nondistended. Positive bowel sounds. Extremities: No clubbing, cyanosis. Peripheral edema is present. Neuro: The patient has weakness. Speech is normal. SA/MODL Voice ID: [id number] Report ID: [id number]
== END 2018-07-17 15:51 | disposition home or self-care (01) ==
LOC: ER 13:35 → ERHOLD 16:01 → INTOOBSV 16:01 → 4TH 17:42
PROVIDERS: ADMIT Family Medicine; ATTEND Family Medicine
DX: I48.2 Chronic atrial fibrillation (principal); D64.9 Anemia, unspecified; M54.9 Dorsalgia, unspecified; R62.7 Adult failure to thrive; Z68.1 Body mass index [BMI] 19.9 or less, adult; E03.9 Hypothyroidism, unspecified; L98.419 Non-pressure chronic ulcer of buttock with unspecified severity; Z87.891 Personal history of nicotine dependence; Z86.73 Personal history of transient ischemic attack (TIA), and cerebral infarction without residual deficits
CPT/HCPCS: 36430; 93005; 85025 ×2; 80048; 36415; 86900; 83735 ×2; 86850; 84100; 85610; 86901; 84443; 81003; 84484; 84439; 80053; 83880; 71045; 94760 ×3; 96374; 99285; J1940 ×2; P9016

== ENCOUNTER 2018-08-10 14:18 | Emergency (ER) | payer MEDICARE ==
--- NOTE | 2018-08-10 15:12 | RAD REPORT ---
EXAM DESCRIPTION: CT - Head Brain Wo Cont - 08/10/2018 2:42 pm CLINICAL HISTORY: Fall, head injury, loss of consciousness COMPARISON: CT head May 2015 TECHNIQUE: Axial 5 mm thick images of the head were obtained without IV contrast. All CT scans are performed using dose optimization technique as appropriate and may include automated exposure control or mA/KV adjustment according to patient size. FINDINGS: No intracranial hemorrhage, mass, edema or shift of mid-line structures. No acute cortical based infarction. 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 Patient has advanced atrophy and chronic ischemic change. Ventricles are in proportion to volume loss. Intracranial findings are n ot substantially different from comparison. Mastoid air cells are clear. Mucosal thickening is seen in the right maxillary sinus which is only pa rtially imaged. No acute bony findings. IMPRESSION: No hemorrhage or acute intracranial finding. Advanced atrophy and chronic ischemic change along with old left occipital infarction. Intracranial findings are similar to comparison.
[2018-08-10 15:24] LABS: Absolute Lymphocytes (CBC) 1.3 K/uL (0.7-4.9); Absolute Monocytes 0.8 K/uL (0.1-1.3); Absolute Neutrophil 5.3 K/uL (1.8-8.0); Basophils % 0.6 % (0-1.3); Eosinophils % 1.5 % (0-4.4); Lymphocytes % 17.5 % (15.3-44.8); MPV 8.8 fL (7.6-11.3); RBC Red Blood Cell Count 4.16 M/uL (3.86-4.86)
[2018-08-10] MEDS ORDERED: NA CHLORIDE 0.9% 1,000 ML ONE (15:35)
[2018-08-10] MEDS ORDERED: LORazepam 2 MG/ML VIAL ONE (15:35)
[2018-08-10 15:46] LABS: ALT/SGPT 17 U/L (12-78); AST/SGOT 18 U/L (15-37); Albumin 3.6 g/dL (3.4-5.0); Alkaline Phosphatase 109 U/L (45-117); BUN Blood Urea Nitrogen 38 mg/dL (7-18); Bicarbonate 32 mmol/L (21-32); Bilirubin Direct 0.1 mg/dL (0-0.2); Bilirubin Total 0.4 mg/dL (0.2-1.0); CKMB Creatine Kinase MB < 1.0 ng/mL (0.3-3.6); Creatine Phosphokinase 26 U/L (26-192); Glucose Level 75 mg/dL (74-106); Lipase 90 U/L (73-393); Magnesium 2.4 mg/dL (1.8-2.4); Potassium 4.5 mmol/L (3.5-5.1); Protein, Total 8.6 g/dL (6.4-8.2); Sodium Level 136 mmol/L (136-145); Troponin (Emerg Dept Use Only) < 0.02 ng/mL (0.0-0.045)
[2018-08-10 15:51] LABS: Urine White Blood Cell Casts OK
[2018-08-10 15:52] LABS: Anisocytosis 1+; Blood Morphology Comment NOTED (NOT SEEN); Hypochromasia 1+; Platelet Estimate ADEQ
--- NOTE | 2018-08-10 16:15 | ER ---
Nurse's Notes [facility] Name: Laila Johnson Age: 77 yrs Sex: Female : 1940 Arrival Date: 08/10/2018 Time: 14:19 Bed 8 Private MD: Diagnosis: Syncope and collapse Presentation: 08/10 14:20 Presenting complaint: EMS states: FALL WITH LOC AT HOME. Transition of care: patient bp was not received from another setting of care. Onset of symptoms was August 10, 2018 at 14:00. Risk Assessment: Do you want to hurt yourself or someone else? Patient reports no desire to harm self or others. Initial Sepsis Screen: Does the patient meet any 2 criteria? No. Patient's initial sepsis screen is negative. Does the patient have a suspected source of infection? No. Patient's initial sepsis screen is negative. Care prior to arrival: None. 14:20 Method Of Arrival: EMS: [facility] bp 14:20 Acuity: LUCIE 3 bp Triage Assessment: 14:30 General: Appears distressed, comfortable, slender, malnourished, Behavior is bp cooperative, anxious. Pain: Denies pain. EENT: No deficits noted. Neuro: Level of Consciousness is awake, obeys commands, lethargic, Oriented to Appropriate for age. Cardiovascular: No deficits noted. Respiratory: Airway is patent Respiratory effort is even, unlabored, Respiratory pattern is regular, symmetrical. GI: No signs and/or symptoms were reported involving the gastrointestinal system. : No signs and/or symptoms were reported regarding the genitourinary system. Derm: Wound noted Other: R ELBOW SKIN TEAR, R BROW ABRASION. Musculoskeletal: Circulation, motion, and sensation intact. Range of motion: intact in all extremities. Historical: - Allergies: 14:30 No Known Allergies; bp - Home Meds: 14:30 Phenergan Oral 25 mg [Active]; metoprolol tartrate 50 mg Oral tab 1 tab 2 times per day bp [Active]; cefdinir 300 mg oral cap 1 cap every 12 hours [Active]; levothyroxine 25 mcg tab 1 tab once daily [Active]; furosemide 40 mg Oral tab 1 tab once daily [Active]; potassium chloride 10 mEq Oral cpER 1 cap once daily [Active]; morphine 30 mg Oral tab 1 tab every 4 hours [Active]; Xanax 2 mg Oral tab 1 tab 4 times per day [Active]; - PMHx: 14:30 Anemia; Cellulitis; hemachromotosis; Migraines; stroke 2014; bp - Immunization history:: Adult Immunizations up to date. - Social history:: Smoking status: Patient/guardian denies using tobacco, Patient/guardian denies using alcohol, street drugs, The patient lives with family. - Ebola Screening: : No symptoms or risks identified at this time. - Family history:: not pertinent. Screenin:30 Abuse screen: Denies threats or abuse. Denies injuries from another. Nutritional bp screening: No deficits noted. Tuberculosis screening: No symptoms or risk factors identified. Fall Risk None identified. Assessment: 14:30 General: SEE TRIAGE NOTE. bp 15:30 Reassessment: TRANSFUSION CANCELLED 2/2 LAB VALUES. bp 16:30 Reassessment: ALL CURRENT ORDERS IN PROCESS, D/C PENDING. bp 16:45 Reassessment: PT D/C HOME VIA W/C WITH FAMILY, DX WITH SYNCOPE. bp Vital Signs: 14:30 BP 102 / 62; Pulse 70; Resp 14; Temp 98.1; Pulse Ox 100% ; Weight 49.9 kg; Height 5 ft. bp 4 in. (162.56 cm); 15:30 BP 114 / 63; Pulse 47; Resp 16; Pulse Ox 100% ; bp 16:30 BP 123 / 67; Pulse 63; Resp 14; Pulse Ox 100% ; bp 14:30 Body Mass Index 18.88 (49.90 kg, 162.56 cm) bp ED Course: 14:19 Patient arrived in ED. bp 14:20 Abiel Perdomo MD is Attending Physician. joceline 14:25 Triage completed. bp 14:30 Candace Wilkerson MD is Attending Physician. ma2 14:30 Arm band placed on. bp 14:30 Patient has correct armband on for positive identification. Bed in low position. Call bp light in reach. Side rails up X2. Adult w/ patient. 14:33 Garcia Clemens, JUAN JOSÉ is Primary Nurse. bp 14:44 CT Head Brain wo Cont In Process Unspecified. EDMS 15:00 Inserted saline lock: 22 gauge in right forearm, using aseptic technique. Blood bp collected. 16:45 No provider procedures requiring assistance completed. IV discontinued, intact, bp bleeding controlled, No redness/swelling at site. Pressure dressing applied. Administered Medications: 15:10 Drug: NS 0.9% 1000 ml Route: IV; Rate: 1 bolus; Site: right forearm; bp 16:00 Follow up: IV Status: Completed infusion; IV Intake: 1000ml bp 15:10 Drug: Ativan 1 mg Route: IVP; Site: right forearm; bp 15:43 Follow up: Response: Anxiety decreased bp Intake: 16:00 IV: 1000ml; Total: 1000ml. bp Outcome: 16:13 Discharge ordered by MD. caldwell 16:46 Discharged to home via wheelchair, with family. bp 16:46 Condition: stable 16:46 Discharge instructions given to patient, family, Instructed on discharge instructions, follow up and referral plans. Demonstrated understanding of instructions, follow-up care. 16:46 Patient left the ED. bp Signatures: Dispatcher [employer] EDAbiel Moore MD MD cha Peltier, Brian, RN RN Candace Meyer MD MD ma2
--- NOTE | 2018-08-10 16:15 | EDPHYS ---
Physician Documentation [facility] Name: Laila Johnson Age: 77 yrs Sex: Female : 1940 Arrival Date: 08/10/2018 Time: 14:19 Bed 8 Private MD: ED Physician Candace Wilkerson HPI: 08/10 14:41 This 77 yrs old Female presents to ER via EMS with complaints of Fall Injury. ma2 14:41 Details of fall: The patient fell from a supine position. Onset: The symptoms/episode ma2 began/occurred suddenly, 1 day(s) ago. Associated injuries: The patient sustained neck injury. Severity of symptoms: At their worst the symptoms were moderate, in the emergency department the symptoms are unchanged. The patient has experienced similar episodes in the past. Historical: - Allergies: 14:30 No Known Allergies; bp - Home Meds: 14:30 Phenergan Oral 25 mg [Active]; metoprolol tartrate 50 mg Oral tab 1 tab 2 times per day bp [Active]; cefdinir 300 mg oral cap 1 cap every 12 hours [Active]; levothyroxine 25 mcg tab 1 tab once daily [Active]; furosemide 40 mg Oral tab 1 tab once daily [Active]; potassium chloride 10 mEq Oral cpER 1 cap once daily [Active]; morphine 30 mg Oral tab 1 tab every 4 hours [Active]; Xanax 2 mg Oral tab 1 tab 4 times per day [Active]; - PMHx: 14:30 Anemia; Cellulitis; hemachromotosis; Migraines; stroke 2013; bp - Immunization history:: Adult Immunizations up to date. - Social history:: Smoking status: Patient/guardian denies using tobacco, Patient/guardian denies using alcohol, street drugs, The patient lives with family. - Ebola Screening: : No symptoms or risks identified at this time. - Family history:: not pertinent. ROS: 14:42 Constitutional: Negative for fever, chills, and weight loss, Cardiovascular: Negative ma2 for chest pain, palpitations, and edema, Respiratory: Negative for shortness of breath, cough, wheezing, and pleuritic chest pain, Abdomen/GI: Negative for abdominal pain, nausea, diarrhea, and constipation. 14:42 Constitutional: Positive for Negative for fever, poor PO intake. 14:42 Cardiovascular: Positive for SYNCOPE, Negative for chest pain, orthopnea, palpitations, acute changes. 14:42 All other systems are negative. Exam: 14:42 Constitutional: This is a well developed, well nourished patient who is awake, alert, ma2 and in no acute distress. 14:42 Head/Face: Normocephalic, atraumatic. ENT: Nares patent. No nasal discharge, no septal abnormalities noted. Tympanic membranes are normal and external auditory canals are clear. Oropharynx with no redness, swelling, or masses, exudates, or evidence of obstruction, uvula midline. Mucous membranes moist. Chest/axilla: Normal chest wall appearance and motion. Nontender with no deformity. No lesions are appreciated. Cardiovascular: Regular rate and rhythm with a normal S1 and S2. No gallops, murmurs, or rubs. Normal PMI, no JVD. No pulse deficits. Respiratory: Lungs have equal breath sounds bilaterally, clear to auscultation and percussion. No rales, rhonchi or wheezes noted. No increased work of breathing, no retractions or nasal flaring. Abdomen/GI: Soft, non-tender, with normal bowel sounds. No distension or tympany. No guarding or rebound. No evidence of tenderness throughout. MS/ Extremity: Pulses equal, no cyanosis. Neurovascular intact. Full, normal range of motion. Neuro: Awake and alert, GCS 15, oriented to person, place, time, and situation. Cranial nerves II-XII grossly intact. Motor strength 5/5 in all extremities. Sensory grossly intact. Cerebellar exam normal. Normal gait. 14:42 Constitutional: The patient appears unkempt, PALE Vital Signs: 14:30 BP 102 / 62; Pulse 70; Resp 14; Temp 98.1; Pulse Ox 100% ; Weight 49.9 kg; Height 5 ft. bp 4 in. (162.56 cm); 15:30 BP 114 / 63; Pulse 47; Resp 16; Pulse Ox 100% ; bp 16:30 BP 123 / 67; Pulse 63; Resp 14; Pulse Ox 100% ; bp 14:30 Body Mass Index 18.88 (49.90 kg, 162.56 cm) bp MDM: 14:20 Patient medically screened. [facility] 14:42 Differential diagnosis: abrasion, closed head injury, sprain, strain. Data reviewed: ma2 vital signs, nurses notes, lab test result(s), radiologic studies. Counseling: I had a detailed discussion with the patient and/or guardian regarding: the historical points, exam findings, and any diagnostic results supporting the discharge/admit diagnosis, the presence of at least one elevated blood pressure reading (>120/80) during this emergency department visit, the need for further work-up and treatment in the hospital. Response to treatment: the patient's symptoms have markedly improved after treatment. 16:12 ED course: ekg unremarkable NSR, no long qt brugada or [id number] or cardiac ischemia, ma2 intervals wnl, rate 60 . ED course: low risk syncope per garzon sanjeev rule . 08/10 14:25 Order name: Basic Metabolic Panel; Complete Time: 15:56 ma2 08/10 14:25 Order name: CBC with Diff; Complete Time: 15:56 ma2 08/10 14:25 Order name: Ckmb; Complete Time: 15:56 ma2 08/10 14:25 Order name: CPK; Complete Time: 15:56 ma2 08/10 14:25 Order name: Hepatic Function; Complete Time: 15:56 ma2 08/10 14:25 Order name: Lipase; Complete Time: 15:56 ma2 08/10 14:25 Order name: CT Head Brain wo Cont; Complete Time: 15:15 ma2 08/10 14:25 Order name: Magnesium; Complete Time: 15:56 ma2 08/10 14:25 Order name: Protime (+inr); Complete Time: 15:32 ma2 08/10 14:25 Order name: Ptt, Activated; Complete Time: 15:32 ma2 08/10 14:25 Order name: Troponin (emerg Dept Use Only); Complete Time: 15:56 ma2 08/10 14:46 Order name: Type And Screen; Complete Time: 15:56 ss 08/10 15:30 Order name: CBC Smear Scan; Complete Time: 15:56 EDMS 08/10 14:25 Order name: EKG; Complete Time: 14:26 ma2 08/10 14:25 Order name: Cardiac monitoring; Complete Time: 14:27 ma2 08/10 14:25 Order name: EKG - Nurse/Tech; Complete Time: 14:36 ma2 08/10 14:25 Order name: IV Saline Lock; Complete Time: 15:15 nd2 08/10 14:25 Order name: Labs collected and sent; Complete Time: 15:15 [facility] 08/10 14:25 Order name: NPO; Complete Time: : nd08/10 14:25 Order name: O2 Per Protocol; Complete Time: : [facility] 08/10 14:25 Order name: O2 Sat Monitoring; Complete Time: : Administered Medications: 15:10 Drug: NS 0.9% 1000 ml Route: IV; Rate: 1 bolus; Site: right forearm; bp 16:00 Follow up: IV Status: Completed infusion; IV Intake: 1000ml bp 15:10 Drug: Ativan 1 mg Route: IVP; Site: right forearm; bp 15:43 Follow up: Response: Anxiety decreased bp Disposition: 08/10/18 16:13 Discharged to Home. Impression: Syncope and collapse. - Condition is Stable. - Discharge Instructions: Dehydration, Adult, Syncope. - Medication Reconciliation Form, Thank You Letter, Antibiotic Education, Prescription Opioid Use form. - Follow up: Private Physician; When: Tomorrow; Reason: Continuance of care. - Problem is new. - Symptoms are unchanged. Signatures: Dispatcher [employer] EDMS Abiel Perdomo MD MD cha Peltier, Brian, RN RN Candace Meyer MD MD ma2 Corrections: (The following items were deleted from the chart) 16:46 16:13 08/10/2018 16:13 Discharged to Home. Impression: Syncope and collapse. Condition bp is Stable. Forms are Medication Reconciliation Form, Thank You Letter, Antibiotic Education, Prescription Opioid Use. Follow up: Private Physician; When: Tomorrow; Reason: Continuance of care. Problem is new. Symptoms are unchanged. ma2
[2018-08-10 17:46] VITALS: TEMP 98.1; O2SAT 100
[2018-08-10 17:48] VITALS: BP 123/67
--- NOTE | 2018-08-11 07:59 | EKG ---
Test Date: 2018-08-10 Test Time: 15:00:51 Straight Knife Cutter Machine: TOI MEASUREMENT RESULTS: Intervals: Rate: 66 DE: QRSD: 120 QT: 482 QTc: 505 [place]: P: DE: QRS: 89 T: 66 INTERPRETIVE STATEMENTS: Atrial fibrillation RSR' or QR pattern in V1 suggests right ventricular conduction delay Abnormal ECG Compared to ECG 07/16/2018 13:35:41 RSR' in V1 or V2 now present Right bundle-branch block no longer present Electronically Signed On 08-11-18 07:57:11 CDT by Lee Shine
== END 2018-08-10 16:46 | disposition home or self-care (01) ==
LOC: ER 14:18
DX: R55 Syncope and collapse (principal); W19.XXXA Unspecified fall, initial encounter; Y93.9 Activity, unspecified; Y92.9 Unspecified place or not applicable
CPT/HCPCS: 96361; 93005; 85025; 80048; 36415; 86900; 83735; 86850; 82550; 85610; 86901; 80076; 85730; 84484; 82553; 83690; 70450; 96374; 99284; J7030

== ENCOUNTER 2018-10-02 12:11 | Inpatient (IN) | payer MEDICARE ==
--- NOTE | 2018-10-02 13:28 | RAD REPORT ---
EXAM DESCRIPTION: Ray Single View10/02/2018 1:17 pm CLINICAL HISTORY: Chest pain COMPARISON: July 2018 FINDINGS: The lungs appear clear of acute infiltrate. The heart is markedly enlarged IMPRESSION: No acute abnormalities displayed
[2018-10-02 14:10] LABS: Protime INR 2.1
[2018-10-02] MEDS ORDERED: NA CHLORIDE 0.9% 1,000 ML ONE (14:25)
[2018-10-02 14:36] LABS: Absolute Lymphocytes (CBC) 0.7 K/uL (0.7-4.9); Basophils % 0.8 % (0-1.3); Hematocrit 22.7 % (36.0-45.0); Lymphocytes % 13.1 % (15.3-44.8); MPV 8.4 fL (7.6-11.3); RBC Red Blood Cell Count 2.95 M/uL (3.86-4.86)
[2018-10-02 15:05] LABS: Albumin 3.6 g/dL (3.4-5.0); Bilirubin Direct 0.7 mg/dL (0-0.2); Bilirubin Total 1.1 mg/dL (0.2-1.0); Potassium 5.2 mmol/L (3.5-5.1); Protein, Total 7.1 g/dL (6.4-8.2); Troponin (Emerg Dept Use Only) 0.2 ng/mL (0.0-0.045)
--- NOTE | 2018-10-02 15:50 | ER ---
Nurse's Notes [facility] Name: Laila Johnson Age: 77 yrs Sex: Female : 1940 Arrival Date: 10/02/2018 Time: 12:13 Bed 16 Private MD: Diagnosis: Rhabdomyolysis;Severe sepsis without septic shock Presentation: 10/02 12:13 Presenting complaint: Home health nurse states "today her systolic blood pressure was aa5 99 and her sacral wound that we are treating her for is like 3 times bigger than it was yesterday". Pt's states "her lips are blue and her fingertips are blue and I noticed that yesterday". Transition of care: patient was not received from another setting of care. Onset of symptoms was October 02, 2018. Risk Assessment: Do you want to hurt yourself or someone else? Patient reports no desire to harm self or others. Care prior to arrival: None. 12:13 Method Of Arrival: Wheelchair aa5 12:13 Acuity: LUCIE 2 aa5 12:45 Initial Sepsis Screen: Does the patient meet any 2 criteria? RR > 20 per min. No. sg Patient's initial sepsis screen is negative. Does the patient have a suspected source of infection? Yes: Skin breakdown/wound. Historical: - Allergies: 12:16 No Known Allergies; aa5 - PMHx: 12:15 Anemia; Cellulitis; hemachromotosis; Migraines; stroke 2013; aa5 - Immunization history:: Flu vaccine is up to date. - Social history:: Smoking status: Patient/guardian denies using tobacco. - Ebola Screening: : No symptoms or risks identified at this time. Screenin:40 Abuse screen: Denies threats or abuse. Nutritional screening: No deficits noted. tw2 Tuberculosis screening: No symptoms or risk factors identified. Fall Risk Fall in past 12 months (25 points). Assessment: 12:30 General: Appears in no apparent distress. well groomed, well developed, well nourished, sg Behavior is calm, cooperative, appropriate for age. Pain: Denies pain. Neuro: Level of Consciousness is awake, obeys commands, confused, Oriented to person, place, Rotary Cutter Feeder are equal bilaterally Speech is normal, Facial symmetry appears normal. Cardiovascular: Patient's skin is warm and dry. Chest pain is denied. Respiratory: Airway is patent Respiratory effort is even, unlabored, Respiratory pattern is regular, symmetrical. GI: Abdomen is flat, non-distended, Bowel sounds present X 4 quads. Reports tolerance of fluids, tolerance of food, decreased appetite for several weeks. : No signs and/or symptoms were reported regarding the genitourinary system. EENT: No signs and/or symptoms were reported regarding the EENT system. Derm: Skin is fragile, is thin, Skin is dry, Skin is pale, Skin temperature is cool. Derm: Decubitus located on sacrum approximately 2.6 cm to 7.5 cm is stage III has denuded edges is draining none noted Reports home health applied a new dressing today. Musculoskeletal: No signs and/or symptoms reported regarding the musculoskeletal system. 15:00 Reassessment: Patient appears in no apparent distress at this time. Patient and/or sg family updated on plan of care and expected duration. Pain level reassessed. Patient is alert, oriented x 3, equal unlabored respirations, skin warm/dry/pink. pt reports a migraine, that is a 10/10, usually takes morphine 4 mg at home, notified, pt updated awaiting orders at this time. Vital Signs: 12:17 BP 83 / 51; Pulse 82; Resp 18 S; Temp 97.3(TE); Pulse Ox 84% on R/A; aa5 12:20 Pulse Ox 100% on 4 lpm NC; aa5 13:18 BP 94 / 51; Pulse 79; Resp 18; Temp 97.0(TE); Pulse Ox 100% on 4 lpm NC; mh5 14:59 BP 102 / 61; Pulse 75; Resp 18; Pulse Ox 90% on 4 lpm NC; sg 16:10 BP 99 / 49; Pulse 77; Resp 19 S; Temp 97.2; Pulse Ox 89% on 4 lpm NC; sg 17:05 BP 100 / 64; Pulse 77; Resp 20; Pulse Ox 89% on 4 lpm NC; sg ED Course: 12:13 Patient arrived in ED. aa5 12:13 Arm band placed on. aa5 12:17 Triage completed. aa5 12:27 Basil Payton MD is Attending Physician. gs 12:37 Stephanie Rollins, RN is Primary Nurse. aa5 12:55 HarrisonKeanu RN is Primary Nurse. sg 13:16 X-ray completed. Portable x-ray completed in exam room. Patient tolerated procedure jb2 well. 13:16 Missed attempt(s): 22 gauge in left forearm. antecubital area. mh5 13:17 Patient has correct armband on for positive identification. Placed in gown. Bed in low mh5 position. Call light in reach. Side rails up X2. Adult w/ patient. Warm blanket given. library monitor on. Pulse ox on. NIBP on. 13:18 Chest Single View XRAY In Process Unspecified. EDMS 13:45 Inserted saline lock: 24 gauge in right upper arm, using aseptic technique. aa5 13:50 Inserted saline lock: 24 gauge in left upper arm, using aseptic technique. aa5 14:39 Notified ED physician of other provider Dr. Payton. tw2 15:34 Speci-cath kit inserted, using sterile technique, 14 Fr., specimen obtained. returned sg ba urine. Patient tolerated well. 15:48 Tierney Santoro MD is Hospitalizing Provider. gs 16:30 T\\T\\S collected, blood band applied to patient. sg 16:32 EKG done, by technical staff assistant. reviewed by Basil Payton MD. dt2 17:06 No provider procedures requiring assistance completed. Patient admitted, IV remains in sg place. intact, No redness/swelling at site. Administered Medications: 14:22 Drug: NS 0.9% 1000 ml Route: IV; Rate: 1 bolus; Site: left upper arm; sg 17:05 Follow up: IV Status: Infusion continued upon admission sg 17:00 Drug: Cefepime 1 grams Route: IVPB; Rate: 200 ml/hr; Infused Over: 30 mins; Site: left sg upper arm; 17:40 Follow up: Response: No adverse reaction; IV Status: Infusion continued upon admission sg 17:39 Not Given (ordered after pt was transfered to ICU): Aspirin Chewable Tablet 324 mg PO sg once; 81 mg tablets x 4 Outcome: 15:49 Decision to Hospitalize by Provider. gs 17:35 Admitted to ICU accompanied by nurse, family with patient, via stretcher, room 3, with sg oxygen, on monitor, with chart, Report called to bedside report given to JUAN JOSÉ Estrada 17:35 Condition: stable 17:35 Instructed on the need for admit, safety practices, Demonstrated understanding of instructions, follow-up care. 17:38 Patient left the ED. sg Signatures: Dispatcher [employer] EDMS Keanu Harrison, RN RN Bossman Elliott 2 Stephanie Rollins RN RN aa5 Mellissa Cruz RN RN 2 Tatiana Kendall 5 Basil Payton MD MD Hilda Vernon dt2 Corrections: (The following items were deleted from the chart) 12:17 12:13 Presenting complaint: Home health nurse states "today her systolic blood pressure aa5 was 99 and her wound that we are treating her for is like 3 times bigger than it was yesterday" aa5 12:21 12:17 BP 83 / 51; Pulse 82bpm; Resp 18bpm; Spontaneous; Temp 97.3F Temporal; aa5 aa5 12:33 12:17 BP 83 / 51; Pulse 82bpm; Resp 18bpm; Spontaneous; Temp 97.3F Temporal; aa5 aa5 13:24 13:18 BP 94 / 51; Pulse 79bpm; Resp 18bpm; Pulse Ox 100% 4 lpm Nasal Cannula; 5 5
--- NOTE | 2018-10-02 15:50 | EDPHYS ---
Physician Documentation [facility] Name: Laila Johnson Age: 77 yrs Sex: Female : 1940 Arrival Date: 10/02/2018 Time: 12:13 Bed 16 Private MD: ED Physician Basil Payton HPI: 10/02 16:08 This 77 yrs old Female presents to ER via Wheelchair with complaints of Blood gs Pressure Problem. 16:08 GENERALLY WEEK, SENT OVER FOR HYPOTENSION AND POSSIBLE WORSENING OF SACRAL WOUND, gs CYANOSIS. Onset: The symptoms/episode began/occurred today. Severity of symptoms: At their worst the symptoms were severe in the emergency department the symptoms are unchanged. The patient has experienced similar episodes in the past, a few times. MOST RECENT MORPHINE TAKEN YEST. Historical: - Allergies: 12:16 No Known Allergies; aa5 - PMHx: 12:15 Anemia; Cellulitis; hemachromotosis; Migraines; stroke 2013; aa5 - Immunization history:: Flu vaccine is up to date. - Social history:: Smoking status: Patient/guardian denies using tobacco. - Ebola Screening: : No symptoms or risks identified at this time. ROS: 16:08 All other systems are negative. gs Exam: 16:08 Head/Face: Normocephalic, atraumatic. gs 16:08 Eyes: Pupils equal round and reactive to light, extra-ocular motions intact. Lids and lashes normal. Conjunctiva and sclera are non-icteric and not injected. Cornea within normal limits. Periorbital areas with no swelling, redness, or edema. ENT: Nares patent. No nasal discharge, no septal abnormalities noted. Tympanic membranes are normal and external auditory canals are clear. Oropharynx with no redness, swelling, or masses, exudates, or evidence of obstruction, uvula midline. Mucous membranes moist. Neck: Trachea midline, no thyromegaly or masses palpated, and no cervical lymphadenopathy. Supple, full range of motion without nuchal rigidity, or vertebral point tenderness. No Meningismus. Chest/axilla: Normal chest wall appearance and motion. Nontender with no deformity. No lesions are appreciated. 16:08 Abdomen/GI: Soft, non-tender, with normal bowel sounds. No distension or tympany. No guarding or rebound. No evidence of tenderness throughout. Back: No spinal tenderness. No costovertebral tenderness. Full range of motion. MS/ Extremity: Pulses equal, no cyanosis. Neurovascular intact. Full, normal range of motion. Neuro: Awake and alert, GCS 15, oriented to person, place, time, and situation. Cranial nerves II-XII grossly intact. Motor strength 5/5 in all extremities. Sensory grossly intact. Cerebellar exam normal. Normal gait. 16:08 Constitutional: The patient appears alert, awake, in obvious distress, severely distressed. 16:08 Eyes: Pupils: pinpoint. 16:08 Cardiovascular: Rate: normal, Rhythm: regular, Pulses: no pulse deficits are appreciated. 16:08 Respiratory: the patient does not display signs of respiratory distress, Respirations: tachypnea, that is mild, Breath sounds: decreased breath sounds, that are mild, are scattered. 16:08 Skin: Appearance: Color: cyanotic, DEEP LARGE SACRAL WOUND. Vital Signs: 12:17 BP 83 / 51; Pulse 82; Resp 18 S; Temp 97.3(TE); Pulse Ox 84% on R/A; aa5 12:20 Pulse Ox 100% on 4 lpm NC; aa5 13:18 BP 94 / 51; Pulse 79; Resp 18; Temp 97.0(TE); Pulse Ox 100% on 4 lpm NC; mh5 14:59 BP 102 / 61; Pulse 75; Resp 18; Pulse Ox 90% on 4 lpm NC; sg 16:10 BP 99 / 49; Pulse 77; Resp 19 S; Temp 97.2; Pulse Ox 89% on 4 lpm NC; sg 17:05 BP 100 / 64; Pulse 77; Resp 20; Pulse Ox 89% on 4 lpm NC; sg MDM: 12:34 Patient medically screened. 16:08 Differential Diagnosis sepsis, PNEUMONIA, ANEMIA, . Data reviewed: vital signs, nurses notes, old medical records, lab test result(s), EKG, radiologic studies. 10/02 12:37 Order name: Basic Metabolic Panel; Complete Time: 15:35 10/02 12:37 Order name: Blood Culture Adult (2) 10/02 12:37 Order name: CBC with Diff; Complete Time: 15:35 10/02 12:37 Order name: CPK; Complete Time: 15:35 10/02 12:37 Order name: Lactate; Complete Time: 15:35 10/02 12:37 Order name: LFT's; Complete Time: 15:35 10/02 12:37 Order name: Lipase; Complete Time: 15:35 10/02 12:37 Order name: Procalcitonin; Complete Time: 15:35 10/02 12:37 Order name: Protime (+inr); Complete Time: 15:35 10/02 12:37 Order name: Troponin (emerg Dept Use Only); Complete Time: 15:35 10/02 12:37 Order name: Urine Microscopic Only; Complete Time: 17:09 10/02 15:34 Order name: Urine Dipstick--Ancillary (enter results) dc 10/02 16:03 Order name: Type And Screen 10/02 16:03 Order name: ABG 10/02 12:37 Order name: Chest Single View XRAY; Complete Time: 13:37 10/02 12:37 Order name: Accucheck; Complete Time: 16:23 10/02 12:37 Order name: Cardiac monitoring; Complete Time: 13:29 10/02 12:37 Order name: IV Saline Lock - Large Bore; Complete Time: 13:29 10/02 12:37 Order name: Labs collected and sent; Complete Time: 13:29 10/02 12:37 Order name: O2 Per Protocol; Complete Time: 13:29 10/02 12:37 Order name: O2 Sat Monitoring; Complete Time: 13:29 10/02 12:37 Order name: Urine Dipstick-Ancillary (obtain specimen); Complete Time: 16:23 10/02 14:33 Order name: Straight Cath - Urine; Complete Time: 15:43 dc 10/02 16:43 Order name: Urine Dipstick-Ancillary; Complete Time: 17:09 EDMS 10/02 17:33 Order name: Type and Screen EDMS Administered Medications: 14:22 Drug: NS 0.9% 1000 ml Route: IV; Rate: 1 bolus; Site: left upper arm; sg 17:05 Follow up: IV Status: Infusion continued upon admission sg 17:00 Drug: Cefepime 1 grams Route: IVPB; Rate: 200 ml/hr; Infused Over: 30 mins; Site: left sg upper arm; 17:40 Follow up: Response: No adverse reaction; IV Status: Infusion continued upon admission sg 17:39 Not Given (ordered after pt was transfered to ICU): Aspirin Chewable Tablet 324 mg PO sg once; 81 mg tablets x 4 Disposition: 10/02/18 15:49 Hospitalization ordered by Tierney Santoro for Inpatient Admission. Preliminary diagnosis are Rhabdomyolysis, Severe sepsis without septic shock. - Bed requested for Intensive Care Unit. - Status is Inpatient Admission. sg - Condition is Stable. - Problem is new. - Symptoms have improved. UTI on Admission? No Signatures: Dispatcher [employer] EDMS Justina Orellana RN RN dw Keanu Harrison RN RN sg Tatiana Mejía ms, Audri, RN RN aa5 Basil Payton MD MD Corrections: (The following items were deleted from the chart) 16:52 15:49 Hospitalization Ordered by Tierney Santoro MD for Inpatient Admission. Preliminary dw diagnosis is Rhabdomyolysis; Severe sepsis without septic shock. Bed requested for Telemetry/MedSurg (Inpatient). Status is Inpatient Admission. Condition is Stable. Problem is new. Symptoms have improved. UTI on Admission? No. gs 17:38 16:52 10/02/2018 15:49 Hospitalization Ordered by Tierney Santoro MD for Inpatient sg Admission. Preliminary diagnosis is Rhabdomyolysis; Severe sepsis without septic shock. Bed requested for Intensive Care Unit. Status is Inpatient Admission. Condition is Stable. Problem is new. Symptoms have improved. UTI on Admission? No. dw
[2018-10-02 16:35] LABS: Urine Bacteria <20 /HPF (<20); Urine RBC NONE SEEN /HPF (NONE SEEN)
[2018-10-02 16:36] LABS: Calcium Oxalate Crystals- Ur FEW (NONE SEEN); Urine Amorphous Sediment TRACE /HPF (NONE SEEN); Urine Culture Reflex Order NOT NEEDED
[2018-10-02 16:43] LABS: Urine Blood NEGATIVE (NEG); Urine Glucose NEGATIVE (NEG); Urine Protein NEGATIVE (NEG); Urine Specific Gravity 1.015 (1.005-1.030)
[2018-10-02 16:59] LABS: Arterial Blood Carboxyhemoglob 1.4 % (0-1.5)
[2018-10-02] MEDS ORDERED: CEFEPIME 1 GM/100 ML BAG IV ONE (17:16)
[2018-10-02] MEDS ORDERED: NA CHLORIDE 0.9% 1,000 ML IV SCH (18:00)
--- NOTE | 2018-10-02 18:06 | P.HP ---
Certification for Inpatient Patient admitted to: Inpatient Practitioner: I am a practitioner with admitting privileges, knowledge of patient current condition, hospital course, and medical plan of care. Services: Services provided to patient in accordance with Admission requirements found in Title 42 Section 412.3 of the Code of Federal Regulations Patient History Date of Service: 10/02/18 Reason for admission: Hypotension/ lips discoloration History of Present Illness: This is a 77 yr old female with multiple medical problems admitted for hypotension and sacral wound along with anemia. The patient is a 77-year-old female with past medical history of atrial fibrillation, not on anticoagulation due to history of GI bleed and recurrent falls and recent episode of epistaxis, which required hospitalization as well as chronic anemia. The patient was in her usual state of health until day of admission when she was seen by her home health nurses, was found to be hypotensive, and was sent over to the ER for further evaluation. In the ED, her BP was 83/51, HR 82m RR18. Labs were remarkable for Hgb of 7.2, sodium of 120, potassium of 5.2, Cr of 2.7, troponin of 0.20 and CK of 1422. At the time of my exam, pt was alert and oriented x 2. The patient denies any chest pain. No significant shortness of breath. The patient denies any cough, fever, chills, nausea, or vomiting. Patient was admitted to the ICU for close monitor of neuro status with a sodium level of 120 and hypotension. Allergies No Known Allergies Allergy (Unverified 05/03/18 18:46) Home medications list reviewed: Yes Home Medications: Alprazolam 2 mg PO DAILY 10/03/18 Furosemide 40 mg PO DAILY 10/03/18 Levothyroxine Sodium 1 tab PO DAILY 10/03/18 Metoprolol Tartrate [Lopressor] 50 mg PO BID 10/03/18 Morphine Sulfate [Morphine Sulfate ER] 30 mg PO Q6HP PRN 10/03/18 Potassium Chloride 10 meq PO DAILY 10/03/18 - Past Medical/Surgical History Diabetic: No -: Stroke(2013) -: Chronic Back Pain -: TMJ(Severe) -: AFIB -: bacterial meningitis(september 2013) -: hemochromotosis -: anemia -: HTN -: jamil -: breast sx ( left) cyst removed -: sinus sx -: varicose vein surgery -: tubal ligation -: vein surgery 36 years old Psychosocial/ Personal History: Patient smoked 1/2ppd for 35 years. Quit 20 years ago.She lives with her husbandHas all her primary and secondary ADL'sShe denies any physical or financial abuse - Family History Mother Notes: " from surgery, when they took that thing out, got hole in esophagus " - Social History Alcohol use: Yes CD- Drugs: No Caffeine use: Yes Domestic Violence: Patient denies Review of Systems 10-point ROS is otherwise unremarkable Physical Examination - Physical Exam General: Alert, In no apparent distress, Oriented x3, Cachectic, Other (Elderly) HEENT: Atraumatic, PERRLA, Mucous membr. moist/pink, EOMI, Sclerae nonicteric Neck: Supple, 2+ carotid pulse no bruit, No LAD, Without JVD or thyroid abnormality Respiratory: Clear to auscultation bilaterally, Normal air movement Cardiovascular: Regular rate/rhythm, Normal S1 S2 Gastrointestinal: Normal bowel sounds, No tenderness Musculoskeletal: No tenderness Integumentary: Pressure ulcer (Sacral) Neurological: Normal gait, Normal speech, Normal strength at 5/5 x4 extr, Normal tone, Normal affect - Studies Laboratory Data (last 24 hrs) 10/02/18 13:50: PT 24.1 H, INR 2.10 10/02/18 13:50: WBC 5.2, Hgb 7.2 L*, Hct 22.7 L, Plt Count 216 10/02/18 13:50: Sodium 120 L, Potassium 5.2 H, BUN 77 H, Creatinine 2.97 H, Glucose 100, Total Bilirubin 1.1 H, AST 427 H*, ALT 238 H, Alkaline Phosphatase 100, Lipase 21 L Assessment and Plan - Problems (Diagnosis) (1) Hypotension Current Visit: Yes Status: Acute Qualifiers: Hypotension type: unspecified hypotension type Qualified Code(s): I95.9 - Hypotension, unspecified (2) Elevated troponin Current Visit: Yes Status: Acute (3) Elevated CK Current Visit: Yes Status: Acute (4) Acute renal failure Current Visit: Yes Status: Acute Plan: Likely secondary to volume depletion. Qualifiers: Acute renal failure type: unspecified Qualified Code(s): N17.9 - Acute kidney failure, unspecified (5) Hyponatremia Current Visit: No Status: Acute (6) Sacral decubitus ulcer Current Visit: No Status: Chronic Qualifiers: Pressure injury stage: unspecified pressure injury stage Qualified Code(s) : L89.159 - Pressure ulcer of sacral region, unspecified stage - Plan Admit to the ICU Start IVF Monitor neuro status monitor labs Hold pain medications at this time due to BP Nephrology consult ? Hx of hemochromatosis, per family. Monitor H&H 2 units PRBC transfusion Hallman catheter for urinary retention Plan: Monitor in ICU, will require more than 2 day stay. - Advance Directives Does patient have a Living Will: Yes Does patient have a Durable POA for Healthcare: Yes Critical Care: Yes Time Spent Managing Pts Care (In Minutes): 55
--- NOTE | 2018-10-02 19:15 | RAD REPORT ---
EXAM DESCRIPTION: RAD - Chest Single View - 10/02/2018 6:59 pm CLINICAL HISTORY: PICC line placement COMPARISON: Chest Single View dated 10/02/2018; Chest Single View dated 07/16/2018; Chest Single View d ated 05/08/2018; Chest Single View dated 05/06/2018 FINDINGS: Portable chest was obtained following placement of a right upper extremity PICC line. The catheter tip projects over the SVC.
[2018-10-02] MEDS ORDERED: NA CHLORIDE 0.9% 100 ML ONE ×2 (20:11→22:22)
[2018-10-02] MEDS ORDERED: FENTANYL CITR 100 MCG/2 ML IV ONE (21:56)
[2018-10-02] MEDS: NA CHLORIDE 0.9% 1,000 ML IV SCH (22:07)
[2018-10-02] MEDS ORDERED: FUROSEMIDE 40 MG/4 ML VIAL IV ONE (23:59)
[2018-10-03] MEDS ORDERED: MORPHINE 2 MG/ML SYR IV ONE ×2 (02:16→05:46)
[2018-10-03 05:16] LABS: Absolute Lymphocytes (CBC) 0.5 K/uL (0.7-4.9); Basophils % 0.5 % (0-1.3); Hematocrit 28.7 % (36.0-45.0); Lymphocytes % 8.8 % (15.3-44.8); MPV 8.7 fL (7.6-11.3); RBC Red Blood Cell Count 3.64 M/uL (3.86-4.86)
[2018-10-03 05:34] VITALS: BMI 23.1
[2018-10-03 05:39] LABS: Albumin 3.4 g/dL (3.4-5.0); Bilirubin Total 1.9 mg/dL (0.2-1.0); Potassium 4.6 mmol/L (3.5-5.1); Protein, Total 6.8 g/dL (6.4-8.2)
[2018-10-03] MEDS ORDERED: OCTREOTIDE ACETATE 100 MCG/ML ONE (06:28)
[2018-10-03 06:31] LABS: Magnesium 2.7 mg/dL (1.8-2.4); Phosphorus 4.7 mg/dL (2.5-4.9)
--- NOTE | 2018-10-03 09:37 | EKG ---
Test Date: 2018-10-02 Test Time: 16:26:23 Career Transition Specialist: RAAD MEASUREMENT RESULTS: Intervals: Rate: 76 [place]: QRSD: 138 QT: 464 QTc: 522 [place]: P: [place]: QRS: 100 T: 48 INTERPRETIVE STATEMENTS: Atrial fibrillation Right bundle branch block Abnormal ECG Compared to ECG 08/10/2018 15:00:51 Right bundle-branch block now present Electronically Signed On 10-03-18 09:35:45 CDT by Lee Shine
--- NOTE | 2018-10-03 09:53 | RAD REPORT ---
EXAM DESCRIPTION: CT - Head Brain Wo Cont - 10/03/2018 8:36 am CLINICAL HISTORY: Headache COMPARISON: July 2018 TECHNIQUE: Computed axial tomography of the head was obtained. IV contrast was not requested. All CT scans are performed using dose optimization technique as appropriate and may include automated exposure control or mA/KV adjustment according to patient size. FINDINGS: An intracranial bleed is not seen . The ventricles are normal in caliber. No extra-axial fluid collection is noted. A 3 centimeter area of cystic encephalomalacia left occipital lobe likely secondary to an old infarct ion. Small old lacunar infarct left caudate and left thalamus Mild to moderate low-density areas within periventricular, deep and subcortical white matter likely r epresent ischemic changes secondary to small vessel disease. Fluid within the sinuses/ mastoids is not seen. IMPRESSION: No acute intracranial abnormality is seen. If patient's symptoms persist MRI of the bra in would be recommended.
[2018-10-03] MEDS: NA CHLORIDE 0.9% 1,000 ML IV SCH ×3 (11:20→23:11)
--- NOTE | 2018-10-03 11:29 | P.CNS ---
Date of Consult: 10/03/18 Reason for Consult: MAGNUS, hyponatremia Requesting Physician: Tierney Santoro Chief Complaint: MAGNUS/hyponatremia History of Present Illness: 77 yof with chronic deconditioning admitted with hypotension, magnus, hyponatremia. Chronically ill (CVA hx) with up and down mentation periods (? Bipolar) and can go weeks mostly sleeping and then weeks mostly awake, recent prolonged hospitalization for sacral decub. Consult for MAGNUS (baseline normal) as well as hyponatrenia. Admx to ICU for hypotension, responding to IVF but borderline BP with workup underway. No recent med changes - no nsaids, contrast, recent steroids. Chronic anemia - many years - no firm diagnosis. Family at bedside - answering most hx questions Allergies No Known Allergies Allergy (Unverified 05/03/18 18:46) Home Medications: Alprazolam 2 mg PO DAILY 10/03/18 Furosemide 40 mg PO DAILY 10/03/18 Levothyroxine Sodium 1 tab PO DAILY 10/03/18 Metoprolol Tartrate [Lopressor] 50 mg PO BID 10/03/18 Morphine Sulfate [Morphine Sulfate ER] 30 mg PO Q6HP PRN 10/03/18 Potassium Chloride 10 meq PO DAILY 10/03/18 - Past Medical/Surgical History Diabetic: No -: Stroke(2013) -: Chronic Back Pain -: TMJ(Severe) -: AFIB -: bacterial meningitis(september 2013) -: hemochromotosis -: anemia -: HTN -: jamil -: breast sx ( left) cyst removed -: sinus sx -: varicose vein surgery -: tubal ligation -: vein surgery 36 years old Psychosocial/ Personal History: Patient smoked 1/2ppd for 35 years. Quit 20 years ago.She lives with her husbandHas all her primary and secondary ADL'sShe denies any physical or financial abuse - Family History Mother Notes: " from surgery, when they took that thing out, got hole in esophagus " - Social History Smoking Status: Former smoker Alcohol use: No CD- Drugs: No Caffeine use: No Place of Residence: Home Domestic Violence: Patient denies Review of Systems General: Weakness, Malaise Respiratory: SOB with Excertion Cardiovascular: Chest Pain Gastrointestinal: Unremarkable Genitourinary: Other (retention per staff) Physical Examination Temp Pulse Resp BP Pulse Ox 97.1 F 81 12 101/83 97 10/03/18 04:00 10/03/18 11:00 10/03/18 11:00 10/03/18 11:00 10/03/18 11:00 General: Alert, Cachectic, Disheveled HEENT: Atraumatic Respiratory: Other (decr at right base) Cardiovascular: Normal S1 S2 Gastrointestinal: Normal bowel sounds, Soft and benign Other Physical/Emotional Findings: Tangential speech Laboratory Data (last 24 hrs) 10/02/18 13:50: PT 24.1 H, INR 2.10 10/02/18 13:50: WBC 5.2, Hgb 7.2 L*, Hct 22.7 L, Plt Count 216 10/02/18 13:50: Sodium 120 L, Potassium 5.2 H, BUN 77 H, Creatinine 2.97 H, Glucose 100, Total Bilirubin 1.1 H, AST 427 H*, ALT 238 H, Alkaline Phosphatase 100, Lipase 21 L - Problems (1) Acute renal failure Current Visit: Yes Status: Acute Plan: Prerenal azotemia versus ATN from vol depletion; Cont gentle IVF NS @75ml/hr; no nsaids/contrast; renal dose all medications; strict Is/Os (2) Urine retention Current Visit: Yes Status: Acute Plan: Renal u/s - bladder u/s with pre post void ordered; straight cath; avoid any anticholigernics, other potential bladder paralytics ?morphine effect (3) Hyponatremia Current Visit: No Status: Acute Plan: Cortisol level added on to a.m. and ordered for tomorrow; tsh added on; cont ivf ; cards f/u for nstemi - poss cardiac cause; f/u sepsis workup cx Conclusions/Impression: Cont hydration for rhabdo; may also be elevated 2/2 cardiac event; workup of elevated liver enzymes per primary team; iron panel/stool occult ordered for anemia Physician Review: Patient Assessed, Agree with Above Assessment and Plan
[2018-10-03 13:58] LABS: Ferritin 20.4 ng/mL (8-388); Thyroid Stimulating Hormone 3.62 uIU/mL (0.360-3.740)
--- NOTE | 2018-10-03 19:01 | P.PN ---
Subjective Date of Service: 10/03/18 Chief Complaint: Hypotension/ lips discoloration Subjective: Improving Patient seen and examined at bedside. No family at bedside. Chart reviewed and case discussed with nursing staff. Patient with improved labs and Blood pressures. No acute events noted overnight. Complains of pain, chronic. Review of Systems 10-point ROS is otherwise unremarkable Physical Examination - Vital Signs Temperature: 97.8 F Blood Pressure: 116/61 Pulse: 96 Respirations: 15 Pulse Ox (%): 97 - Physical Exam General: Alert, In no apparent distress HEENT: Atraumatic, PERRLA, EOMI Neck: Supple, JVD not distended Respiratory: Clear to auscultation bilaterally, Normal air movement Cardiovascular: Regular rate/rhythm, Normal S1 S2 Gastrointestinal: Normal bowel sounds, No tenderness Musculoskeletal: No tenderness Integumentary: No rashes Neurological: Normal speech, Normal tone, Normal affect Lymphatics: No axilla or inguinal lymphadenopathy Other Physical/Emotional Findings: Tangential speech - Studies Microbiology Data (last 24 hrs): 10/02/18 13:45 Blood - Blood Anaerobic Blood Culture - Final Assessment And Plan - Current Problems (Diagnosis) (1) Hypotension Current Visit: Yes Status: Acute Qualifiers: Hypotension type: unspecified hypotension type Qualified Code(s): I95.9 - Hypotension, unspecified (2) Elevated troponin Current Visit: Yes Status: Acute (3) Elevated CK Current Visit: Yes Status: Acute (4) Acute renal failure Current Visit: Yes Status: Acute Plan: Likely secondary to volume depletion. Qualifiers: Acute renal failure type: unspecified Qualified Code(s): N17.9 - Acute kidney failure, unspecified (5) Hyponatremia Current Visit: No Status: Acute (6) Sacral decubitus ulcer Current Visit: No Status: Chronic Qualifiers: Pressure injury stage: unspecified pressure injury stage Qualified Code(s) : L89.159 - Pressure ulcer of sacral region, unspecified stage - Plan Transfer to the floor Continue IVF Monitor neuro status - improved monitor labs Hold pain medications at this time due to BP Nephrology consult, recommendations appreciated ? Hx of hemochromatosis, per family. Monitor H&H Status 2 units PRBC transfusion Hallman catheter for urinary retention Plan: Transfer to the floor. Pending symptomatic improvement. Physician Review: Patient Assessed, Agree with Above Assessment and Plan
[2018-10-03] MEDS: MORPHINE 2 MG/ML SYR IV PRN (22:28)
[2018-10-04 05:11] LABS: Absolute Lymphocytes (CBC) 0.4 K/uL (0.7-4.9); Basophils % 0.3 % (0-1.3); Hematocrit 26.7 % (36.0-45.0); Lymphocytes % 7.9 % (15.3-44.8); MPV 8.3 fL (7.6-11.3); RBC Red Blood Cell Count 3.39 M/uL (3.86-4.86)
[2018-10-04 05:25] LABS: Albumin 3.2 g/dL (3.4-5.0); Potassium 4.2 mmol/L (3.5-5.1); Protein, Total 6.3 g/dL (6.4-8.2)
[2018-10-04 05:36] LABS: Platelet Estimate ADEQ; Urine White Blood Cell Casts OK
[2018-10-04 05:39] LABS: Blood Morphology Comment NOTED (NOT SEEN); Burr Cells 3+; Ovalocytes 1+
[2018-10-04] MEDS: NA CHLORIDE 0.9% 1,000 ML IV SCH (10:16)
--- NOTE | 2018-10-04 12:33 | RAD REPORT ---
EXAM DESCRIPTION: US - Renal Ultrasound-Complete - 10/04/2018 10:44 am CLINICAL HISTORY: eval for obstruction Flank pain COMPARISON: <Comparisons> FINDINGS: Both kidneys are normal in size, shape and echotexture. The right kidney measures 8.0 x 4.6 x 4.2 cm. No hydronephrosis, focal mass or perinephric fluid. The left kidney measures 7.6 x 4.2 x 3.9 cm. No hydronephrosis, focal mass or perinephric fluid. The urinary bladder is incompletely distended without gross abnormality seen. IMPRESSION: Unremarkable renal sonogram.
--- NOTE | 2018-10-04 13:57 | P.PN ---
Subjective Date of Service: 10/04/18 Chief Complaint: Hypotension/ lips discoloration Subjective: Improving Patient seen and examined at bedside. No family at bedside. Chart reviewed and case discussed with nursing staff. Patient with improved labs and Blood pressures. Mentation returned to baseline No acute events noted overnight. Complains of pain, chronic. Review of Systems 10-point ROS is otherwise unremarkable Physical Examination - Vital Signs Temperature: 97.8 F Blood Pressure: 116/61 Pulse: 96 Respirations: 15 Pulse Ox (%): 97 - Physical Exam General: Alert, In no apparent distress, Oriented x3 HEENT: Atraumatic, PERRLA, EOMI Neck: Supple, JVD not distended Respiratory: Clear to auscultation bilaterally, Normal air movement Cardiovascular: Regular rate/rhythm, Normal S1 S2 Gastrointestinal: Normal bowel sounds, No tenderness Musculoskeletal: No tenderness Integumentary: No rashes Neurological: Normal speech, Normal tone, Normal affect Lymphatics: No axilla or inguinal lymphadenopathy Other Physical/Emotional Findings: Tangential speech - Studies Microbiology Data (last 24 hrs): 10/02/18 13:45 Blood - Blood Anaerobic Blood Culture - Final Assessment And Plan - Current Problems (Diagnosis) (1) Hypotension Current Visit: Yes Status: Acute Qualifiers: Hypotension type: unspecified hypotension type Qualified Code(s): I95.9 - Hypotension, unspecified (2) Elevated troponin Current Visit: Yes Status: Acute (3) Elevated CK Current Visit: Yes Status: Acute (4) Acute renal failure Current Visit: Yes Status: Acute Plan: Likely secondary to volume depletion. Qualifiers: Acute renal failure type: unspecified Qualified Code(s): N17.9 - Acute kidney failure, unspecified (5) Hyponatremia Current Visit: No Status: Acute (6) Sacral decubitus ulcer Current Visit: No Status: Chronic Qualifiers: Pressure injury stage: unspecified pressure injury stage Qualified Code(s) : L89.159 - Pressure ulcer of sacral region, unspecified stage - Plan Labs improving, clinically/mentation back to baseline Continue IVF Monitor neuro status - resolved, back to baseline now monitor labs Hold pain medications at this time due to BP Nephrology consult, recommendations appreciated ? Hx of hemochromatosis, per family. Monitor H&H Status 2 units PRBC transfusion Hallman catheter for urinary retention Plan: Pending symptomatic improvement. Possible discharge to home in the next 24 hr
[2018-10-04] MEDS ORDERED: LORazepam 2 MG/ML VIAL IV ONE (22:29)
[2018-10-05] MEDS: NA CHLORIDE 0.9% 1,000 ML IV SCH ×2 (00:20→15:49)
[2018-10-05 05:55] LABS: Albumin 2.8 g/dL (3.4-5.0); Bilirubin Total 0.6 mg/dL (0.2-1.0); Potassium 4.2 mmol/L (3.5-5.1); Protein, Total 6.1 g/dL (6.4-8.2)
[2018-10-05 06:02] LABS: Absolute Lymphocytes (CBC) 0.4 K/uL (0.7-4.9); Basophils % 0.3 % (0-1.3); Hematocrit 26.7 % (36.0-45.0); Lymphocytes % 11.1 % (15.3-44.8); MPV 8.3 fL (7.6-11.3); RBC Red Blood Cell Count 3.38 M/uL (3.86-4.86)
[2018-10-05] MEDS: MORPHINE 2 MG/ML SYR IV PRN (08:32)
[2018-10-05] MEDS ORDERED: VANCOMYCIN 1.25 GM in NA CHLORIDE 0.9% 250 ML IVPB ONE (18:00)
--- NOTE | 2018-10-05 18:49 | P.PN ---
Subjective Date of Service: 10/05/18 Chief Complaint: Hypotension/ lips discoloration Subjective: Improving Patient seen and examined at bedside. No family at bedside. Chart reviewed and case discussed with nursing staff. Patient with improved labs and Blood pressures. Mentation returned to baseline No acute events noted overnight. Complains of pain, chronic. Review of Systems 10-point ROS is otherwise unremarkable Physical Examination - Vital Signs Temperature: 98.5 F Blood Pressure: 140/82 Pulse: 111 Respirations: 20 Pulse Ox (%): 98 - Physical Exam General: Alert, In no apparent distress HEENT: Atraumatic, PERRLA, EOMI Neck: Supple, JVD not distended Respiratory: Clear to auscultation bilaterally, Normal air movement Cardiovascular: Regular rate/rhythm, Normal S1 S2 Gastrointestinal: Normal bowel sounds, No tenderness Musculoskeletal: No tenderness Integumentary: No rashes Neurological: Normal speech, Normal tone, Normal affect Lymphatics: No axilla or inguinal lymphadenopathy Other Physical/Emotional Findings: Tangential speech - Studies Microbiology Data (last 24 hrs): 10/02/18 13:45 Blood - Blood Aerobic Blood Culture - Final Meth Resistant Staph Aureus 10/02/18 13:45 Blood - Blood Gram Stain - Final 10/02/18 13:45 Blood - Blood Anaerobic Blood Culture - Final Assessment And Plan - Current Problems (Diagnosis) (1) Hypotension Current Visit: Yes Status: Acute Qualifiers: Hypotension type: unspecified hypotension type Qualified Code(s): I95.9 - Hypotension, unspecified (2) Elevated troponin Current Visit: Yes Status: Acute (3) Elevated CK Current Visit: Yes Status: Acute (4) Acute renal failure Current Visit: Yes Status: Acute Plan: Likely secondary to volume depletion. Qualifiers: Acute renal failure type: unspecified Qualified Code(s): N17.9 - Acute kidney failure, unspecified (5) Hyponatremia Current Visit: No Status: Acute (6) Sacral decubitus ulcer Current Visit: No Status: Chronic Qualifiers: Pressure injury stage: unspecified pressure injury stage Qualified Code(s) : L89.159 - Pressure ulcer of sacral region, unspecified stage - Plan Labs improving, clinically/mentation back to baseline Monitor neuro status - resolved, back to baseline now monitor labs Restarted home medication. Nephrology consult, recommendations appreciated ? Hx of hemochromatosis, per family. Monitor H&H, stable at this time. Status 2 units PRBC transfusion Hallman catheter for urinary retention -remove Hallman, monitor urine output. Bacteremia with MRSA: Patient already has a PICC line in place, and has a home health company. Social work consulted for IV vancomycin 1 g daily x 14 days. Plan: Possible discharge to home in the next 24 hr once IV antibiotics set up for home. Physician Review: Patient Assessed, Agree with Above Assessment and Plan
[2018-10-05] MEDS ORDERED: ACETAMINOPHEN 325 MG TABLET PO PRN (20:48)
[2018-10-05] MEDS: ENSURE ENLIVE 237 ML CAN PO SCH (21:00)
[2018-10-05] MEDS: JUVEN PACKET PO SCH (21:00)
--- NOTE | 2018-10-05 21:03 | P.PN ---
Date of Service: 10/05/18 Vital Signs Temp Pulse Resp BP Pulse Ox 98.5 F 111 H 20 140/82 98 10/05/18 18:49 10/05/18 18:49 10/05/18 18:49 10/05/18 18:49 10/05/18 18:49 Medications Acetaminophen (Tylenol -Tablet) 325 mg PO Q6H PRN PRN Reason: Pain scale 2-4 (Mild) Stop: 11/04/18 20:49 Furosemide (Lasix) 40 mg PO DAILY PAUL Stop: 11/05/18 09:01 Sodium Chloride (Ns 1000 Ml Ivbag) 1,000 mls @ 75 mls/hr IV .[id number] PAUL Stop: 11/01/18 21:01 Last Admin: 10/05/18 15:49 Dose: 1,000 mls Vancomycin HCl (Vancomycin 1 Gm/250 Ml Ns Ivpb) 1 gm in 250 mls @ 166.667 mls/ hr IVPB Q24H PAUL Stop: 11/05/18 18:01 L-Arginine/L-Glutamine/HMB (Deo) 1 pkt PO BID PAUL Stop: 11/04/18 21:01 Levothyroxine Sodium (Synthroid) 0.025 mg PO DAILYAC [facility] Stop: 11/05/18 06:31 Metoprolol Tartrate (Lopressor) 50 mg PO BID PAUL Stop: 11/04/18 21:01 Morphine Sulfate (Morphine Sulfate) 2 mg IV Q4H PRN PRN Reason: Pain scale 5-7 (Moderate) Stop: 11/02/18 22:17 Last Admin: 10/05/18 08:32 Dose: 2 mg Nutritional Formula (Ensure Enlive) 237 ml PO BID PAUL Stop: 11/04/18 21:01 Potassium Chloride (Klor-Con 10 Meq Tab) 10 meq PO DAILY PAUL Stop: 11/05/18 09:01 Sodium Chloride (Normal Saline Flush) 10 ml IV BID PAUL Stop: 11/01/18 21:01 Last Admin: 10/05/18 08:32 Dose: 10 ml Tramadol HCl (Ultram) 50 mg PO TID PRN PRN Reason: PAIN Stop: 11/04/18 20:48 Microbiology Results 10/02/18 13:45 Blood - Blood Aerobic Blood Culture - Final Meth Resistant Staph Aureus 10/02/18 13:45 Blood - Blood Gram Stain - Final 10/02/18 13:45 Blood - Blood Anaerobic Blood Culture - Final 10/02/18 14:00 Blood - Blood Aerobic Blood Culture - Preliminary No growth in 24 hours. 10/02/18 14:00 Blood - Blood Anaerobic Blood Culture - Preliminary No growth in 24 hours. Assessment/ Plan: Nephrology Feeling better. Weakness. Fatigue. Worked well with PT this morning. CPS stable without CP or SOB. No acute events overnight. Vitals, medications, blood work and imaging reviewed in the chart. NAD. MMM. Neck supple. CTA. RRR. Soft Abd. No C/C/E. No rash. AAO. Normal Speech. A/ MAGNUS, resolved. Hyponatremia, improving. HTN. IFG. Acute hepatitis, improving. Anemia in chronic illness, microcytic. sp PRBC. P/ Continue current POC and Medications. AM labs. Daily weight. No NSAIDs. Continue gentle IVF. Continue vancomycin for MRSA bacteremia. Voiding trial today for hx urinary retention.
[2018-10-05] MEDS: METOPROLOL TAR 50 MG TAB PO SCH (21:07)
[2018-10-05] MEDS: TRAMADOL HCL 50 MG TAB PO PRN (21:31)
[2018-10-05] MEDS ORDERED: FUROSEMIDE 40 MG/4 ML VIAL IV ONE (23:54)
--- NOTE | 2018-10-06 00:10 | P.PN ---
Subjective Date of Service: 10/06/18 Chief Complaint: Hypotension/ lips discoloration Subjective: Other (Call to the room as nurse reported some SOB. RT and RN at bedside) Physical Examination - Vital Signs Temperature: 97.8 F Blood Pressure: 141/78 Pulse: 132 Respirations: 20 Pulse Ox (%): 99 - Physical Exam General: Alert, In no apparent distress, Cooperative HEENT: Atraumatic Neck: Supple Respiratory: Diminished (bilaterally), Crackles/rales (bilaterally) Cardiovascular: Irregular heart rate/rhythm (a fib rate controlled. ) Integumentary: Other (mild pitting edema) Neurological: Abnormal affect (patient reports some anxiety) Other Physical/Emotional Findings: Tangential speech - Studies Microbiology Data (last 24 hrs): 10/02/18 13:45 Blood - Blood Aerobic Blood Culture - Final Meth Resistant Staph Aureus 10/02/18 13:45 Blood - Blood Gram Stain - Final 10/02/18 13:45 Blood - Blood Anaerobic Blood Culture - Final Assessment & Plan Discharge Plan: Long Term Plan to discharge in: 48 Hours - Code Status/Comfort Care Code Status Assessed: Yes (patient is full code) Code Status: Full Code Physician Review Additional Text: Impression: Shortness of breath suspect acute on chronic CHF, likely diastolic Bacteremia with blood culture positive for MRSA Acute on chronic renal disease with hypotension/dehydration Chronic atrial fibrillation not on chronic anticoagulation CAD with noted elevated troponin likely cardiac ischemia Anxiety Elevated liver function etiology unknown Chronic anemia likely of chronic disease Plan: Patient appears overloaded. She has not been given her Lasix today. Will Hep lock IV. Will given 40 mg IV Lasix now. Will check CXR. Will check ABG. Will maintain sats above 90%. Will continue to monitor closely. Case discussed with RT and RN. Will continue to reassess. Will place Cardiology evaluation for the am to assess CHF. Continue Antibiotics. Hold Anxiety medication at this time. Patient would benefit with SNF placement. Advance directives addressed. She is full code. Will start DVT prophylaxis-Lovenox. She is not on chronic anticoagulation due to risk of bleeding and falls. Will monitor Anemia. Recheck LFT in the am. Nephrology is also on the case. Time Spent Managing Pts Care (In Minutes): 55
[2018-10-06 00:25] LABS: Arterial Blood Carboxyhemoglob 1.5 % (0-1.5); Blood O2 Saturation 90.7 % (92-98.5)
[2018-10-06] MEDS ORDERED: IPRATROPIUM BROM 0.5MG/2.5ML NEB PRN (03:18)
[2018-10-06 04:56] LABS: Absolute Lymphocytes (CBC) 0.5 K/uL (0.7-4.9); Basophils % 0.3 % (0-1.3); Hematocrit 27.5 % (36.0-45.0); MPV 8.5 fL (7.6-11.3); RBC Red Blood Cell Count 3.43 M/uL (3.86-4.86)
[2018-10-06 05:10] LABS: Albumin 3.2 g/dL (3.4-5.0); Bilirubin Total 0.6 mg/dL (0.2-1.0); Magnesium 1.6 mg/dL (1.8-2.4); Potassium 4.3 mmol/L (3.5-5.1); Protein, Total 6.4 g/dL (6.4-8.2)
[2018-10-06] MEDS ORDERED: MAGNESIUM SULFATE 1 gm IVPB 1 GM/100 ML BAG IV ONE (05:32)
[2018-10-06] MEDS: LEVOTHYROXINE SOD 0.025 MG TAB PO SCH (06:07)
--- NOTE | 2018-10-06 08:10 | RAD REPORT ---
EXAM DESCRIPTION: RAD - Chest Single View - 10/06/2018 12:25 am CLINICAL HISTORY: Dyspnea, Fluid overload Chest pain. COMPARISON: Chest Single View dated 10/02/2018; Chest Single View dated 10/02/2018; Chest Single View dated 07/16/2018; Chest Single View dated 05/08/2018 FINDINGS: Portable technique limits examination quality. Moderate right basilar lung opacity with pleural effusion is noted. Trace left pleural effusion is al so seen. Mild interstitial pulmonary edema is present. The heart is significantly enlarged with PICC line noted.
[2018-10-06] MEDS: ENSURE ENLIVE 237 ML CAN PO SCH ×2 (09:08→21:02)
[2018-10-06] MEDS: POTASSIUM CL SA 10 MEQ TAB PO SCH (09:08)
[2018-10-06] MEDS: JUVEN PACKET PO SCH ×2 (09:08→21:02)
[2018-10-06] MEDS: FUROSEMIDE 40 MG TABLET PO SCH (09:08)
[2018-10-06] MEDS: METOPROLOL TAR 50 MG TAB PO SCH ×2 (09:08→21:01)
[2018-10-06] MEDS: VANCOMYCIN/NS 1 gm 1 GM/250 ML BAG IVPB SCH (17:51)
[2018-10-06] MEDS: ENOXAPARIN 30 MG/0.3 ML SQ SCH (17:52)
[2018-10-07] MEDS: TRAMADOL HCL 50 MG TAB PO PRN ×2 (00:40→11:02)
[2018-10-07 05:29] LABS: Absolute Lymphocytes (CBC) 0.7 K/uL (0.7-4.9); Basophils % 0.6 % (0-1.3); Hematocrit 27.9 % (36.0-45.0); Lymphocytes % 12.8 % (15.3-44.8); MPV 8.1 fL (7.6-11.3); RBC Red Blood Cell Count 3.47 M/uL (3.86-4.86)
[2018-10-07 05:45] LABS: Albumin 3.2 g/dL (3.4-5.0); Bilirubin Total 0.6 mg/dL (0.2-1.0); Magnesium 1.9 mg/dL (1.8-2.4); Potassium 4.2 mmol/L (3.5-5.1); Protein, Total 6.4 g/dL (6.4-8.2)
[2018-10-07] MEDS: LEVOTHYROXINE SOD 0.025 MG TAB PO SCH (06:24)
[2018-10-07] MEDS: POTASSIUM CL SA 10 MEQ TAB PO SCH (08:55)
[2018-10-07] MEDS: METOPROLOL TAR 50 MG TAB PO SCH ×2 (08:55→21:24)
[2018-10-07] MEDS: FUROSEMIDE 40 MG TABLET PO SCH (08:56)
[2018-10-07] MEDS: JUVEN PACKET PO SCH ×2 (08:56→21:24)
[2018-10-07] MEDS: ENSURE ENLIVE 237 ML CAN PO SCH ×2 (08:57→21:24)
--- NOTE | 2018-10-07 09:11 | CON ---
Date of Consultation: 10/06/[address] Kaur's service on 10/02/2018. I saw the patient on 10/06/2018. Reason For Consultation: Congestive heart failure. History Of Present Illness: Ms. Johnson is 77, has a history of hypertension, diastolic congestive hea rt failure, hypothyroidism, anxiety, history of stroke and migraine. She has also history of sacral wounds. Came in with weakness and hypotension. She was also hyponatremic. Denied any chest pain. Denied any palpitation or syncope. She was noted to also be in atrial fibrillation. Past Medical History: As stated above. Allergies: NONE. Review of Systems: Negative. Social History: Negative. Family History: Noncontributory. Medications: At home include Xanax, Lasix, metoprolol, and Synthroid. Physical Examination: General: She was in atrial fibrillation, rate controlled. Vital Signs: Stable, afebrile. HEENT: Negative. Neck: Supple with no bruit. Chest: Revealed some rales at both bases. Cardiac: Revealed atrial fibrillation. Abdomen: Benign. Extremities: Revealed 1+ edema. Pulses were present distally bilaterally. Skin: Dry and intact. Neurologic: She was nonfocal. Diagnostic Data: EKG showed atrial fibrillation. The blood gases; PO2 of 74, pCO2 of 59, pH 7.22. Creatinine is 0.79. Hemoglobin of 9.0. Troponin is negative. Echocardiogram in April of 2018, s howed normal ejection fraction with decreased left ventricular compliance. Her AST is 110, ALT 199. Impression And Plan: 1.Acute on chronic diastolic congestive heart failure. 2.Hypertension. 3.Hypothyroidism. 4.Anxiety. 5.History of stroke. 6.Migraine headaches. 7.Sacral wound. 8.Mild hypotension. 9.Anemia. 10.CO2 retention. I think as far as Ms. Johnson is concerned, she has a history of hemochromatosis with elevated liver fu nction enzymes, she has anemia. I would be hesitant to put her on anticoagulants with her anemia and hemochromatosis with the new anticoagulants. I think aspirin may be a better choice. We will watch her atrial fibrillation, control her rates with low-dose beta blockers, which she is on already. If she does not convert, we may consider Betapace or cardioversion down the line. We will continue to follow her. ASHLEY/SUSAN Voice ID: [id number] Report ID: [id number]
[2018-10-07] MEDS: ASPIRIN EC 81 MG TAB PO SCH (11:02)
--- NOTE | 2018-10-07 11:41 | P.PN ---
Subjective Date of Service: 10/07/18 Chief Complaint: Hypotension/ lips discoloration Subjective: Improving Patient seen and examined chart reviewed and case discussed with RN. Patient still having difficulty breathing was started on Lasix overnight for CHF. Family at bedside. Treatment plan explained all questions answered. Review of Systems 10-point ROS is otherwise unremarkable Respiratory: As per HPI Physical Examination - Vital Signs Temperature: 97.9 F Blood Pressure: 158/85 Pulse: 97 Respirations: 26 Pulse Ox (%): 97 - Physical Exam General: Alert, Oriented x3, Mild distress (Respiratory distress), Other (Frail elderly female) HEENT: Atraumatic, PERRLA, EOMI Neck: Supple, JVD not distended Respiratory: Diminished, Crackles/rales Cardiovascular: Normal pulses, Normal S1 S2, Irregular heart rate/rhythm Gastrointestinal: Normal bowel sounds, Soft and benign, Non-distended, No tenderness Musculoskeletal: No tenderness Integumentary: No rashes, No erythema Neurological: Normal speech, Normal strength at 5/5 x4 extr, Normal tone, Cranial nerves 3-12 intact, Normal affect Other Physical/Emotional Findings: Tangential speech - Studies Laboratory Last Values WBC 5.8 K/uL (4.3-10.9) 10/07/18 05:05 RBC 3.47 M/uL (3.86-4.86) L 10/07/18 05:05 Hgb 8.9 g/dL (12.0-15.0) L 10/07/18 05:05 Hct 27.9 % (36.0-45.0) L 10/07/18 05:05 MCV 80.5 fL (80-100) 10/07/18 05:05 MCH 25.8 pg (27.0-35.0) L 10/07/18 05:05 MCHC 32.1 g/dL (32.0-36.0) 10/07/18 05:05 RDW 18.6 % (12.1-15.2) H 10/07/18 05:05 Plt Count 142 K/uL (152-406) L 10/07/18 05:05 MPV 8.1 fL (7.6-11.3) 10/07/18 05:05 Neutrophils % 70.7 % (41.7-73.7) 10/07/18 05:05 Lymphocytes % 12.8 % (15.3-44.8) L 10/07/18 05:05 Monocytes % 12.5 % (3.3-12.3) H 10/07/18 05:05 Eosinophils % 3.4 % (0-4.4) 10/07/18 05:05 Basophils % 0.6 % (0-1.3) 10/07/18 05:05 Absolute Neutrophils 4.1 K/uL (1.8-8.0) 10/07/18 05:05 Absolute Lymphocytes 0.7 K/uL (0.7-4.9) 10/07/18 05:05 Absolute Monocytes 0.7 K/uL (0.1-1.3) 10/07/18 05:05 Absolute Eosinophils 0.2 K/uL (0-0.5) 10/07/18 05:05 Absolute Basophils 0.0 K/uL (0-0.5) 10/07/18 05:05 Ovalocytes 1+ 10/04/18 04:35 Bennett Cells 3+ 10/04/18 04:35 Schistocytes 2+ 10/04/18 04:35 Morphology Comment Noted (NOT SEEN) 10/04/18 04:35 PT 24.1 SECONDS (9.5-12.5) H 10/02/18 13:50 INR 2.10 10/02/18 13:50 pH 7.22 (7.35-7.45) L 10/06/18 00:00 pCO2 58.8 mmHG (35-45) H 10/06/18 00:00 pO2 74.4 mmHG (75-100) L 10/06/18 00:00 HCO3 23.1 mmol/L (22-28) 10/06/18 00:00 Base Excess -3.6 mmol/L 10/06/18 00:00 Oxyhemoglobin 89.0 % (94-97) L 10/06/18 00:00 ABG O2 Sat (Measured) 90.7 % (92-98.5) L 10/06/18 00:00 ABG Carboxyhemoglobin 1.5 % (0-1.5) 10/06/18 00:00 ABG Methemoglobin 0.4 % (0-1.5) 10/06/18 00:00 Other Total Hgb 9.1 g/dl (12-18) L 10/06/18 00:00 Inspired O2 32.0 % 10/06/18 00:00 Sodium 135 mmol/L (136-145) L 10/07/18 05:05 Potassium 4.2 mmol/L (3.5-5.1) 10/07/18 05:05 Chloride 100 mmol/L (98-107) 10/07/18 05:05 Carbon Dioxide 31 mmol/L (21-32) 10/07/18 05:05 BUN 24 mg/dL (7-18) H 10/07/18 05:05 Creatinine 0.97 mg/dL (0.55-1.3) 10/07/18 05:05 Estimated GFR 56 mL/min (=/>90) L 10/07/18 05:05 Glucose 110 mg/dL (74-106) H 10/07/18 05:05 Lactic Acid 1.4 mmol/L (0.4-2.0) 10/02/18 13:50 Calcium 8.1 mg/dL (8.5-10.1) L 10/07/18 05:05 Phosphorus 4.7 mg/dL (2.5-4.9) 10/03/18 06:05 Magnesium 1.9 mg/dL (1.8-2.4) 10/07/18 05:05 Iron 89.0 ug/dL (50-170) 10/03/18 Unknown TIBC 321 ug/dL (250-460) 10/03/18 Unknown Transferrin 229 mg/dL (200-360) 10/03/18 Unknown Transferrin % Sat 27.7 % (20.0-50.0) 10/03/18 Unknown Ferritin 20.4 ng/mL (8-388) 10/03/18 Unknown Total Bilirubin 0.6 mg/dL (0.2-1.0) 10/07/18 05:05 Direct Bilirubin 0.7 mg/dL (0-0.2) H 10/02/18 13:50 AST 65 U/L (15-37) H 10/07/18 05:05 ALT 158 U/L (12-78) H 10/07/18 05:05 Alkaline Phosphatase 87 U/L (45-117) 10/07/18 05:05 Creatine Kinase 1422 U/L (26-192) H* 10/02/18 13:50 Rapid Troponin I 0.20 ng/mL (0.0-0.045) H 10/02/18 13:50 Troponin I 0.14 ng/mL (0.0-0.045) H 10/03/18 06:05 Serum Total Protein 6.4 g/dL (6.4-8.2) 10/07/18 05:05 Albumin 3.2 g/dL (3.4-5.0) L 10/07/18 05:05 Globulin 3.2 g/dL (2.3-3.5) 10/07/18 05:05 Albumin/Globulin Ratio 1.0 (1.1-1.8) L 10/07/18 05:05 Lipase 21 U/L (73-393) L 10/02/18 13:50 Procalcitonin 0.58 ng/mL (<0.50) H 10/02/18 13:50 TSH 3.620 uIU/mL (0.360-3.740) 10/03/18 Unknown Free T4 1.24 ng/dL (0.76-1.46) 10/03/18 Unknown Cortisol 19.33 ug/dL (SEE COMMENT) 10/03/18 13:42 Urine pH 5.0 (5.0-7.0) 10/02/18 16:24 Ur Specific [place] 1.015 (1.005-1.030) 10/02/18 16:24 Urine Ketones Negative (NEG) 10/02/18 16:24 Urine Blood Negative (NEG) 10/02/18 16:24 Urine Nitrite Negative (NEG) 10/02/18 16:24 Ur Leukocyte Esterase Negative (NEG) 10/02/18 16:24 Urine RBC None seen /HPF (NONE SEEN) 10/02/18 15:30 Urine WBC None seen /HPF (<5) 10/02/18 15:30 Ur Squamous Epith Cells <5 /HPF (NONE SEEN) 10/02/18 15:30 Calcium Oxalate Crystal Few (NONE SEEN) 10/02/18 15:30 Amorphous Sediment Trace /HPF (NONE SEEN) 10/02/18 15:30 Urine Bacteria <20 /HPF (<20) 10/02/18 15:30 Urine Culture Reflexed Not needed 10/02/18 15:30 Urine Glucose Negative (NEG) 10/02/18 16:24 Urine Total Protein Negative (NEG) 10/02/18 16:24 ABO/Rh A POSITIVE 10/02/18 16:30 Antibody Screen Negative 10/02/18 16:30 Crossmatch See Detail 10/02/18 16:30 Microbiology Data (last 24 hrs): MRSA blood cultures Imagings Data: EXAM DESCRIPTION: RAD - Chest Single View - 10/06/2018 12:25 am CLINICAL HISTORY: Dyspnea, Fluid overload Chest pain. COMPARISON: Chest Single View dated 10/02/2018; Chest Single View dated 2018; Chest Single View dated 07/16/2018; Chest Single View dated 05/08/2018 FINDINGS: Portable technique limits examination quality. Moderate right basilar lung opacity with pleural effusion is noted. Trace left pleural effusion is also seen. Mild interstitial pulmonary edema is present. The heart is significantly enlarged with PICC line noted. Medications List Reviewed: Yes Assessment And Plan - Current Problems (Diagnosis) (1) Bacteremia Current Visit: Yes Status: Acute (2) Chronic diastolic (congestive) heart failure Current Visit: Yes Status: Acute (3) Elevated CK Current Visit: Yes Status: Acute (4) Elevated troponin Current Visit: Yes Status: Acute (5) Hypotension Current Visit: Yes Status: Acute Qualifiers: Hypotension type: unspecified hypotension type Qualified Code(s): I95.9 - Hypotension, unspecified (6) Atrial fibrillation Current Visit: No Status: Chronic Qualifiers: Atrial fibrillation type: chronic Qualified Code(s): I48.2 - Chronic atrial fibrillation (7) Hemochromatosis Current Visit: No Status: Chronic Qualifiers: Hemochromatosis type: unspecified Qualified Code(s): E83.119 - Hemochromatosis, unspecified (8) Sacral decubitus ulcer Current Visit: No Status: Chronic Qualifiers: Pressure injury stage: unspecified pressure injury stage Qualified Code(s) : L89.159 - Pressure ulcer of sacral region, unspecified stage - Plan Patient's respiratory distress is improving with Lasix. Likely secondary to CHF. Continue Lasix. Appreciate cardiology input. Room air saturations are 87%. Will need to be set up with home O2. Continue IV antibiotics for bacteremia secondary to MRSA secondary to pneumonia. PICC line is in place and IV antibiotics have been set up. She will be on vancomycin for 2 weeks. Electrolytes improved. As has the kidney function. Will continue to monitor creatinine and potassium levels The liver enzymes are proving trending down. Unclear etiology Discharge Plan: Home - Code Status/Comfort Care Code Status Assessed: Yes Physician Review: Patient Assessed, Agree with Above Assessment and Plan Physician Review Additional Text: Impression: Shortness of breath suspect acute on chronic CHF, likely diastolic Bacteremia with blood culture positive for MRSA Acute on chronic renal disease with hypotension/dehydration Chronic atrial fibrillation not on chronic anticoagulation CAD with noted elevated troponin likely cardiac ischemia Anxiety Elevated liver function etiology unknown Chronic anemia likely of chronic disease Plan: Patient appears overloaded. She has not been given her Lasix today. Will Hep lock IV. Will given 40 mg IV Lasix now. Will check CXR. Will check ABG. Will maintain sats above 90%. Will continue to monitor closely. Case discussed with RT and RN. Will continue to reassess. Will place Cardiology evaluation for the am to assess CHF. Continue Antibiotics. Hold Anxiety medication at this time. Patient would benefit with SNF placement. Advance directives addressed. She is full code. Will start DVT prophylaxis-Lovenox. She is not on chronic anticoagulation due to risk of bleeding and falls. Will monitor Anemia. Recheck LFT in the am. Nephrology is also on the case.
[2018-10-07] MEDS: ENOXAPARIN 30 MG/0.3 ML SQ SCH (17:16)
[2018-10-07] MEDS: VANCOMYCIN/NS 1 gm 1 GM/250 ML BAG IVPB SCH (21:23)
--- NOTE | 2018-10-08 02:04 | DS ---
Date of Service: 10/07/2018 Consultants: Dr. Dowling with Nephrology, Dr. Shine with Cardiology, Dr. Anthony also with Nephrology. Admitting Diagnoses: 1. Acute hypotension. 2. Elevated troponin level. 3. Elevated CK level. 4. Acute kidney injury. 5. Hyponatremia. 6. Sacral decubitus ulcer, present on admission. Discharge Diagnoses: 1. Bacteremia secondary to methicillin-resistant Staphylococcus aureus. Will continue with IV antibiotics with vancomycin for a total of 2 weeks. 2. Chronic diastolic congestive heart failure, stable. 3. Elevated CK level, rhabdomyolysis, resolved. 4. Elevated troponin level. 5. Acute hypotension, resolved. 6. Atrial fibrillation, chronic. Continue with aspirin for anticoagulation. 7. Hemochromatosis, chronic. 8. Sacral decubitus ulcer, present on admission. Continue with offloading and wound care. 9. Acute respiratory distress with hypoxia. 10. Elevated liver enzymes, improving. 11. Hypomagnesemia, corrected. Hospital Course: Patient is a 77-year-old female who was admitted to the hospital with hypotension. Patient was also found to have sacral wound along with anemia. Patient was started on IV fluids. She had some mild electrolyte disturbances, which were corrected. Had elevated troponin level and CK level of 1422. Her troponin level was likely elevated due to hypotension and demand mismatch due to acute kidney injury and rhabdomyolysis. She did not complain of any chest pain. Her blood pressure improved with treatment. Her kidney function normalized. She did develop some elevated liver enzymes, which also improved with treatment. CK level also normalized with IV fluid treatment. Her rhabdomyolysis resolved. Patient was found to be bacteremic with MRSA. Her head CT scan did not show any acute changes. However, she does have some level of mild cognitive impairment, has memory problems. Her x-ray was negative. Overall, patient did well. She was seen by Nephrology. Patient's IV antibiotics were then set up with home health care infusion company. PICC line was also placed. Patient was then discharged to home with home health with IV infusion. Her primary care physician, Dr. Lawton, will be following the labs. Vancomycin to be renally dosed. Patient was hypoxic, required supplemental oxygenation and this was secondary to CHF. Dr. Shine with Cardiology was consulted and he recommended aspirin alone for her AFib and patient is not a candidate for full-dose anticoagulation due to her hemochromatosis and history of GI bleed and anemia. Her rate was controlled well with beta-blockers. Medications: As per medication reconciliation list. Diet: Low sodium, 1500 mL fluid restriction. Activity: Fall precautions. Followup: Follow up with primary care physician in 2 to 3 days. Discharge Instructions: Return to ER for worsening condition. Patient is to have repeat blood cultures after antibiotics are completed. PICC line to be removed once IV antibiotics are completed. Physical Examination: General: Awake, alert, oriented. No acute distress. Elderly female. CV: S1, S2. Irregularly irregular. Peripheral pulses are present. Respiratory: Diminished breath sounds. No wheezing. Gastrointestinal: Abdomen is soft, nontender, nondistended. Positive bowel sounds. Extremities: No clubbing, cyanosis, or edema. Neuro: Nonfocal. Time Spent: Total time spent discharging the patient was 41 minutes. /SUSAN Voice ID: [id number] Report ID: [id number]
[2018-10-08] MEDS ORDERED: LORazepam 2 MG/ML VIAL IV PRN (02:50)
[2018-10-08 05:52] LABS: Absolute Lymphocytes (CBC) 1.1 K/uL (0.7-4.9); Hematocrit 29.3 % (36.0-45.0); Lymphocytes % 20.4 % (15.3-44.8); MPV 9.2 fL (7.6-11.3); RBC Red Blood Cell Count 3.67 M/uL (3.86-4.86)
[2018-10-08 06:12] LABS: Albumin 3.2 g/dL (3.4-5.0); Bilirubin Total 0.7 mg/dL (0.2-1.0); Magnesium 1.8 mg/dL (1.8-2.4); Potassium 4.2 mmol/L (3.5-5.1); Protein, Total 6.7 g/dL (6.4-8.2)
[2018-10-08] MEDS: LEVOTHYROXINE SOD 0.025 MG TAB PO SCH (07:33)
[2018-10-08] MEDS: FUROSEMIDE 40 MG TABLET PO SCH (09:25)
[2018-10-08] MEDS: ASPIRIN EC 81 MG TAB PO SCH (09:25)
[2018-10-08] MEDS: METOPROLOL TAR 50 MG TAB PO SCH (09:25)
[2018-10-08] MEDS: POTASSIUM CL SA 10 MEQ TAB PO SCH (09:25)
[2018-10-08] MEDS: JUVEN PACKET PO SCH (09:26)
[2018-10-08] MEDS: ENSURE ENLIVE 237 ML CAN PO SCH (09:26)
[2018-10-08 09:37] VITALS: O2SAT 96
[2018-10-08 12:41] VITALS: BP 173/84; TEMP 97.9
--- NOTE | 2018-10-08 13:42 | PN ---
Date of Progress Note: 10/08/2018 Subjective: Patient seen and examined. Chart reviewed and case discussed with RN. Patient is doing well and does not have any complaints other than her blood pressure being a little bit high in the 160s. Patient was unable to be discharged yesterday as her oxygen was not delivered. Medications: List reviewed. Physical Examination: Vital Signs: Temperature 98.2, heart rate 100, blood pressure 160/91, respirations 28, O2 of 96%on 2 L via nasal cannula. General: Awake, alert, and oriented x2 elderly female, frail, cachectic. CV: S1, S2, irregularly irregular. Peripheral pulses present. Respiratory: Moving air well bilaterally. No wheezing. Gastrointestinal: Abdomen is soft, nontender, nondistended. Positive bowel sounds. Extremities: No clubbing, cyanosis, or edema. Skin: Patient has a sacral decubitus ulcer. No signs of infection or surrounding erythema. Laboratory Data: WBC 5.4, H and H 9.5, 29.3, platelets 157. Sodium 134, potassium 4.2, chloride 99, CO2 of 30, BUN 32, creatinine 1.07, glucose 104, calcium 8.4, magnesium 1.8, AST 48, ALT 136. Assessment And Plan: A 77-year-old female with: 1. Bacteremia secondary to Methicillin-resistant Staphylococcus aureus. Continue with IV antibiotics for a total of 2 weeks. Patient is on vancomycin. 2. Chronic diastolic congestive heart failure, stable. 3. Hypoxia. Continue on supplemental oxygen. 4. Elevated CK level. Rhabdomyolysis, nontraumatic, resolved. 5. Elevated troponin level likely secondary to above. 6. Acute hypotension, resolved. 7. Chronic atrial fibrillation. Continue beta-blockers and aspirin. 8. Hemochromatosis, chronic. 9. Sacral decubitus ulcer present on admission. Continue with offloading and wound care. 10. Acute respiratory distress with hypoxia. 11. Elevated liver enzymes, improving. 12. Hypomagnesemia, replaced. Plan: Discharge home with IV antibiotics once oxygen has been delivered. /SUSAN Voice ID: [id number] Report ID: [id number]
--- NOTE | 2018-10-08 17:18 | PN ---
Date of Progress Note: 10/08/2018 Subjective: Ms. Johnson was seen initially on 10/06/2018 because of congestive heart failure, atrial f ibrillation, not a candidate for anticoagulation because of multiple falls. She has been treated for pneumonia, MRSA sepsis, and congestive heart failure, elevated troponin. Her creatinine is 0.97. S he is tolerating Lasix well, tolerating antibiotics well. She is anemic at 9.7. No chest pain repor yamile. CHF improving. They are awaiting for home oxygen before she goes home. No change in therapy f or now. I would like to see her in the office in the next week or 2. ASHLEY/SUSAN Voice ID: [id number] Report ID: [id number]
[2018-10-09] MEDS ORDERED: VANCOMYCIN/NS 1 gm 1 GM/250 ML BAG IVPB SCH (06:00)
--- NOTE | 2018-10-09 09:45 | P.PN ---
Date of Service: 10/08/18 Vital Signs Temp Pulse Resp BP Pulse Ox 97.9 F 106 H 26 H 173/84 H 97 10/08/18 12:00 10/08/18 12:00 10/08/18 12:00 10/08/18 12:00 10/08/18 12:00 Microbiology Results 10/02/18 14:00 Blood - Blood Aerobic Blood Culture - Final No growth in 5 days. 10/02/18 14:00 Blood - Blood Anaerobic Blood Culture - Final No growth in 5 days. 10/02/18 13:45 Blood - Blood Aerobic Blood Culture - Final Meth Resistant Staph Aureus 10/02/18 13:45 Blood - Blood Gram Stain - Final 10/02/18 13:45 Blood - Blood Anaerobic Blood Culture - Final Assessment/ Plan: Nephrology Doing well. CPS stable without CP or SOB. No acute events overnight. Vitals, medications, blood work and imaging reviewed in the chart. NAD. MMM. Neck supple. CTA. RRR. Soft Abd. No C/C/E. No rash. AAO. Normal Speech. A/ MAGNUS, resolved. Hyponatremia, stable. HTN. IFG. Acute hepatitis, improving. Anemia in chronic illness, microcytic. sp PRBC. P/ Continue current POC and Medications. AM labs PRN. Daily weight. No NSAIDs. Plan to go home soon with Oxygen. Abx as ordered.
== END 2018-10-08 15:05 | disposition home health service (06) | DRG 871 ==
LOC: ER 12:11 → ERHOLD 15:54 → 3RD-ICU 17:15 → 2ND 10-03 17:10
PROVIDERS: ADMIT Family Medicine; ATTEND Family Medicine
PROC: 30233N1 Transfusion of Nonautologous Red Blood Cells into Peripheral Vein, Percutaneous Approach (ICD-10-PCS; principal; 2018-10-02)
PROC: 02HV33Z Insertion of Infusion Device into Superior Vena Cava, Percutaneous Approach (ICD-10-PCS; 2018-10-02)
DX: R78.81 Bacteremia (principal); J96.01 Acute respiratory failure with hypoxia; N17.9 Acute kidney failure, unspecified; E87.1 Hypo-osmolality and hyponatremia; R64 Cachexia; Z68.1 Body mass index [BMI] 19.9 or less, adult; B17.9 Acute viral hepatitis, unspecified; I50.32 Chronic diastolic (congestive) heart failure; M62.82 Rhabdomyolysis; I95.9 Hypotension, unspecified; L89.159 Pressure ulcer of sacral region, unspecified stage; B95.62 Methicillin resistant Staphylococcus aureus infection as the cause of diseases classified elsewhere; I11.0 Hypertensive heart disease with heart failure; R33.9 Retention of urine, unspecified; D63.8 Anemia in other chronic diseases classified elsewhere; E86.9 Volume depletion, unspecified; I48.2 Chronic atrial fibrillation; I25.10 Atherosclerotic heart disease of native coronary artery without angina pectoris; F41.9 Anxiety disorder, unspecified; E03.9 Hypothyroidism, unspecified; E83.42 Hypomagnesemia; G43.909 Migraine, unspecified, not intractable, without status migrainosus; Z87.891 Personal history of nicotine dependence; Z86.73 Personal history of transient ischemic attack (TIA), and cerebral infarction without residual deficits
CPT/HCPCS: 36415; 70450; 71045; 76770; 80048; 80053; 80076; 80202; 81003; 81015; 82274; 82533; 82550; 82728; 82805; 83540; 83605; 83690; 83735; 84100; 84145; 84439; 84443; 84466; 84484; 85025; 85610; 86850; 86900; 86901; 87040; 87077; 87186; 87205; 93005; 94640; 96361; 96365; 97116; 97163; 97530; 99285; J0692; J1650; J1940; J2270; J2354; J3010; J3370; J3475; J7030; P9016

== ENCOUNTER 2018-10-13 21:04 | Inpatient (IN) | payer MEDICARE ==
--- NOTE | 2018-10-13 21:35 | EDPHYS ---
Physician Documentation [facility] Name: Laila Johnson Age: 77 yrs Sex: Female : 1940 Arrival Date: 10/13/2018 Time: 21:14 Bed 2 Private MD: ED Physician Lobito Andres HPI: 10/14 00:17 This 77 yrs old Female presents to ER via EMS with complaints of Breathing tw4 Difficulty. 00:17 The patient has shortness of breath at rest. Onset: The symptoms/episode began/occurred tw4 3 day(s) ago. Duration: The symptoms are chronic, for 2 month(s), are continuous, and are steadily getting worse. The patient's shortness of breath has no apparent modifying factors. Associated signs and symptoms: The patient has no apparent associated signs or symptoms. Severity of symptoms: At their worst the symptoms were moderate in the emergency department the symptoms are unchanged. The patient has not experienced similar symptoms in the past. Historical: - Allergies: 10/13 21:35 No Known Allergies; tr5 - Home Meds: 21:35 furosemide 40 mg Oral tab 1 tab once daily [Active]; cefdinir 300 mg Oral cap 1 cap tr5 every 12 hours [Active]; levothyroxine 25 mcg tab 1 tab once daily [Active]; metoprolol tartrate 50 mg Oral tab 1 tab 2 times per day [Active]; morphine 30 mg Oral tab 1 tab every 4 hours [Active]; Phenergan Oral 25 mg [Active]; potassium chloride 10 mEq Oral cpER 1 cap once daily [Active]; - PMHx: 21:35 Anemia; Cellulitis; hemachromotosis; Migraines; stroke 2013; tr5 22:29 Atrial Fib; tr5 - Immunization history:: Adult Immunizations up to date. - Social history:: Smoking status: Patient/guardian denies using tobacco. - Ebola Screening: : No symptoms or risks identified at this time. ROS: 10/14 00:17 Constitutional: Negative for fever, chills, and weight loss, Eyes: Negative for injury, tw4 pain, redness, and discharge, Neck: Negative for injury, pain, and swelling, Cardiovascular: Negative for chest pain, palpitations, and edema, Abdomen/GI: Negative for abdominal pain, nausea, vomiting, diarrhea, and constipation, Back: Negative for injury and pain, MS/Extremity: Negative for injury and deformity, Skin: Negative for injury, rash, and discoloration, Neuro: Negative for headache, weakness, numbness, tingling, and seizure. Respiratory: Positive for shortness of breath, at rest. Negative for cough, pleurisy. Exam: 00:17 Head/Face: Normocephalic, atraumatic. Chest/axilla: Normal chest wall appearance and tw4 motion. Nontender with no deformity. No lesions are appreciated. Cardiovascular: Regular rate and rhythm with a normal S1 and S2. No gallops, murmurs, or rubs. Normal PMI, no JVD. No pulse deficits. Respiratory: Lungs have equal breath sounds bilaterally, clear to auscultation and percussion. No rales, rhonchi or wheezes noted. No increased work of breathing, no retractions or nasal flaring. Abdomen/GI: Soft, non-tender, with normal bowel sounds. No distension or tympany. No guarding or rebound. No evidence of tenderness throughout. MS/ Extremity: Pulses equal, no cyanosis. Neurovascular intact. Full, normal range of motion. Neuro: Awake and alert, GCS 15, oriented to person, place, time, and situation. Cranial nerves II-XII grossly intact. Motor strength 5/5 in all extremities. Sensory grossly intact. Cerebellar exam normal. Normal gait. 00:17 Constitutional: The patient appears frail, listless, in obvious distress, moderately distressed. Vital Signs: 10/13 21:15 BP 155 / 117; Pulse 155; Resp 28; Temp 99.5(O); Pulse Ox 100% on 2 lpm NC; tr5 21:15 Weight 49.9 kg (R); lp1 21:30 BP 183 / 108; Pulse 128; Resp 28; Pulse Ox 100% on NC; tr5 22:00 BP 140 / 115; Pulse 138; Resp 27; Pulse Ox 100% on 2 lpm NC; tr5 22:28 BP 155 / 81; Pulse 130; Resp 29; Pulse Ox 98% on 2 lpm NC; tr5 23:05 BP 124 / 88; Pulse 134; Resp 30; Pulse Ox 99% on R/A; tr5 10/14 00:12 BP 154 / 108; Pulse 115; Resp 29; Pulse Ox 99% on 2 lpm NC; tr5 01:00 BP 165 / 91; Pulse 125; Resp 24; Pulse Ox 94% on 2 lpm NC; lp1 MDM: 10/13 21:14 Patient medically screened. tw10/14 00:17 Differential diagnosis: asthma, CHF exacerbation, Myocardial Infarction pneumonia, tw4 pulmonary edema, Pulmonary Embolism reactive airway disease. Data reviewed: vital signs, nurses notes. Data interpreted: Pulse oximetry: Interpretation: hypoxia. Test interpretation: by ED physician or midlevel provider: ECG, plain radiologic studies. Counseling: I had a detailed discussion with the patient and/or guardian regarding: the historical points, exam findings, and any diagnostic results supporting the discharge/admit diagnosis, lab results, radiology results. Medication response: Cardizem. Response to treatment: the patient's symptoms have mildly improved after treatment, and as a result, I will admit patient. Physician consultation: Candace Payne MD regarding admission, and will see patient in ED. 10/13 21:15 Order name: Basic Metabolic Panel tw 10/13 21:15 Order name: CBC with Diff; Complete Time: 21:46 tw4 10/13 21:15 Order name: LFT's tw4 10/13 21:15 Order name: Magnesium tw4 10/13 21:15 Order name: NT PRO-BNP tw4 10/13 21:15 Order name: PT-INR; Complete Time: 21:46 tw4 10/13 21:15 Order name: Troponin (emerg Dept Use Only) tw4 10/14 00:33 Order name: CBC with Automated Diff EDMS 10/14 00:33 Order name: CBC with Automated Diff EDMS 10/14 00:33 Order name: Comprehensive Metabolic Panel EDMS 10/14 00:33 Order name: Comprehensive Metabolic Panel EDMS 10/14 00:33 Order name: Magnesium EDMS 10/14 00:33 Order name: Magnesium EDMS 10/14 00:33 Order name: Phosphorus EDMS 10/13 21:15 Order name: XRAY Chest (1 view) tw4 10/13 21:15 Order name: EKG; Complete Time: 21:16 tw4 10/14 00:32 Order name: CONS Physician Consult EDMS 10/14 00:32 Order name: Heart Healthy EDMS 10/14 00:32 Order name: Echo with Doppler EDMS 10/14 00:33 Order name: EKG Electrocardiogram EDIN 10/14 00:33 Order name: Phosphorus EDMS 10/14 00:33 Order name: NT PRO-BNP EDIN 10/14 00:33 Order name: NT PRO-BNP EDIN 10/14 00:34 Order name: NT PRO-BNP EDIN 10/14 00:34 Order name: Troponin I EDIN 10/14 00:34 Order name: Troponin I EDIN 10/14 00:34 Order name: Troponin I EDIN 10/13 21:15 Order name: Cardiac monitoring; Complete Time: 21:30 tw4 10/13 21:15 Order name: EKG - Nurse/Tech; Complete Time: 21:30 tw4 10/13 21:15 Order name: IV Saline Lock; Complete Time: 21:30 tw4 10/13 21:15 Order name: Labs collected and sent; Complete Time: 21:30 tw4 10/13 21:15 Order name: O2 Per Protocol; Complete Time: 21:30 tw4 10/13 21:15 Order name: O2 Sat Monitoring; Complete Time: 21:30 tw4 10/14 00:33 Order name: EKG Electrocardiogram EDIN 10/14 00:33 Order name: EKG Electrocardiogram EDIN EC:17 Rate is 119 beats/min. Rhythm is irregularly irregular, A fib. QRS [place] is Normal. MD tw4 interval is normal. QRS interval is normal. QT interval is normal. No Q waves. T waves are Normal. No ST changes noted. Clinical impression: Abnormal EKG without significant change. Interpreted by me. Reviewed by me. Administered Medications: 10/13 21:29 Drug: Cardizem 10 mg Route: IVP; Site: PICC; tr5 22:03 Follow up: Response: Cardiac rhythm is unchanged tr5 21:55 Drug: Cardizem 5 mg/hr Route: IV; Rate: calculated rate; Site: [facility]; tr5 22:17 Follow up: Rate change 10 mg/hr tr5 22:27 Follow up: Rate change 15 mg/hr tr5 21:55 Drug: NS 0.9% 500 ml Route: IV; Rate: per protocol; Site: [facility]; tr5 Disposition: 10/13/18 21:34 Hospitalization ordered by Candace Payne for Inpatient Admission. Preliminary diagnosis is Persistent atrial fibrillation. - Bed requested for Intensive Care Unit. - Status is Inpatient Admission. tr5 - Condition is Fair. - Problem is an ongoing problem. - Symptoms have worsened. UTI on Admission? No Signatures: Dispatcher [employer] Annette Pizarro, JUAN JOSÉ RN Lobito Andres MD MD tw4 Tae De La Cruz RN RN tr5 Corrections: (The following items were deleted from the chart) 10/14 00:52 10/13 21:34 Hospitalization Ordered by Candace Payne MD for Inpatient Admission. cg Preliminary diagnosis is Persistent atrial fibrillation. Bed requested for Intensive Care Unit. Status is Inpatient Admission. Condition is Fair. Problem is an ongoing problem. Symptoms have worsened. UTI on Admission? No. tw4 10/14 02:17 00:52 10/13/2018 21:34 Hospitalization Ordered by Candace Payne MD for Inpatient tr5 Admission. Preliminary diagnosis is Persistent atrial fibrillation. Bed requested for Intensive Care Unit. Status is Inpatient Admission. Condition is Fair. Problem is an ongoing problem. Symptoms have worsened. UTI on Admission? No.
--- NOTE | 2018-10-13 21:35 | ER ---
Nurse's Notes [facility] Name: Laila Johnson Age: 77 yrs Sex: Female : 1940 Arrival Date: 10/13/2018 Time: 21:14 Bed 2 Private MD: Diagnosis: Persistent atrial fibrillation Presentation: 10/13 21:15 Presenting complaint: EMS states: Called for patient with complaint of shortness of lp1 breath; On arrival of EMS, patient with HR in 140's, states patient recently discharge with PICC line and IV antibiotics, unsure why; Patient confused, on arrival to ED, HR in 160's. 21:15 Transition of care: patient was not received from another setting of care. Onset of lp1 symptoms was October 13, 2018. Risk Assessment: Do you want to hurt yourself or someone else? Patient reports no desire to harm self or others. Initial Sepsis Screen: Does the patient meet any 2 criteria? RR > 20 per min. HR > 90 bpm. Does the patient have a suspected source of infection? Yes: Other: Patient on antibiotics per family If YES to both, name of provider notified: Lobito Andres MD Care prior to arrival: None. 21:15 Method Of Arrival: EMS: [facility] lp1 21:15 Acuity: LUCIE 2 lp1 Historical: - Allergies: 21:35 No Known Allergies; tr5 - Home Meds: 21:35 furosemide 40 mg Oral tab 1 tab once daily [Active]; cefdinir 300 mg Oral cap 1 cap tr5 every 12 hours [Active]; levothyroxine 25 mcg tab 1 tab once daily [Active]; metoprolol tartrate 50 mg Oral tab 1 tab 2 times per day [Active]; morphine 30 mg Oral tab 1 tab every 4 hours [Active]; Phenergan Oral 25 mg [Active]; potassium chloride 10 mEq Oral cpER 1 cap once daily [Active]; - PMHx: 21:35 Anemia; Cellulitis; hemachromotosis; Migraines; stroke 2013; tr5 22:29 Atrial Fib; tr5 - Immunization history:: Adult Immunizations up to date. - Social history:: Smoking status: Patient/guardian denies using tobacco. - Ebola Screening: : No symptoms or risks identified at this time. Screenin:00 Abuse screen: Denies threats or abuse. Nutritional screening: No deficits noted. tr5 Tuberculosis screening: No symptoms or risk factors identified. Fall Risk Total Bond Fall Scale indicates No Risk (0-24 pts). Assessment: 21:00 General: Appears uncomfortable, Behavior is agitated. Pain: Denies pain. Neuro: Level tr5 of Consciousness is awake, alert, Oriented to person, Applications Scientist are equal bilaterally Moves all extremities. Cardiovascular: Heart tones present Bruits absent Capillary refill < 3 seconds Pulses are all present. Edema is absent. Rhythm is atrial fibrillation with rapid ventricular response. Respiratory: Reports shortness of breath at rest Airway is patent Trachea midline Respiratory effort is even, Breath sounds are clear bilaterally. GI: No signs and/or symptoms were reported involving the gastrointestinal system. : No signs and/or symptoms were reported regarding the genitourinary system. EENT: No signs and/or symptoms were reported regarding the EENT system. Derm: Skin is intact, Skin is dry, Skin is pink, warm \T\ dry. Skin temperature is warm. Musculoskeletal: Capillary refill < 3 seconds, Range of motion: intact in all extremities. 22:49 Reassessment: Patient appears in no apparent distress at this time. Patient and/or tr5 family updated on plan of care and expected duration. Pain level reassessed. 22:51 Reassessment: Pt unable to describe pain but is yelling intermittently. tr5 23:21 Reassessment: Pt repositioned for comfort. Pain to buttocks. Stage III sacral ulcer tr5 noted. 10/14 00:29 Reassessment: Patient appears in no apparent distress at this time. Patient and/or tr5 family updated on plan of care and expected duration. Pain level reassessed. 01:01 Reassessment: Patient appears in no apparent distress at this time. Patient resting, lp1 eyes closed, respirations even; at bedside, aware of pending admission. Vital Signs: 10/13 21:15 BP 155 / 117; Pulse 155; Resp 28; Temp 99.5(O); Pulse Ox 100% on 2 lpm NC; tr5 21:15 Weight 49.9 kg (R); lp1 21:30 BP 183 / 108; Pulse 128; Resp 28; Pulse Ox 100% on NC; tr5 22:00 BP 140 / 115; Pulse 138; Resp 27; Pulse Ox 100% on 2 lpm NC; tr5 22:28 BP 155 / 81; Pulse 130; Resp 29; Pulse Ox 98% on 2 lpm NC; tr5 23:05 BP 124 / 88; Pulse 134; Resp 30; Pulse Ox 99% on R/A; tr5 10/14 00:12 BP 154 / 108; Pulse 115; Resp 29; Pulse Ox 99% on 2 lpm NC; tr5 01:00 BP 165 / 91; Pulse 125; Resp 24; Pulse Ox 94% on 2 lpm NC; lp1 ED Course: 10/13 21:00 EKG completed in triage. Results shown to MD. tr5 21:00 Patient has correct armband on for positive identification. Placed in gown. Bed in low tr5 position. Call light in reach. Door closed. Noise minimized. Warm blanket given. Head of bed elevated. 21:00 Accessed PICC line. Clean \T\ dry. Dressing intact. Good blood return. Flushes easily. tr5 21:14 Patient arrived in ED. tw4 21:14 Lobito Andres MD is Attending Physician. tw4 21:17 Fritz South, RN is Primary Nurse. rv 21:29 Tae De La Cruz, RN is Primary Nurse. tr5 21:34 Candace Payne MD is Hospitalizing Provider. tw4 21:35 Arm band placed on. tr5 21:37 XRAY Chest (1 view) In Process Unspecified. EDMS 22:09 Triage completed. lp1 10/14 00:12 Awaiting bed assignment. tr5 01:00 No provider procedures requiring assistance completed. Patient admitted, IV remains in lp1 place. Administered Medications: 10/13 21:29 Drug: Cardizem 10 mg Route: IVP; Site: [facility]; tr5 22:03 Follow up: Response: Cardiac rhythm is unchanged tr5 21:55 Drug: Cardizem 5 mg/hr Route: IV; Rate: calculated rate; Site: [facility]; tr5 22:17 Follow up: Rate change 10 mg/hr tr5 22:27 Follow up: Rate change 15 mg/hr tr5 21:55 Drug: NS 0.9% 500 ml Route: IV; Rate: per protocol; Site: [facility]; tr5 Outcome: 21:34 Decision to Hospitalize by Provider. tw4 10/14 01:01 Condition: stable lp1 Instructed on the need for admit. 01:05 Admitted to ICU accompanied by nurse, via stretcher, room 1, with oxygen, on monitor, lp1 with chart, Report called to Indu Solis RN 02:17 Patient left the ED. tr5 Signatures: Dispatcher [employer] EDMS Marjan Turner RN RN lp1 Lobito Andres MD MD tw4 Fritz South RN RN rv Tae De La Cruz RN RN tr5 Corrections: (The following items were deleted from the chart) 10/13 22:09 21:15 Presenting complaint: EMS states: Called for patient with complaint of shortness lp1 of breath; On arrival of EMS, patient with HR in 140's, states patient recently discharge with PICC line and IV antibiotics, unsure why; lp1 10/14 01:07 01:01 Reassessment: Patient appears in no apparent distress at this time. Patient lp1 resting, eyes closed, respirations even lp1
[2018-10-13 21:36] LABS: Basophils % 0.7 % (0-1.3); Hematocrit 30.4 % (36.0-45.0); Lymphocytes % 10.3 % (15.3-44.8); MPV 8.6 fL (7.6-11.3); RBC Red Blood Cell Count 3.87 M/uL (3.86-4.86)
[2018-10-13 21:37] LABS: Protime INR 1.53
[2018-10-13] MEDS ORDERED: dilTIAZem HCl 25 MG/5 ML VIAL IV ONE ×2 (21:43→22:04)
[2018-10-13 22:00] LABS: Albumin 3.7 g/dL (3.4-5.0); Bilirubin Direct 0.6 mg/dL (0-0.2); Bilirubin Total 1.6 mg/dL (0.2-1.0); Magnesium 1.7 mg/dL (1.8-2.4); Potassium 3.3 mmol/L (3.5-5.1); Protein, Total 7.4 g/dL (6.4-8.2); Troponin (Emerg Dept Use Only) 0.03 ng/mL (0.0-0.045)
[2018-10-13] MEDS ORDERED: NA CHLORIDE 0.9% 100 ML IV ONE (22:06)
[2018-10-13] MEDS ORDERED: NA CHLORIDE 0.9% 500 ML ONE (22:13)
[2018-10-14] MEDS ORDERED: ONDANSETRON 4 MG/2 ML VIAL IV PRN (00:10)
[2018-10-14] MEDS ORDERED: POTASSIUM CL 40 MEQ in NA CHLORIDE 0.9% 500 ML IV SCH (01:00)
[2018-10-14] MEDS ORDERED: NA CHLORIDE 0.9% 100 ML ONE (02:17)
[2018-10-14] MEDS ORDERED: dilTIAZem HCl 25 MG/5 ML VIAL IV ONE ×2 (02:18→02:19)
[2018-10-14] MEDS ORDERED: DILTIAZEM INJ 125 MG in NA CHLORIDE 0.9% 100 ML IVPB PRN (02:49)
[2018-10-14] MEDS: METOPROLOL TARTRATE 5 MG/5 ML INJ IV STA ×2 (02:54→03:00)
[2018-10-14] MEDS: METOPROLOL TAR 50 MG TAB PO SCH ×3 (03:10→20:15)
[2018-10-14] MEDS: FUROSEMIDE 40 MG/4 ML VIAL IV SCH ×3 (03:18→18:03)
[2018-10-14] MEDS ORDERED: KCL 20 MEQ/100 mL IVPB 40 MEQ/200 ML BAG IV ONE (03:45)
[2018-10-14] MEDS ORDERED: MAGNESIUM SULFATE 1 gm IVPB 1 GM/100 ML BAG IV ONE (06:51)
--- NOTE | 2018-10-14 07:15 | RAD REPORT ---
EXAM DESCRIPTION: Ray Single View10/13/2018 9:40 pm CLINICAL HISTORY: Shortness of breath COMPARISON: October 12, 2018 FINDINGS: Small to moderate right pleural effusion. A small left pleural effusion. Bibasilar atelectasis. The heart is moderately enlarged. A PICC line remains place.
--- NOTE | 2018-10-14 07:29 | P.HP ---
Certification for Inpatient Patient admitted to: Inpatient With expected LOS: >2 Midnights Practitioner: I am a practitioner with admitting privileges, knowledge of patient current condition, hospital course, and medical plan of care. Services: Services provided to patient in accordance with Admission requirements found in Title 42 Section 412.3 of the Code of Federal Regulations Patient History Date of Service: 10/14/18 Reason for admission: Atrial fibrillation w/ RVR History of Present Illness: Patient is a 77-year-old female who was admitted to the hospital a week ago and diagnose with MRSA of a sacral decubitus ulcer. Patient was septic at that time and blood cultures revealed MRSA assay. Patient was discharged on IV vancomycin. This was just 1 week prior. Patient has been getting the IV vancomycin dose per home health. Patient neurologically is not that interactive. Patient's suffered a stroke a while back which has left her depending on her for most of her care. She came into the emergency room short of breath. Workup in the ER revealed atrial fibrillation with rapid ventricular response. Patient is on beta-amilcar. No anti coagulation because patient is a high risk for bleeding. Patient was started on a Cardizem drip. Recent echocardiogram did not reveal any significant abnormality. We started patient back on beta-amilcar and had weaned off the Cardizem. Currently on 2 mg and hopefully will give patient off very soon. Will Consult Cardiology for further input. Unsure as to if patient's patient's mentation is altered. from her old records and talking to the nursing staff she was not completely behaving in this manner. She would at least engage in some conversation. She is really isn 't conversing at this time. This could be related to her becoming bacteremic. We may need further imaging as well. Allergies No Known Allergies Allergy (Unverified 05/03/18 18:46) Home Medications: Furosemide 40 mg PO DAILY 10/03/18 Levothyroxine Sodium 1 tab PO DAILY 10/03/18 Metoprolol Tartrate [Lopressor] 50 mg PO BID 10/03/18 Potassium Chloride 10 meq PO DAILY 10/03/18 Aspirin [Aspirin EC 81 MG] 81 mg PO DAILY #30 tablet. 10/07/18 Vancomycin/0.9 % Sod Chloride [Vanco 1 Gram/250 ml-0.9% NaCl] 1 gm IV DAILY 14 Days #1 plast..bag 10/07/18 Ascorbic Acid [Vitamin C] 1,000 mg PO DAILY 10/14/18 - Past Medical/Surgical History Has patient received pneumonia vaccine in the past: Yes Diabetic: No -: Stroke(2013) -: Chronic Back Pain -: TMJ(Severe) -: AFIB -: bacterial meningitis(september 2013) -: hemochromotosis -: anemia -: HTN -: jamil -: breast sx ( left) cyst removed -: sinus sx -: varicose vein surgery -: tubal ligation -: vein surgery 36 years old Psychosocial/ Personal History: Patient smoked 1/2ppd for 35 years. Quit 20 years ago.She lives with her husbandHas all her primary and secondary ADL'sShe denies any physical or financial abuse - Family History Sister Medical History: Cancer Brother Medical History: Kidney disease Mother Notes: hole in esophagus - Social History Smoking Status: Former smoker Alcohol use: No CD- Drugs: No Caffeine use: Yes Place of Residence: Home Review of Systems is unable to be obtained Physical Examination - Vital Signs Temperature: 98.1 F Blood Pressure: 131/73 Pulse: 84 Respirations: 33 Pulse Ox (%): 94 - Physical Exam General: Alert, In no apparent distress, Oriented x3 HEENT: Atraumatic, PERRLA, Mucous membr. moist/pink, EOMI, Sclerae nonicteric Neck: Supple, 2+ carotid pulse no bruit, No LAD, Without JVD or thyroid abnormality Respiratory: Clear to auscultation bilaterally, Normal air movement Cardiovascular: Irregular heart rate/rhythm, Systolic murmur Gastrointestinal: Normal bowel sounds, Soft and benign, Non-distended, No tenderness Musculoskeletal: No clubbing, No swelling, No tenderness Integumentary: No rashes Neurological: Normal speech, Normal tone, Sensation intact, Cranial nerves 3-12 intact, Normal affect, Abnormal gait, Abnormal strength Lymphatics: No axilla or inguinal lymphadenopathy - Studies Laboratory Data (last 24 hrs) 10/13/18 21:15: PT 17.8 H, INR 1.53 10/13/18 21:15: WBC 9.8 D, Hgb 9.7 L, Hct 30.4 L, Plt Count 216 10/13/18 21:15: Sodium 131 L, Potassium 3.3 L, BUN 11, Creatinine 1.02, Glucose 135 H, Magnesium 1.7 L, Total Bilirubin 1.6 H, AST 21, ALT 54, Alkaline Phosphatase 82 Assessment & Plan - Problems (Diagnosis) (1) Atrial fibrillation with rapid ventricular response Current Visit: Yes Status: Acute (2) MRSA bacteremia Current Visit: Yes Status: Acute (3) Chronic diastolic (congestive) heart failure Current Visit: No Status: Acute (4) TIA (transient ischemic attack) Onset Date: 05/30/15 Current Visit: No Status: Acute Qualifiers: (5) Urine retention Current Visit: No Status: Acute (6) Sacral decubitus ulcer Current Visit: No Status: Chronic Qualifiers: Pressure injury stage: stage 4 Qualified Code(s): L89.154 - Pressure ulcer of sacral region, stage 4 - Plan Plan: 1. IV antibiotics 2. wean off Cardizem drip and resume beta-amilcar therapy 3. Cardiology consultation 4. Gentle hydration 5. may need repeat echocardiogram; discuss with Cardiology 6. she will need continued neuro checks and will discuss with family regarding her baseline mental status 7. out of bed and ambulate with physical therapy 8. wound healing center consultation 9. GI and DVT prophylaxis Discharge Plan: Home Plan to discharge in: Greater than 2 days - Advance Directives Does patient have a Living Will: No Does patient have a Durable POA for Healthcare: No - Code Status/Comfort Care Code Status Assessed: Yes Code Status: Full Code Critical Care: No Time Spent Managing PTS Care (In Minutes): 45
[2018-10-14] MEDS ORDERED: VANCOMYCIN 1 GM in NA CHLORIDE 0.9% 500 ML IVPB SCH (08:00)
[2018-10-14] MEDS: ASPIRIN EC 81 MG TAB PO SCH (09:00)
[2018-10-14] MEDS: VANCOMYCIN/NS 1 gm 1 GM/250 ML BAG IV SCH (09:06)
--- NOTE | 2018-10-14 10:09 | RAD REPORT ---
EXAM DESCRIPTION: CT - Head Brain Wo Cont - 10/14/2018 9:49 am CLINICAL HISTORY: Alteration of awareness/confusion COMPARISON: October 03, 2018 TECHNIQUE: Computed axial tomography of the head was obtained. IV contrast was not requested. All CT scans are performed using dose optimization technique as appropriate and may include automated exposure control or mA/KV adjustment according to patient size. FINDINGS: An intracranial bleed is not seen . The ventricles are normal in caliber. No extra-axial fluid collection is noted. Old left occipital infarct. Old lacunar infarcts left caudate and left basal ganglia Mild to moderate low-density areas within periventricular, deep and subcortical white matter likely r epresent ischemic changes secondary to small vessel disease. Fluid within the sinuses/ mastoids is not seen. IMPRESSION: No acute intracranial abnormality is seen. If patient's symptoms persist MRI of the bra in would be recommended.
--- NOTE | 2018-10-14 10:48 | EKG ---
Test Date: 2018-10-13 Test Time: 21:15:14 Automation And Controls Manager: BLB MEASUREMENT RESULTS: Intervals: Rate: 157 [place]: QRSD: 116 QT: 296 QTc: 478 [place]: P: [place]: QRS: 97 T: -18 INTERPRETIVE STATEMENTS: Atrial fibrillation with rapid ventricular response Right bundle branch block T wave abnormality, consider inferior ischemia Abnormal ECG Electronically Signed On 10-14-18 10:47:35 CDT by Shaun Gallagher Compared to ECG 10/02/2018 16:26:23 T-wave abnormality now present Possible ischemia now present Electronically Signed On 10-16-18 12:33:22 CDT by Lee Shine
--- NOTE | 2018-10-14 10:48 | EKG ---
Test Date: 2018-10-14 Test Time: 08:38:51 Claims Director: REMBERTO MEASUREMENT RESULTS: Intervals: Rate: 98 ME: QRSD: 126 QT: 430 QTc: 548 [place]: P: [place]: QRS: 96 T: 22 INTERPRETIVE STATEMENTS: Atrial fibrillation Right bundle branch block Abnormal ECG Electronically Signed On 10-14-18 10:45:17 CDT by Shaun Gallagher Compared to ECG 10/13/2018 21:31:51 T-wave abnormality no longer present Possible ischemia no longer present Electronically Signed On 10-16-18 12:33:20 CDT by Lee Shine
--- NOTE | 2018-10-14 14:18 | CON ---
History Of Present Illness: Mrs. Johnson came to the hospital because of altered mental status. She w as also found to be in atrial fib with rapid response. 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 Without any anticoagulant, her INR is 1.53 consistent with mild anticoagulation, s o we felt it would be very dangerous to try and give her a Watchman device or an anticoagulant. She lives in her own house. Her takes care of her. I think we have to be concerned that she pro eduly was not getting all of her medications. Her outpatient medications included aspirin, Lasix, me toprolol 50 b.i.d., levothyroxine, potassium, vancomycin, and ascorbic acid. She has been on a Cardi zem drip, but now it is off and her heart rate is good and that we document she is getting metoprolol , so I wonder if she is really getting all of the medicines she is supposed to. I am at least suspic ious her rapid heart rate was from missing a few doses of her metoprolol. Physical Examination: General: The patient is obtunded. She barely responds to words. Her neurological status is very di fferent from before. Vital signs: Her heart rate is 80. Her most recent blood pressure is 131/73. She is in atrial fibr illation with a controlled heart rate. Abdomen: Soft. Extremities: Not edematous. Distal pulses diminished. She has a sacral decubitus that looks a adrian le bit worse. Impression: The patient may have had a stroke from her atrial fibrillation. A CAT scan is pending. I do not think we can really contemplate giving her anticoagulants safely. I think the multitude of serious medical problems that Ms. Johnson is now dealing with may be overwhelming. I suspect she need s to be in a half-way instead of going home and expecting very complicated care to take place. Jack villegas will see what we can about her neurological status, but of course, we are highly suspicious at this time as she has had a dominant hemisphere stroke. RAYMON/SUSAN Voice ID: [id number] Report ID: [id number]
[2018-10-14 15:37] LABS: Urine Appearance CLEAR; Urine Bilirubin NEGATIVE (NEG); Urine Blood NEGATIVE (NEG); Urine Color YELLOW; Urine Glucose NEGATIVE (NEG); Urine Microscopic Reflex ORDER UMIC; Urine Protein 2+ (NEG); Urine Urobilinogen 0.2 mg/dL (0.2-1.0); Urine pH 7.5 (5.0-7.0)
--- NOTE | 2018-10-14 16:13 | ECHO ---
HEIGHT: 5 ft 7 in WEIGHT: 112 lb 0 oz DATE OF STUDY: 10/14/[address]: Candace Payne MD 2-DIMENSIONAL: YES M.MODE: YES DOPPLER: YES COLOR FLOW: YES TDS: YES PORTABLE: DEFINITY: BUBBLE STUDY: DIAGNOSIS: AFIB W/RVR CARDIAC HISTORY: CATHERIZATION: NO SURGERY: NO PROSTHETIC VALVE: NO PACEMAKER: YES MEASUREMENTS (cm) DIASTOLIC (NORMALS) SYSTOLIC (NORMALS) IVSd 1.1 (0.6-1.2) LA Diam 3.4 (1.9-4.0) LVEF 66% LVIDd 4.4 (3.5-5.7) LVIDs 2.8 (2.0-3.5) %FS 36% LVPWd 1.1 (0.6-1.2) Ao Diam 3.0 (2.0-3.7) 2 DIMENSIONAL ASSESSMENT: RIGHT ATRIUM: DILATED LEFT ATRIUM: DILATED RIGHT VENTRICLE: DILATED LEFT VENTRICLE: NORMAL TRICUSPID VALVE: NORMAL MITRAL VALVE: MITRAL ANNULAR CALCIFICATION PULMONIC VALVE: NORMAL AORTIC VALVE: NORMAL PERICARDIAL EFFUSION: NONE AORTIC ROOT: NORMAL LEFT VENTRICULAR WALL MOTION: NORMAL DOPPLER/COLOR FLOW: MILD MITRAL REGURGITATION AND TRICUSPID REGURGITATION. ESTIMATED RIGHT VENTRICULAR SYSTOLIC PRESSURE 43 mmHg. MILD PULMONARY HYPERTENSION. COMMENTS: NORMAL LEFT VENTRICULAR EJECTION FRACTION. DILATED RIGHT ATRIUM, RIGHT VENTRICLE, AND LEFT ATRIUM. MILD MITRAL REGURGITATION AND TRICUSPID REGURGITATION. MILD PULMONARY HYPERTENSION. MITRAL ANNULAR CALCIFICATION. ATRIAL FIBRILLATION. TECHNOLOGIST: DARLING CORRALES
[2018-10-14 16:22] LABS: Urine Culture Reflex Order NOT NEEDED
[2018-10-14 16:23] LABS: Urine Amorphous Sediment 1+ /HPF (NONE SEEN); Urine Bacteria <20 /HPF (<20); Urine RBC <5 /HPF (NONE SEEN)
[2018-10-14] MEDS: JUVEN PACKET PO SCH (20:17)
[2018-10-14] MEDS: ENSURE ENLIVE 237 ML CAN PO SCH (20:17)
[2018-10-14 21:16] VITALS: BMI 18.2
[2018-10-15 05:19] LABS: Basophils % 0.5 % (0-1.3); Hematocrit 29.2 % (36.0-45.0); MPV 8.8 fL (7.6-11.3); RBC Red Blood Cell Count 3.69 M/uL (3.86-4.86)
[2018-10-15 06:27] LABS: Albumin 3.3 g/dL (3.4-5.0); Phosphorus 2.4 mg/dL (2.5-4.9); Protein, Total 6.8 g/dL (6.4-8.2)
[2018-10-15 06:52] LABS: Potassium 2.9 mmol/L (3.5-5.1)
[2018-10-15] MEDS: KCL 20 MEQ/100 mL IVPB 20 MEQ/100 ML BAG IV SCH ×3 (07:43→12:20)
[2018-10-15] MEDS: JUVEN PACKET PO SCH ×2 (09:00→20:10)
[2018-10-15] MEDS: ENSURE ENLIVE 237 ML CAN PO SCH ×2 (09:33→20:10)
[2018-10-15] MEDS: ASPIRIN EC 81 MG TAB PO SCH (09:35)
[2018-10-15] MEDS: METOPROLOL TAR 50 MG TAB PO SCH ×2 (09:35→20:10)
[2018-10-15] MEDS: MEDIHONEY 44 ML TOPICAL TUBE TOP SCH (09:35)
[2018-10-15] MEDS ORDERED: LORazepam 2 MG/ML VIAL IV ONE (13:33)
--- NOTE | 2018-10-15 15:21 | PN ---
Date of Progress Note: 10/15/2018 Ms. Johnson was seen by Dr. Gallagher yesterday for atrial fibrillation, rapid ventricular response. Sherri ent has chronic atrial fibrillation, possible CVA. She has liver failure secondary to hemochromatosi s. She has altered mental status, has had a history of GI bleed requiring 6 units of packed red bloo d cells in the past. Echocardiogram yesterday showed an ejection fraction of 66% with mild pulmonary hypertension. I will continue her present regimen. She needs to be on a beta-amilcar for rate cont rol. No anticoagulation. We will sign-off her case for now. ASHLEY/SUSAN Voice ID: [id number] Report ID: [id number]
--- NOTE | 2018-10-15 15:23 | P.PN ---
Subjective Date of Service: 10/15/18 Chief Complaint: Atrial fibrillation w/ RVR Patient seen and examined at bedside. Chart reviewed and case discussed with Dr. Shine and nursing staff. at bedside. Patient a little more alert today, able to tell me her name and which she was not able to do yesterday. Continues to be drowsy. She does take a significant amount of pain medications at home. Review of Systems 10-point ROS is otherwise unremarkable Physical Examination - Vital Signs Temperature: 97.9 F Blood Pressure: 115/63 Pulse: 70 Respirations: 18 Pulse Ox (%): 100 - Physical Exam General: Cachectic, Other (Not speaking much, but more than yesterday. Able to tell me her name and today which she was not able to do yesterday. ) HEENT: Atraumatic, PERRLA, EOMI Neck: Supple, JVD not distended, Bruit Respiratory: Clear to auscultation bilaterally, Normal air movement Cardiovascular: Regular rate/rhythm, Normal S1 S2 Gastrointestinal: Normal bowel sounds, No tenderness Integumentary: Pressure ulcer (Sacral ulcer, no foul smell ) Assessment And Plan - Current Problems (Diagnosis) (1) Encephalopathy Current Visit: Yes Status: Acute Plan: DDx include infectious vs CVA vs progressive dementia vs "down" phase of bipolar disorder (per ) vs pain medications - Continue current IV antibiotics - CT of the head with some questionable areas. MRI/MRA ordered, pending. Though , if positive for acute CVA, patient out of the window of tPA - Qhourly neuro checks - Per , patient more talkative at baseline. At my exam, pt more alert but not quite back to baseline and only oriented x2. (2) Atrial fibrillation with rapid ventricular response Current Visit: Yes Status: Acute Plan: Patient now off cardene drip. Continues to be in NSR - Cardiology consulted. ECHO done, stable from prior. - Continue to monitor on tele (3) MRSA bacteremia Current Visit: Yes Status: Acute Plan: Patient with culture positive for MRSA on prior admission who was discharged 1 wk ago on Home IV Vancomycin. - We will continue IV vancomycin (4) Chronic diastolic (congestive) heart failure Current Visit: No Status: Chronic (5) TIA (transient ischemic attack) Onset Date: 05/30/15 Current Visit: No Status: Acute Plan: Patient with a prior hx of TIA/CVA? - MRI ordered, pending at this time. Qualifiers: (6) Sacral decubitus ulcer Current Visit: No Status: Chronic Plan: Patient of Dr. Kerns from wound care clinic - Wound care consulted, appreciated recommendations. - Continue offloading, air mattress - Nutrition consult for wound healing - She will continue outpatient wound care follow up after discharge. Qualifiers: Pressure injury stage: stage 4 Qualified Code(s): L89.154 - Pressure ulcer of sacral region, stage 4 (7) Malnutrition Current Visit: Yes Status: Chronic Qualifiers: Malnutrition type: protein-calorie malnutrition Protein-calorie malnutrition severity: moderate Qualified Code(s): E44.0 - Moderate protein- calorie malnutrition - Plan Plan: Pending imaging (MRI), and symptomatic improvement. Overall. patient seems to have a poor prognosis.
[2018-10-15] MEDS: VANCOMYCIN/NS 1 gm 1 GM/250 ML BAG IV SCH (20:09)
[2018-10-16 05:04] LABS: Potassium 3.9 mmol/L (3.5-5.1)
[2018-10-16] MEDS ORDERED: POTASSIUM CL SA 10 MEQ TAB PO ONE (06:17)
[2018-10-16] MEDS: POTASS/SODIUM PHOSPHATE 1 PKT POWD.PACK PO SCH ×3 (06:29→10:34)
[2018-10-16] MEDS: JUVEN PACKET PO SCH ×2 (09:00→20:01)
[2018-10-16] MEDS: ASPIRIN EC 81 MG TAB PO SCH (09:24)
[2018-10-16] MEDS: METOPROLOL TAR 50 MG TAB PO SCH ×2 (09:25→20:01)
[2018-10-16] MEDS: ENSURE ENLIVE 237 ML CAN PO SCH ×2 (09:28→20:01)
[2018-10-16] MEDS: MEDIHONEY 44 ML TOPICAL TUBE TOP SCH (10:35)
--- NOTE | 2018-10-16 12:38 | EKG ---
Test Date: 2018-10-15 Test Time: 07:51:28 Radiophone Operator: KRISTIE MEASUREMENT RESULTS: Intervals: Rate: 91 [place]: QRSD: 134 QT: 444 QTc: 546 [place]: P: [place]: QRS: 103 T: 37 INTERPRETIVE STATEMENTS: Atrial fibrillation Right bundle branch block Abnormal ECG Compared to ECG 10/14/2018 08:38:51 No significant changes Electronically Signed On 10-16-18 12:33:16 CDT by Lee Shine
--- NOTE | 2018-10-16 12:39 | EKG ---
Test Date: 2018-10-13 Test Time: 21:31:51 Glass Calibrator: BLB MEASUREMENT RESULTS: Intervals: Rate: 119 [place]: QRSD: 130 QT: 364 QTc: 512 [place] [employer]: P: [place]: QRS: 98 T: -25 INTERPRETIVE STATEMENTS: Atrial fibrillation with rapid ventricular response Right bundle branch block T wave abnormality, consider inferior ischemia Abnormal ECG Electronically Signed On 10-14-18 10:47:34 CDT by Shaun Gallagher Compared to ECG 10/13/2018 21:15:14 No significant changes Electronically Signed On 10-16-18 12:33:21 CDT by Lee Shine
--- NOTE | 2018-10-16 14:52 | P.PN ---
Subjective Date of Service: 10/16/18 Chief Complaint: Atrial fibrillation w/ RVR Subjective: Improving Patient seen and examined at bedside. Chart reviewed and case discussed with Dr. Shine and nursing staff. at bedside. Patient a more alert today, able to tell me her name and and where she is at , which she was not able to do yesterday. Sitting up in chair. Review of Systems 10-point ROS is otherwise unremarkable Physical Examination - Vital Signs Temperature: 97.8 F Blood Pressure: 137/86 Pulse: 123 Respirations: 18 Pulse Ox (%): 97 - Physical Exam General: Alert, In no apparent distress, Oriented x3, Oriented x2, Cachectic HEENT: Atraumatic, PERRLA, EOMI Neck: Supple, JVD not distended Respiratory: Clear to auscultation bilaterally, Normal air movement Cardiovascular: Regular rate/rhythm, Normal S1 S2 Gastrointestinal: Normal bowel sounds, No tenderness Musculoskeletal: No tenderness Integumentary: No rashes Neurological: Normal speech, Normal tone, Normal affect Lymphatics: No axilla or inguinal lymphadenopathy Assessment And Plan - Current Problems (Diagnosis) (1) Encephalopathy Current Visit: Yes Status: Acute Plan: Improving DDx include infectious vs CVA vs progressive dementia vs "down" phase of bipolar disorder (per ) vs pain medications - Continue current IV antibiotics - CT of the head with some questionable areas. MRI/MRA ordered, pending. Unable to be done even with ativan as patient could not lay flat on his back due to the ulcer. - Continue neuro checks and monitor mental status. - Per , patient more talkative at baseline. At my exam, pt more alert but not quite back to baseline. She is now oriented x3 though. (2) Atrial fibrillation with rapid ventricular response Current Visit: Yes Status: Acute Plan: Patient now off cardene drip. Continues to be in NSR - Cardiology consulted. ECHO done, stable from prior. - Continue to monitor on tele (3) MRSA bacteremia Current Visit: Yes Status: Acute Plan: Patient with culture positive for MRSA on prior admission who was discharged 1 wk ago on Home IV Vancomycin. - We will continue IV vancomycin (4) Chronic diastolic (congestive) heart failure Current Visit: No Status: Chronic (5) TIA (transient ischemic attack) Onset Date: 05/30/15 Current Visit: No Status: Acute Plan: Patient with a prior hx of TIA/CVA? - MRI ordered, pending at this time. Qualifiers: (6) Sacral decubitus ulcer Current Visit: No Status: Chronic Plan: Patient of Dr. Kerns from wound care clinic - Wound care consulted, appreciated recommendations. - Continue offloading, air mattress - Nutrition consult for wound healing - She will continue outpatient wound care follow up after discharge. Qualifiers: Pressure injury stage: stage 4 Qualified Code(s): L89.154 - Pressure ulcer of sacral region, stage 4 (7) Malnutrition Current Visit: Yes Status: Chronic Qualifiers: Malnutrition type: protein-calorie malnutrition Protein-calorie malnutrition severity: moderate Qualified Code(s): E44.0 - Moderate protein- calorie malnutrition - Plan Plan: Pending imaging (MRI), and symptomatic improvement. Overall. patient seems to have a poor prognosis.
[2018-10-16] MEDS: ACETAMINOPHEN 500 MG TAB PO PRN (23:17)
[2018-10-17 04:51] LABS: Phosphorus 2.8 mg/dL (2.5-4.9); Potassium 4.1 mmol/L (3.5-5.1)
[2018-10-17] MEDS: METOPROLOL TAR 50 MG TAB PO SCH ×2 (08:19→20:44)
[2018-10-17] MEDS: ASPIRIN EC 81 MG TAB PO SCH (08:19)
[2018-10-17] MEDS: JUVEN PACKET PO SCH ×2 (08:20→20:45)
[2018-10-17] MEDS: MEDIHONEY 44 ML TOPICAL TUBE TOP SCH (08:20)
[2018-10-17] MEDS: ENSURE ENLIVE 237 ML CAN PO SCH ×2 (08:20→20:46)
[2018-10-17] MEDS: VANCOMYCIN/NS 1 gm 1 GM/250 ML BAG IV SCH (08:26)
--- NOTE | 2018-10-17 17:03 | P.PN ---
Subjective Date of Service: 10/17/18 Chief Complaint: Atrial fibrillation w/ RVR Patient seen and examined at bedside. Chart reviewed and case discussed with nursing staff. at bedside. Patient even more alert today, able to tell me her name and and where she is at, which she was not able to do yesterday. Almost back to her baseline. Sitting up in chair. Review of Systems 10-point ROS is otherwise unremarkable Physical Examination - Vital Signs Temperature: 97.7 F Blood Pressure: 156/79 Pulse: 101 Respirations: 24 Pulse Ox (%): 96 - Physical Exam General: Alert, In no apparent distress, Oriented x3 HEENT: Atraumatic, PERRLA, EOMI Neck: Supple, JVD not distended Respiratory: Clear to auscultation bilaterally, Normal air movement Cardiovascular: Regular rate/rhythm, Normal S1 S2 Gastrointestinal: Normal bowel sounds, No tenderness Musculoskeletal: No tenderness Integumentary: No rashes Neurological: Normal speech, Normal tone, Normal affect Lymphatics: No axilla or inguinal lymphadenopathy Assessment And Plan - Current Problems (Diagnosis) (1) Encephalopathy Current Visit: Yes Status: Acute Plan: Improving, almost back to baseline. DDx include infectious vs CVA vs progressive dementia vs "down" phase of bipolar disorder (per ) vs pain medications - Continue current IV antibiotics - CT of the head with some questionable areas. MRI/MRA ordered but Unable to be done even with ativan as patient could not lay flat on her back due to the decubitus ulcer. - Continue neuro checks and monitor mental status. - Per , patient more talkative at baseline. At my exam, pt more alert but not quite back to her baseline. She is now oriented x3 though. (2) Atrial fibrillation with rapid ventricular response Current Visit: Yes Status: Acute Plan: Patient now off cardene drip. Continues to be in NSR - Cardiology consulted. ECHO done, stable from prior. - Continue to monitor on tele (3) MRSA bacteremia Current Visit: Yes Status: Acute Plan: Patient with culture positive for MRSA on prior admission who was discharged 1 wk ago on Home IV Vancomycin. - We will continue IV vancomycin (4) Chronic diastolic (congestive) heart failure Current Visit: No Status: Chronic (5) TIA (transient ischemic attack) Onset Date: 05/30/15 Current Visit: No Status: Acute Plan: Patient with a prior hx of TIA/CVA? - MRI ordered, pending at this time. Qualifiers: (6) Sacral decubitus ulcer Current Visit: No Status: Chronic Plan: Patient of Dr. Kerns from wound care clinic - Wound care consulted, appreciated recommendations. - Continue offloading, air mattress - Nutrition consult for wound healing - She will continue outpatient wound care follow up after discharge. Qualifiers: Pressure injury stage: stage 4 Qualified Code(s): L89.154 - Pressure ulcer of sacral region, stage 4 (7) Malnutrition Current Visit: Yes Status: Chronic Qualifiers: Malnutrition type: protein-calorie malnutrition Protein-calorie malnutrition severity: moderate Qualified Code(s): E44.0 - Moderate protein- calorie malnutrition - Plan Plan: Pending imaging symptomatic improvement. Overall, patient seems to have a poor prognosis. Anticipate discharge back home in the next 24-48 hr. Patient refusing any facility at this time, and like to go home.
[2018-10-17] MEDS ORDERED: ALPRAZOLAM 0.5 MG TABLET PO ONE (20:29)
[2018-10-18] MEDS: TEMAZEPAM 15 MG CAP PO PRN (01:02)
[2018-10-18] MEDS: ACETAMINOPHEN 500 MG TAB PO PRN (07:51)
[2018-10-18] MEDS: JUVEN PACKET PO SCH ×2 (08:18→20:47)
[2018-10-18] MEDS: ASPIRIN EC 81 MG TAB PO SCH (08:18)
[2018-10-18] MEDS: ENSURE ENLIVE 237 ML CAN PO SCH ×2 (08:18→20:47)
[2018-10-18] MEDS: METOPROLOL TAR 50 MG TAB PO SCH ×2 (08:19→20:47)
[2018-10-18] MEDS: MEDIHONEY 44 ML TOPICAL TUBE TOP SCH (08:20)
--- NOTE | 2018-10-18 13:15 | P.PN ---
Subjective Date of Service: 10/18/18 Chief Complaint: Atrial fibrillation w/ RVR Subjective: Improving Patient seen and examined at bedside. Chart reviewed and case discussed with nursing staff. at bedside. Patient even more alert today, able to tell me her name and and where she is at, which she was not able to do yesterday. Almost back to her baseline. Sitting up in chair, eating. In no acute distress. States she would like to go home soon. Review of Systems 10-point ROS is otherwise unremarkable Physical Examination - Vital Signs Temperature: 97.7 F Blood Pressure: 145/92 Pulse: 75 Respirations: 24 Pulse Ox (%): 92 - Physical Exam General: Alert, In no apparent distress HEENT: Atraumatic, PERRLA, EOMI Neck: Supple, JVD not distended Respiratory: Clear to auscultation bilaterally, Normal air movement Cardiovascular: Regular rate/rhythm, Normal S1 S2 Gastrointestinal: Normal bowel sounds, No tenderness Musculoskeletal: No tenderness Integumentary: No rashes Neurological: Normal speech, Normal tone, Normal affect Lymphatics: No axilla or inguinal lymphadenopathy Assessment And Plan - Current Problems (Diagnosis) (1) Encephalopathy Current Visit: Yes Status: Acute Plan: Resolved, back to baseline. DDx include infectious vs CVA vs progressive dementia vs "down" phase of bipolar disorder (per ) vs pain medications - Continue current IV antibiotics - CT of the head with some questionable areas. MRI/MRA ordered but Unable to be done even with ativan as patient could not lay flat on her back due to the decubitus ulcer. - Continue neuro checks and monitor mental status. - reports, patient back to baseline. (2) Atrial fibrillation with rapid ventricular response Current Visit: Yes Status: Acute Plan: Patient now off cardene drip. Continues to be in NSR - Cardiology consulted. ECHO done, stable from prior. - Continue to monitor on tele (3) MRSA bacteremia Current Visit: Yes Status: Acute Plan: Patient with culture positive for MRSA on prior admission who was discharged 1 wk ago on Home IV Vancomycin. - We will continue IV vancomycin (4) Chronic diastolic (congestive) heart failure Current Visit: No Status: Chronic (5) TIA (transient ischemic attack) Onset Date: 05/30/15 Current Visit: No Status: Acute Plan: Patient with a prior hx of TIA/CVA? - MRI ordered, pending at this time. Qualifiers: (6) Sacral decubitus ulcer Current Visit: No Status: Chronic Plan: Patient of Dr. Kerns from wound care clinic - Wound care consulted, appreciated recommendations. - Continue offloading, air mattress - Nutrition consult for wound healing - She will continue outpatient wound care follow up after discharge. Qualifiers: Pressure injury stage: stage 4 Qualified Code(s): L89.154 - Pressure ulcer of sacral region, stage 4 (7) Malnutrition Current Visit: Yes Status: Chronic Qualifiers: Malnutrition type: protein-calorie malnutrition Protein-calorie malnutrition severity: moderate Qualified Code(s): E44.0 - Moderate protein- calorie malnutrition - Plan Plan: Pending symptomatic improvement. Overall, patient seems to have a poor prognosis. Anticipate discharge back home in the next 24-48 hr. Patient refusing any facility at this time, and like to go home.
[2018-10-18] MEDS: VANCOMYCIN/NS 1 gm 1 GM/250 ML BAG IV SCH (20:46)
[2018-10-19] MEDS: TEMAZEPAM 15 MG CAP PO PRN (00:31)
[2018-10-19] MEDS: JUVEN PACKET PO SCH (09:00)
[2018-10-19 09:16] VITALS: O2SAT 95
[2018-10-19] MEDS: METOPROLOL TAR 50 MG TAB PO SCH (09:52)
[2018-10-19] MEDS: ASPIRIN EC 81 MG TAB PO SCH (09:52)
[2018-10-19] MEDS: ENSURE ENLIVE 237 ML CAN PO SCH (09:53)
[2018-10-19] MEDS: MEDIHONEY 44 ML TOPICAL TUBE TOP SCH (09:55)
[2018-10-19 12:43] VITALS: BP 145/83; TEMP 97.7
--- NOTE | 2018-10-19 17:06 | P.DS ---
Admission Date: 10/14/18 Discharge Date: 10/19/18 Disposition: ROUTINE DISCHARGE Discharge Condition: FAIR Reason for Admission: Atrial fibrillation w/ RVR Consultations: Cardiology - Problems (1) Encephalopathy Status: Acute (2) Atrial fibrillation with rapid ventricular response Status: Acute (3) MRSA bacteremia Status: Acute (4) Chronic diastolic (congestive) heart failure Status: Chronic (5) TIA (transient ischemic attack) Onset Date: 05/30/15 Status: Acute Qualifiers: (6) Sacral decubitus ulcer Status: Chronic Qualifiers: Pressure injury stage: stage 4 Qualified Code(s): L89.154 - Pressure ulcer of sacral region, stage 4 (7) Malnutrition Status: Chronic Qualifiers: Malnutrition type: protein-calorie malnutrition Protein-calorie malnutrition severity: moderate Qualified Code(s): E44.0 - Moderate protein- calorie malnutrition Brief History of Present Illness: Patient is a 77-year-old female who was admitted to the hospital a week ago and diagnose with MRSA of a sacral decubitus ulcer. Patient was septic at that time and blood cultures revealed MRSA assay. Patient was discharged on IV vancomycin. This was just 1 week prior. Patient has been getting the IV vancomycin dose per home health. Patient neurologically is not that interactive. Patient's suffered a stroke a while back which has left her depending on her for most of her care. She came into the emergency room short of breath. Workup in the ER revealed atrial fibrillation with rapid ventricular response. Patient is on beta-amilcar. No anti coagulation because patient is a high risk for bleeding. Patient was started on a Cardizem drip. Recent echocardiogram did not reveal any significant abnormality. We started patient back on beta-amilcar and had weaned off the Cardizem. Currently on 2 mg and hopefully will give patient off very soon. Will Consult Cardiology for further input. Unsure as to if patient's patient's mentation is altered. from her old records and talking to the nursing staff she was not completely behaving in this manner. She would at least engage in some conversation. She is really isn't conversing at this time. This could be related to her becoming bacteremic. We may need further imaging as well. Hospital Course: Patient was admitted for acute encephalopathy, altered mental status with resolved and returned back to baseline. She differential diagnosis would include infectious versus CVA versus her progression of dementia versus bipolar disorder or this could have been all related to her pain medications that she does take at home. She was continued on her IV vancomycin for her MRSE bacteremia. CT of the head was done with some questionable areas. MRI MRA was ordered but he was unable to be done even when patient was given Ativan as patient could not lay flat on her back due to the decubitus ulcer. Slowly, her mentation did improve though. And a return back to baseline. She did have some atrial fibrillation with rapid ventricular response on admission and she was started on a Cardene drip. She was weaned off and continue to be normal sinus rhythm. Cardiology was consulted. An echocardiogram was done in which was stable from prior. She did complete a course of the vancomycin for 2 weeks , started 09/22/2018 for MRSA bacteremia. Therefore she did not need to be discharged home on more antibiotics at this time. She will continue to follow up with dr. Kerns in wound Care Clinic for her sacral decubitus ulcer. Overall , patient with a poor prognosis due to age, dementia and on multiple pain medications that she is taking at home. She did refuse disability at this time. She states that she is doing well with physical therapy and she does not need to go your but home. Her diagnoses and treatment plan explained to her, all questions were answered and she verbalized understanding. She was then discharged once they have been stable manner. Vital Signs/Physical Exam: Temp Pulse Resp BP Pulse Ox 97.7 F 68 22 H 145/83 H 99 10/19/18 12:00 10/19/18 12:00 10/19/18 12:00 10/19/18 12:00 10/19/18 12:00 General: Alert, In no apparent distress, Oriented x3, Cachectic HEENT: Atraumatic, PERRLA, EOMI Neck: Supple, JVD not distended Respiratory: Clear to auscultation bilaterally, Normal air movement Cardiovascular: Regular rate/rhythm, Normal S1 S2 Gastrointestinal: Normal bowel sounds, No tenderness Musculoskeletal: No tenderness Integumentary: No rashes Neurological: Normal speech, Normal tone, Normal affect Lymphatics: No axilla or inguinal lymphadenopathy Laboratory Data at Discharge: WBC 8.7 K/uL (4.3-10.9) 10/15/18 05:00 Hgb 9.5 g/dL (12.0-15.0) L 10/15/18 05:00 Hct 29.2 % (36.0-45.0) L 10/15/18 05:00 Plt Count 177 K/uL (152-406) 10/15/18 05:00 PT 17.8 SECONDS (9.5-12.5) H 10/13/18 21:15 INR 1.53 10/13/18 21:15 Sodium 132 mmol/L (136-145) L 10/17/18 04:15 Potassium 4.1 mmol/L (3.5-5.1) 10/17/18 04:15 BUN 24 mg/dL (7-18) H 10/17/18 04:15 Creatinine 1.01 mg/dL (0.55-1.3) 10/17/18 04:15 Glucose 112 mg/dL (74-106) H 10/17/18 04:15 Magnesium 2.0 mg/dL (1.8-2.4) 10/15/18 05:00 Phosphorus 2.8 mg/dL (2.5-4.9) 10/17/18 04:15 Total Bilirubin 1.0 mg/dL (0.2-1.0) 10/15/18 05:00 AST 19 U/L (15-37) 10/15/18 05:00 ALT 43 U/L (12-78) 10/15/18 05:00 Alkaline Phosphatase 70 U/L (45-117) 10/15/18 05:00 Troponin I 0.02 ng/mL (0.0-0.045) 10/14/18 13:53 Home Medications: Furosemide 40 mg PO DAILY 10/03/18 Levothyroxine Sodium 1 tab PO DAILY 10/03/18 Metoprolol Tartrate [Lopressor] 50 mg PO BID 10/03/18 Potassium Chloride 10 meq PO DAILY 10/03/18 Aspirin [Aspirin EC 81 MG] 81 mg PO DAILY #30 tablet. 10/07/18 Ascorbic Acid [Vitamin C] 1,000 mg PO DAILY 10/14/18 Medihoney [Medihoney Woundcare Gel*] 1 appl TOP DAILY #1 tube 10/19/18 New Medications: Medihoney [Medihoney Woundcare Gel*] 1 appl TOP DAILY #1 tube Patient Discharge Instructions: Please follow up with primary care physician in 2-3 days. Please follow up with Dr. Shine in 2 weeks. Return to the Emergency room for worsening symptoms. Diet: AHA Activity: Ad cristian Followup: Lee Shine MD [ACTIVE - CAN ADMIT] - (call to schedule appointment) Ronnie Lawton DO, DO [Primary Care Provider] - (call to schedule appointment ) Time spent managing pt's care (in minutes): 55
== END 2018-10-19 14:32 | disposition home health service (06) | DRG 308 ==
LOC: ER 21:04 → ERHOLD 10-14 00:30 → 3RD-ICU 10-14 01:07 → 4TH 10-14 20:40
PROVIDERS: ADMIT Hospitalist; ATTEND Family Medicine
DX: I48.2 Chronic atrial fibrillation (principal); L89.154 Pressure ulcer of sacral region, stage 4; R78.81 Bacteremia; I50.32 Chronic diastolic (congestive) heart failure; G93.40 Encephalopathy, unspecified; E44.0 Moderate protein-calorie malnutrition; R64 Cachexia; Z68.1 Body mass index [BMI] 19.9 or less, adult; B95.62 Methicillin resistant Staphylococcus aureus infection as the cause of diseases classified elsewhere; R33.9 Retention of urine, unspecified; I11.0 Hypertensive heart disease with heart failure; E83.119 Hemochromatosis, unspecified; Z87.891 Personal history of nicotine dependence; Z86.73 Personal history of transient ischemic attack (TIA), and cerebral infarction without residual deficits
CPT/HCPCS: 36415; 70450; 71045; 80048; 80053; 80076; 80202; 81003; 81015; 82962; 83605; 83735; 83880; 84100; 84132; 84484; 85025; 85610; 87086; 87088; 93005; 93306; 96374; 96375; 97112; 97116; 97161; 97530; 99251; 99285; J1940; J3370; J3475

== ENCOUNTER 2018-12-11 08:55 | Day surgery (SDC) | payer MEDICARE ==
--- NOTE | 2018-12-10 12:47 | RAD REPORT ---
EXAM DESCRIPTION: RAD - Chest Pa And Lat (2 Views) - 12/10/2018 12:42 pm CLINICAL HISTORY: preop Chest pain. COMPARISON: Chest Single View dated 10/13/2018; Chest Single View dated 10/06/2018; Chest Single View dated 10/02/2018; Chest Single View dated 10/02/2018 FINDINGS: The lungs are emphysematous but clear. Mild pleural thickening is seen in both apices, chr onic in appearance. Moderate cardiomegaly is seen. No displaced fractures.
[2018-12-10 13:03] LABS: Absolute Lymphocytes (CBC) 1.1 K/uL (0.7-4.9); Basophils % 0.9 % (0-1.3); MPV 8.4 fL (7.6-11.3); RBC Red Blood Cell Count 3.32 M/uL (3.86-4.86)
[2018-12-10 13:05] LABS: Potassium 3.5 mmol/L (3.5-5.1)
[2018-12-10 17:05] LABS: Blood Morphology Comment NOT SEEN (NOT SEEN); Platelet Estimate ADEQ; Urine White Blood Cell Casts OK
[2018-12-11] MEDS ORDERED: CEFAZOLIN/SWI 1gm 1 GM/10 ML SYR ONE (09:04)
[2018-12-11] MEDS ORDERED: Ringers Lactate 1,000 ML IV ONE (09:04)
[2018-12-11] MEDS ORDERED: BUPIVACAINE 0.5% PF 10 ML VIAL ONE (10:24)
[2018-12-11] MEDS ORDERED: LIDOCAINE 2% MPF 5 ML VIAL ONE (10:43)
[2018-12-11] MEDS ORDERED: PROPOFOL 200 MG/20 ML VIAL IV ONE (10:43)
[2018-12-11] MEDS ORDERED: MIDAZOLAM HCL 2 MG/2 ML INJ ONE ×2 (10:43→11:55)
[2018-12-11] MEDS ORDERED: ROCURONIUM 50 MG/5 ML VIAL IV ONE (10:43)
[2018-12-11] MEDS ORDERED: ONDANSETRON 4 MG/2 ML VIAL ONE (10:43)
[2018-12-11] MEDS ORDERED: COLLAGENASE 30 GM OINTMENT TOP ONE (10:55)
[2018-12-11] MEDS ORDERED: FENTANYL CITR 100 MCG/2 ML ONE (11:17)
[2018-12-11] MEDS: MORPHINE 4 MG/ML SYR ONE ×4 (11:27→11:50)
[2018-12-11] MEDS ORDERED: HYDROMORPHONE HCL 1 MG/ML INJ ONE (11:52)
--- NOTE | 2018-12-11 12:04 | OP ---
Date of Procedure: 12/11/2018 Surgeon: Gab Kerns MD Preoperative Diagnosis: Sacral decubitus, infected. Postoperative Diagnosis: Sacral decubitus, infected. Procedure: Excisional debridement of sacral decubitus, 6 x 4 cm to subcutaneous tissue and muscle. Estimated Blood Loss: Minimal. Specimen: Infected tissue. Finding: As above. Anesthesia: MAC. Complications: None. Disposition: Patient tolerated the procedure in stable condition, taken to Recovery in good general condition. Procedure In Detail: The patient was brought to the OR, and placed in supine position. MAC anesthes ia was begun. The patient placed in left lateral position, prepped and draped in usual sterile fashi on. Marcaine 0.5% was infiltrated locally with 15 blade and sharp dissection utilized to excise the edges of the wound for viable healthy tissue. It was necrotic. Fibrin infected in the center, this w as all debrided down through the subcutaneous tissue and muscle with cautery and the cultures were se nt of infected tissue. Wound was irrigated. Bleeding controlled with cautery, collagenase wet-to-dr y, normal saline dressing change applied. Patient tolerated the procedure well in stable condition, taken to Recovery in good general condition. Discharge Note: The patient will go to day surgery and home when stable. Disposition: Home. Condition: Stable. Discharge Instructions: Resume home medications and diet. Activity as tolerated. No heavy lifting. Remove outer dressing in the a.m. and wet-to-dry collagenase dressing as ordered. Patient has home health. Tylenol No. 3 one tablet p.o. q.4 p.r.n. pain. Cipro 500 mg p.o. q.12 hours. /MODL Voice ID: [id number] Report ID: [id number]
[2018-12-11 14:14] VITALS: TEMP 97.4; O2SAT 95
[2018-12-11 14:15] VITALS: BP 104/48
== END 2018-12-11 14:00 | disposition home or self-care (01) ==
LOC: OR 08:55
PROVIDERS: ATTEND Surgery
PROC: 0JB70ZZ Excision of Back Subcutaneous Tissue and Fascia, Open Approach (ICD-10-PCS; principal; 2018-12-11 10:45)
DX: L89.154 Pressure ulcer of sacral region, stage 4 (principal); I48.91 Unspecified atrial fibrillation; I50.9 Heart failure, unspecified; E03.9 Hypothyroidism, unspecified; Z86.73 Personal history of transient ischemic attack (TIA), and cerebral infarction without residual deficits; Z87.891 Personal history of nicotine dependence; Z90.49 Acquired absence of other specified parts of digestive tract
CPT/HCPCS: 87070 ×2; 85025; 80048; 36415; 87205 ×2; 87075; 87077 ×2; 87186 ×2; 87176; 71046; 11042; 11045; J2704; J2250 ×2; J3010; J1170; J0690; 99213; J2405; J3590

== ENCOUNTER 2018-12-16 16:26 | Inpatient (IN) | payer MEDICARE ==
[2018-12-16 16:44] LABS: Absolute Lymphocytes (CBC) 0.9 K/uL (0.7-4.9); Basophils % 0.3 % (0-1.3); Hematocrit 32.3 % (36.0-45.0); Lymphocytes % 9.5 % (15.3-44.8); MPV 8.3 fL (7.6-11.3); RBC Red Blood Cell Count 3.89 M/uL (3.86-4.86)
[2018-12-16] MEDS ORDERED: NA CHLORIDE 0.9% 1,000 ML ONE (16:44)
[2018-12-16] MEDS ORDERED: levETIRAcetam 1,000 MG in NA CHLORIDE 0.9% 100 ML IV ONE (16:45)
[2018-12-16] MEDS ORDERED: RSI MEDICATION KIT IV ONE (16:50)
--- NOTE | 2018-12-16 17:00 | RAD REPORT ---
EXAM DESCRIPTION: CT - Head C Spine Cap Wo Con - 12/16/2018 4:36 pm CLINICAL HISTORY: Trauma, head and neck injury. Chest, abdomen and pelvis pain. sz COMPARISON: No comparisonsHead Brain Wo Cont dated 08/10/2018 TECHNIQUE: CT head without contrast. CT cervical spine without contrast with coronal and sagittal reformatted images. CT chest, abdomen and pelvis without contrast with coronal and sagittal reformatted images of the spi ne. All CT scans are performed using dose optimization technique as appropriate and may include automated exposure control or mA/KV adjustment according to patient size. FINDINGS: CT HEAD WITHOUT CONTRAST: No intracranial hemorrhage, hydrocephalus or extra-axial fluid collection. Moderate generalized brain atrophy is present with moderate periventricular and deep white matter chronic microvascular ischemi c changes. Gliosis from prior infarct suspected left occipital lobe. The paranasal sinuses and mastoids are clear. The calvarium is intact. CT CERVICAL SPINE WITHOUT CONTRAST: No fracture or subluxation. 2 mm degenerative anterolisthesis of C3 on 4 is present. Mild spondylosis is present at lower cervical levels. The prevertebral soft tissues are normal in thickness. CT CHEST, ABDOMEN, PELVIS WITHOUT CONTRAST: NOTE: Lack of contrast is a significant limitation in the assessment of trauma related findings. Spec ifically, solid organ, vascular and bowel evaluation is significantly limited. The lungs are clear.Cholecystectomy clips.No pneumothorax or pericardial/pleural fluid. No evidence of intra-abdominal visceral injury, free fluid or free air is seen within the above detai led limitations. No concerning pelvic findings. Osteopenia with mild lower lumbar degenerative changes. IMPRESSION: Negative for acute traumatic findings within the above detailed limitations.
[2018-12-16 17:02] LABS: Potassium 3.7 mmol/L (3.5-5.1)
[2018-12-16 17:13] LABS: Protime INR 2.19
--- NOTE | 2018-12-16 17:15 | ER ---
Nurse's Notes [facility] Name: Laila Johnson Age: 78 yrs Sex: Female : 1940 Arrival Date: 12/16/2018 Time: 16:27 Bed 3 Private MD: Diagnosis: Seizures;Acute kidney failure Presentation: 12/16 16:24 Transition of care: patient was not received from another setting of care. Onset of ss symptoms was December 16, 2018. Risk Assessment: Do you want to hurt yourself or someone else? Unable to obtain. Initial Sepsis Screen: Does the patient have a suspected source of infection? No. Patient's initial sepsis screen is negative. 16:24 Method Of Arrival: EMS: [facility] 16:24 Acuity: LUCIE 1 16:30 Presenting complaint: EMS states: last saw patient "normal" before going to the sg store, came home to find pt responding only to painful stimuli. In route to the facility pt seized and became less responsive. Initial Sepsis Screen: Does the patient meet any 2 criteria? Altered Mental Status. HR > 90 bpm. Yes Does the patient have a suspected source of infection? No. Patient's initial sepsis screen is negative. 16:30 Care prior to arrival: Medication(s) given: Ativan 2 mg IM IV attempt. sg Triage Assessment: 16:30 General: Appears distressed, ill, slender, well groomed, well developed, well sg nourished, Behavior is quiet, unresponsive. Pain: Unable to use pain scale. Does not appear to understand pain scale. Historical: - Allergies: 18:34 No Known Allergies; sg - PMHx: 16:33 Anemia; Atrial Fib; Cellulitis; hemachromotosis; Migraines; stroke 2013; ss - PSHx: 16:33 Unable to obtain; ss - Immunization history:: Adult Immunizations not up to date. - Social history:: Smoking status: unknown. - Ebola Screening: : Unable to complete screening because. Screenin:30 Fall Risk None identified. sg 16:38 Abuse screen: unable to complete, patient is responsive to painful stimuli only. ss Nutritional screening: unable to complete. Tuberculosis screening:. Assessment: 16:30 Reassessment: Pt to CT at this time VIA stretcher, on monitors. Accompanied by Keanu Harrison RN, TIMOTHY Mayfield, Dr. Benito Parekh, Kathrine, RT and phlebotomy services technician. Respiratory: Respiratory effort is even, unlabored, NRB in place at 15L/ min. 16:45 Reassessment: pt seizing while in CT with staff, orders received to administer Ativan 2 sg mg IVP, and Nilton AGUIRRE at bedside at this time. 16:50 General: Appears distressed. Cardiovascular: Heart tones S1 S2 present Capillary refill sg is sluggish in bilateral fingers Rhythm is atrial fibrillation. Respiratory: Respiratory effort is even, relaxed, shallow, Respiratory pattern is symmetrical, hypoventilation Breath sounds are clear bilaterally. GI: Abdomen is round non-distended. : Genitalia appear normal. Derm: Skin is mottled, pale. Derm: Skin is fragile, is thin, has skin tears on noted to the left forearm, large. instructed to apply skin back over tear area and apply wet to dry dressing by Nilton AGUIRRE Skin temperature is cool. Injury Description:. 16:59 Neuro: Level of Consciousness is unresponsive, Nilton AGUIRRE elected to intubate pt due to sg drastic change in pt mental status. 17:07 Reassessment: pt remains intubated, on ventilator, no seizure activity noted, pt iw remains tachycardic at 134 bpm, family updated on POC, Consult to Dr. Samayoa by TIMOTHY Callaway. 17:55 Reassessment: irrigated left forearm skin tear area with NS and Chlorhexidine solution sg a wet to dry dressing applied to left forearm per verbal order from Tara AGUIRRE. 18:18 Reassessment: pt family at bedside at this time. beverly 18:20 Reassessment: pt family reports "she had a fall earlier today and banged her head but sg seemed ok. so i went off to the store to get somethings, when i got back home she just wasn't in good shape, wouldn't really talk to me.". 18:34 Reassessment: pt to be transported to ICU after shift change, report given to Megan paul RN, awaiting STUNT WOMAN for transport to ICU. 18:35 Reassessment: pt reports the patient is currently being treated for stage 4 sg decub to the sacrum, and is abx, "vancomycin or something" per pt spouse believes. a dressing is noted to the sacrum that is dry and intact at this time, pt reports home health staff dresses the wound as ordered. 18:40 Reassessment: pt transported to ICU with Kathrine VAZQUEZ and myself. sg Vital Signs: 16:27 BP 133 / 80; Pulse 155; Resp 14; Temp 98.4; Pulse Ox 100% on R/A; ss 16:58 BP 109 / 56; Pulse 139; ss 17:05 BP 103 / 74; Pulse 141; Resp 16 A; Pulse Ox 98% on ETT vent; Pain 0/10; iw 17:30 BP 111 / 84; Pulse 131 MON; Resp 18 A; Pulse Ox 100% on 100% FiO2 ETT vent; sg 18:00 BP 111 / 89; Pulse 118 MON; Resp 16 A; Pulse Ox 100% on 100% FiO2 ETT vent; sg 18:22 BP 105 / 88; Pulse 108 MON; Resp 12 A; Pulse Ox 100% on 60% FiO2 ETT vent; sg 18:25 Weight 61.23 kg; Height 5 ft. 6 in. (167.64 cm); sg 18:25 Body Mass Index 21.79 (61.23 kg, 167.64 cm) sg ED Course: 16:27 Patient arrived in ED. sg 16:27 Patient has correct armband on for positive identification. vehicle monitor technician on. Pulse ss ox on. NIBP on. 16:30 Inserted saline lock: 22 gauge in right upper arm, using aseptic technique. ,using ss aseptic technique. Insertion by Shira Winkler RN Blood collected. Oxygen administration via non-rebreather mask \\T\\ 15L/min. 16:30 Arm band placed on. sg 16:33 Triage completed. ss 16:37 CT Traumagram (Head C Spine CAP wo con) In Process Unspecified. EDMS 16:44 Nilton Gil PA is PHCP. jr8 16:44 Benito Parekh MD is Attending Physician. jr8 17:13 EKG done, by information technology professor. reviewed by Nilton AGUIRRE. sm3 17:14 Tierney Santoro MD is Hospitalizing Provider. jr8 17:20 14 F OG tube inserted by Keanu Harrison RN. Placement verified by Auscultation and gastric ss contents. 17:34 CXR XRAY In Process Unspecified. EDMS 17:42 Assisted provider with central line placement. Set up central line tray. Triple lumen sg line placed in right femoral. Line placed by Nilton AGUIRRE Placement verified by blood return, Dressed with Tegaderm, Blood was collected. Patient tolerated well. Before procedure, did Practitioner(s) obtain informed consent? No. Patient \\T\\ family education about procedure, CLABSI prevention and S/S of infection? No. Time-out/Briefing performed prior to start of procedure? Yes. Was handwashing/sanitizing done immediately prior to procedure? Yes. Was patient positioned to in a way to prevent air embolism? Yes. Was procedure site sterilized? Yes, with chlorhexidine. Was the site allowed to dry? Yes. Was local anesthetic and/or sedation utilized? Yes. During the procedure, did the Practitioner(s) maintain a sterile field? Yes. Were unused ports clamped during insertion? Yes. Was a 2nd qualified MD obtained after 3 unsuccessful insertion attempts? No. Was blood aspirated from each lumen? Yes. After the procedure, did the Practitioner(s) clean the site and apply a sterile dressing? Yes. First set of blood cultures drawn by ED staff. Second set of blood cultures drawn by ED staff. 18:00 Hallman cath inserted, using sterile technique, 16 Fr., by oh, balloon inflated, to sg gravity drainage, urine specimen collected. returned 300 mL. 18:15 Keanu Harrison, RN is Primary Nurse. sg 18:20 Warm blanket given. Head of bed elevated. sg 18:21 Lab- Ashlee for add on of Procalcitonin, to be ran off of initial blood draw per Ashlee. sg 18:26 Patient admitted, IV remains in place. intact, No redness/swelling at site. sg Administered Medications: 08:00 Drug: Versed 2 mg Route: IVP; Site: right femoral; sg 16:38 Drug: Ativan 2 mg {Note: Administered by Keanu Harrison RN.} Route: IVP; Site: right upper ss arm; 16:45 Drug: Ativan 2 mg {Note: Administered by Keanu Harrison RN.} Route: IVP; Site: right upper ss arm; 16:48 Drug: NS 0.9% 1000 ml Route: IV; Rate: 1000 ml; Site: right upper arm; ss 16:50 Drug: Keppra 1000 mg Route: IV; Rate: calculated rate; Site: right upper arm; 16:56 Drug: Etomidate 10 mg Route: IVP; Site: right upper arm; 16:57 Drug: VecuroNIUM 10 mg Route: IVP; Site: right upper arm; Outcome: 17:14 Decision to Hospitalize by Provider. jrReena 18:50 Condition: stable sg 18:50 Instructed on the need for admit, Demonstrated understanding of instructions. 18:50 Admitted to Report called to bedside report given to Angelina RN, Billie RN, Megan RN sg 18:50 Discharge instructions given to family. sg 18:52 Admitted to ICU accompanied by nurse, family with patient, via stretcher, room 7, with sg oxygen, on monitor, with chart. 18:55 Patient left the ED. iw Signatures: Dispatcher [employer] EDMS Keanu Harrison, RN Shira Elizalde RN RN Lorena Ferreira RN RN Nilton Gil PA PA jr8 Jojo Wu sm3 Corrections: (The following items were deleted from the chart) 16:38 16:30 Reassessment: Pt to CT at this time VIA stretcher, on monitors. Accompanied by ss Keanu Harrison RN, TIMOTHY Mayfield, Dr. Benito Parekh, and phlebotomy services technician 18:34 16:33 Allergies: Unable to obtain; [facility] 12/17 14:12 10 17:40 Reassessment: [facility] 12/17 14:13 10 17:55 Reassessment: irrigated right forearm skin tear area with NS and sg Chlorhexidine solution a wet to dry dressing applied to right forearm per verbal order from Tara AGUIRRE. 12/17 14:13 10 17:55 Reassessment: irrigated right forearm skin tear area with NS and sg Chlorhexidine solution a wet to dry dressing applied to left forearm per verbal order from Tara AGUIRRE. 12/17 14:18 12/16 18:35 Reassessment: pt reports the patient is currently being treated for sg stage 4 decub to the sacrum, and is abx, vancomycin pt spouse believes. a dressing is noted to the sacrum that is dry and intact at this time, pt reports home health staff dresses the wound as ordered 12/17 13:12/16 18:50 Discharged to home ambulatory, sg sg 12/17 1412/16 18:50 Condition: good sg sg
--- NOTE | 2018-12-16 17:15 | EDPHYS ---
[facility] Name: Laila Johnson Age: 78 yrs Sex: Female : 1940 Arrival Date: 12/16/2018 Time: 16:27 Bed 3 Private MD: ED Physician Benito Parekh HPI: 12/16 17:52 This 78 yrs old Female presents to ER via EMS with complaints of Seizure. jr8 17:52 Seizure onset: just prior to arrival. Context: the seizure(s) was witnessed, by EMS jr8 personnel, occurred in back of ambulance, Contributing factors: recent fall. Seizure Hx: the patient has no previous seizure history. EMS care: Ativan, IM, with minimal improvement, supplemental oxygen. Current symptoms: decreased level of consciousness, is arousable but tired. Called out for unwitnessed fall. Fall occurred about one hour prior to EMS arrival. En route to hospital pt began seizing, has no history of seizures. Upon arrival to ED pt is post-ictal. Historical: - Allergies: 18:34 No Known Allergies; sg - PMHx: 16:33 Anemia; Atrial Fib; Cellulitis; hemachromotosis; Migraines; stroke 2013; ss - PSHx: 16:33 Unable to obtain; ss - Immunization history:: Adult Immunizations not up to date. - Social history:: Smoking status: unknown. - Ebola Screening: : Unable to complete screening because. ROS: 17:54 Unable to obtain ROS due to patient's inability to understand questions, patient is on jr8 ventilator. Exam: 17:54 Constitutional: Pt is sedated, intubated and on ventilator. Head/Face: jr8 Normocephalic, atraumatic. Eyes: Pupils equal round and reactive to light, extra-ocular motions intact. Lids and lashes normal. Conjunctiva and sclera are non-icteric and not injected. Cornea within normal limits. Periorbital areas with no swelling, redness, or edema. ENT: Nares patent. No nasal discharge, no septal abnormalities noted. Tympanic membranes are normal and external auditory canals are clear. Oropharynx with no redness, swelling, or masses, exudates, or evidence of obstruction, uvula midline. Mucous membranes moist. Neck: Trachea midline, no thyromegaly or masses palpated, and no cervical lymphadenopathy. Supple Chest/axilla: Normal chest wall appearance and motion. Nontender with no deformity. No lesions are appreciated. Cardiovascular: rapid rate and rhythm with a normal S1 and S2. No gallops, murmurs, or rubs. Normal PMI, no JVD. No pulse deficits. Respiratory: Lungs have equal breath sounds bilaterally, clear to auscultation. No rales, rhonchi or wheezes noted. Abdomen/GI: Soft, non-tender, with normal bowel sounds. No distension or tympany. No guarding or rebound. No evidence of tenderness throughout. 17:54 Eyes: Pupils: equal, round, and reactive to light and accomodation, right pupil is approximately 2 mm(s), left pupil is approximately 2 mm(s). 17:54 Cardiovascular: Rate: tachycardic, actual rate is 141 bpm, Pulses: no pulse deficits are appreciated, Pulses are 3+ in right radial artery and left radial artery. 17:54 Respiratory: Breath sounds: are clear throughout. Vital Signs: 16:27 BP 133 / 80; Pulse 155; Resp 14; Temp 98.4; Pulse Ox 100% on R/A; ss 16:58 BP 109 / 56; Pulse 139; ss 17:05 BP 103 / 74; Pulse 141; Resp 16 A; Pulse Ox 98% on ETT vent; Pain 0/10; iw 17:30 BP 111 / 84; Pulse 131 MON; Resp 18 A; Pulse Ox 100% on 100% FiO2 ETT vent; sg 18:00 BP 111 / 89; Pulse 118 MON; Resp 16 A; Pulse Ox 100% on 100% FiO2 ETT vent; sg 18:22 BP 105 / 88; Pulse 108 MON; Resp 12 A; Pulse Ox 100% on 60% FiO2 ETT vent; sg 18:25 Weight 61.23 kg; Height 5 ft. 6 in. (167.64 cm); sg 18:25 Body Mass Index 21.79 (61.23 kg, 167.64 cm) sg Procedures: 17:46 Intubation: Ventilated with 100% NRB prior to procedure. O2 saturation prior to jr8 procedure was 100 %. Intubated orally using # 3 Nydia blade with 7.5 mm ETT. was successful on first attempt. Ventilated with Ambu bag. ventilator. Cricoid pressure applied during procedure. Tube secured with ETT matos at center of mouth measured 23 cm at lip. Placement verified by CXR, CO2 detector with (+) color change, auscultating bilateral breath sounds, O2 saturation after procedure was 100 %. Patient tolerated well. Central Line: the site was prepped with Betadine, in sterile fashion, a triple lumen catheter was inserted, in the right femoral vein, in 1 attempts. placement was verified, by blood return, the site was dressed with 4X4s, Tegaderm, foam tape, using sterile technique, the patient tolerated the procedure, well. MDM: 16:44 Patient medically screened. jr8 17:13 Data reviewed: vital signs, nurses notes, lab test result(s), EKG, radiologic studies, jr8 CT scan, plain films. Data interpreted: Pulse oximetry: on room air is 98 %. Interpretation: normal. Counseling: I had a detailed discussion with the patient and/or guardian regarding: the historical points, exam findings, and any diagnostic results supporting the discharge/admit diagnosis, lab results, radiology results, the need for further work-up and treatment in the hospital. Physician consultation: Tierney Santoro MD was called at 17:13, was contacted at 17:13, regarding admission, to the ICU, consult, patient's condition, and will see patient. ED course: Dr. Samayoa consulted and will see patient . 18:00 ED course: Upon arrival to ED department pt was post-ictal, she became arousable after jr8 a few minutes and was able to follow commands. During that time she was unable to move her left arm or leg but could move her right arm and leg. Pt taken to CT for trauma gram without. On the way to CT pt began seizing again, given ativan and images obtained, pt began seizing again upon arrival back to trauma bay and decision to intubate was made in order to protect the patients airway. . 12/16 16:28 Order name: NOVA; Complete Time: 17:45 sg 12/16 16:28 Order name: Basic Metabolic Panel; Complete Time: 17:05 sg 12/16 16:28 Order name: CBC with Diff sg 12/16 16:28 Order name: Creatinine for Radiology; Complete Time: 17:00 sg 12/16 16:28 Order name: Type And Screen; Complete Time: 17:41 sg 12/16 16:45 Order name: LFT's; Complete Time: 17:41 8 12/16 16:45 Order name: Magnesium; Complete Time: 17:41 8 12/16 16:45 Order name: NT PRO-BNP; Complete Time: 17:41 jr8 12/16 16:45 Order name: PT-INR; Complete Time: 17:41 jr8 12/16 16:45 Order name: Troponin (emerg Dept Use Only); Complete Time: 17:41 8 12/16 18:02 Order name: ABG bd 12/16 18:02 Order name: Blood Culture Adult (2) 12/16 18:02 Order name: Procalcitonin 12/16 18:09 Order name: Urine Dipstick--Ancillary (enter results) 12/16 16:27 Order name: CT Traumagram (Head C Spine CAP wo con); Complete Time: 17:05 12/16 16:28 Order name: Labs collected and sent; Complete Time: 16:32 12/16 16:45 Order name: EKG; Complete Time: 16:47 8 12/16 16:45 Order name: Cardiac monitoring; Complete Time: 17:12 jr8 12/16 16:45 Order name: EKG - Nurse/Tech; Complete Time: 17:12 8 12/16 16:45 Order name: IV Saline Lock; Complete Time: 17:12 8 12/16 16:45 Order name: O2 Per Protocol; Complete Time: 17:12 jr8 12/16 17:26 Order name: CXR XRAY; Complete Time: 17:45 12/16 16:45 Order name: O2 Sat Monitoring; Complete Time: 17:12 8 Administered Medications: 08:00 Drug: Versed 2 mg Route: IVP; Site: right femoral; sg 16:38 Drug: Ativan 2 mg {Note: Administered by Keanu Harrison RN.} Route: IVP; Site: right upper ss arm; 16:45 Drug: Ativan 2 mg {Note: Administered by Keanu Harrison RN.} Route: IVP; Site: right upper ss arm; 16:48 Drug: NS 0.9% 1000 ml Route: IV; Rate: 1000 ml; Site: right upper arm; ss 16:50 Drug: Keppra 1000 mg Route: IV; Rate: calculated rate; Site: right upper arm; ss 16:56 Drug: Etomidate 10 mg Route: IVP; Site: right upper arm; ss 16:57 Drug: VecuroNIUM 10 mg Route: IVP; Site: right upper arm; ss Disposition: 12/16/18 17:14 Hospitalization ordered by Tierney Santoro for Inpatient Admission. Preliminary diagnosis are Seizures, Acute kidney failure. - Bed requested for Intensive Care Unit. - Status is Inpatient Admission. iw - Condition is Fair. - Problem is new. - Symptoms have improved. UTI on Admission? No Critical care time excluding procedures: 17:46 Critical care time: Bedside Care: 20 minutes, Consultation: 15 minutes, Family jr8 Intervention: 10 minutes. Total time: 45 minutes Addendum: 12/19/2018 07:00 Co-signature as Attending Physician, Benito Parekh MD. r n Signatures: Dispatcher [employer] EDJustina Mayers RN RN Keanu Harrison RN JUAN JOSÉ Shira Winkler RN RN Benito Parekh MD MD rn Smirch, Shelby, RN RN Nilton Gil PA PA jr8 Andrea Leblancriella Corrections: (The following items were deleted from the chart) 12/16 17:19 17:14 Hospitalization Ordered by Tierney Santoro MD for Inpatient Admission. Preliminary jr8 diagnosis is Seizures. Bed requested for Intensive Care Unit. Status is Inpatient Admission. Condition is Fair. Problem is new. Symptoms have improved. UTI on Admission? No. jr8 18:24 17:19 12/16/2018 17:14 Hospitalization Ordered by Tierney Santoro MD for Inpatient gm Admission. Preliminary diagnosis is Seizures; Acute kidney failure. Bed requested for Intensive Care Unit. Status is Inpatient Admission. Condition is Fair. Problem is new. Symptoms have improved. UTI on Admission? No. jr8 18:24 18:24 12/16/2018 17:14 Hospitalization Ordered by Tierney Santoro MD for Inpatient dw Admission. Preliminary diagnosis is Seizures; Acute kidney failure. Bed requested for Intensive Care Unit. Status is Inpatient Admission. Condition is Fair. Problem is new. Symptoms have improved. UTI on Admission? No. gm 18:34 16:33 Allergies: Unable to obtain; [facility] 18:55 18:24 12/16/2018 17:14 Hospitalization Ordered by Tierney Santoro MD for Inpatient iw Admission. Preliminary diagnosis is Seizures; Acute kidney failure. Bed requested for Intensive Care Unit. Status is Inpatient Admission. Condition is Fair. Problem is new. Symptoms have improved. UTI on Admission? No. dw
[2018-12-16 17:29] LABS: Albumin 3.5 g/dL (3.4-5.0); Bilirubin Direct 0.8 mg/dL (0-0.2); Bilirubin Total 1.4 mg/dL (0.2-1.0); Magnesium 2.2 mg/dL (1.8-2.4); Protein, Total 7.4 g/dL (6.4-8.2); Troponin (Emerg Dept Use Only) 0.03 ng/mL (0.0-0.045)
--- NOTE | 2018-12-16 17:43 | RAD REPORT ---
EXAM DESCRIPTION: RAD - Chest Single View - 12/16/2018 5:33 pm CLINICAL HISTORY: post intubation Chest pain. COMPARISON: Chest Pa And Lat (2 Views) dated 12/10/2018; Chest Single View dated 10/13/2018; Chest Sin gle View dated 10/06/2018; Chest Single View dated 10/02/2018 FINDINGS: Portable technique limits examination quality. Tip of the ET tube is above the anh. Enteric tube descends into the stomach. Emphysematous changes are present throughout the lungs. The heart is moderately enlarged.
[2018-12-16 18:10] LABS: Arterial Blood Carboxyhemoglob 1.3 % (0-1.5); Blood Gas Oxyhemoglobin 98.4 % (94-97)
--- NOTE | 2018-12-16 18:30 | P.HP ---
Certification for Inpatient Patient admitted to: Inpatient With expected LOS: >2 Midnights Practitioner: I am a practitioner with admitting privileges, knowledge of patient current condition, hospital course, and medical plan of care. Services: Services provided to patient in accordance with Admission requirements found in Title 42 Section 412.3 of the Code of Federal Regulations Patient History Date of Service: 12/16/18 Reason for admission: Seizure History of Present Illness: This is a 78-year-old female with multiple medical problems, including atrial fibrillation, recent MRSA bacteremia, sacral decubitus ulcer, TIA/stroke who was brought to the emergency room by EMS for a seizure. Per , she was found down when he came home, when he talked to her she was responding well, EMS was called and they help transfer to the bed. Patient was back to baseline. Therefore EMS left. At home health nurse came to check out her decubitus ulcer and take care of the wound. At that time, there was a witnessed seizure therefore EMS was called again. At that time, the patient was brought to the emergency room. In the ER, patient was intubated to help protect her airways. Blood pressure was 133/80, heart rate of 155, in atrial fibrillation, respirations 14, afebrile and she was intubated and vented. Her labs remarkable for INR of 2.19 , sodium low at 130, creatinine elevated to 2.29, elevated total bili and direct bili. Her CT spine/head/trauma brown was negative for anything acute. Chest x-ray was with the ET tube in place, with emphysematous changes. At the time of my exam, patient was intubated and sedated, hemodynamically was stable. Allergies No Known Allergies Allergy (Verified 12/10/18 12:09) Home medications list reviewed: Yes Home Medications: Furosemide 40 mg PO DAILY 10/03/18 Levothyroxine Sodium 1 tab PO DAILY 10/03/18 Metoprolol Tartrate [Lopressor] 50 mg PO BID 10/03/18 Potassium Chloride 10 meq PO DAILY 10/03/18 Aspirin [Aspirin EC 81 MG] 81 mg PO DAILY #30 tablet. 10/07/18 Ascorbic Acid [Vitamin C] 1,000 mg PO DAILY 10/14/18 Medihoney [Medihoney Woundcare Gel*] 1 appl TOP DAILY #1 tube 10/19/18 ALPRAZolam [Xanax] 2 mg PO BID PRN 12/10/18 - Past Medical/Surgical History Diabetic: No -: Stroke(2013) -: Chronic Back Pain -: TMJ(Severe) -: AFIB -: bacterial meningitis(september 2013) -: hemochromotosis -: anemia -: HTN -: jamil -: breast sx ( left) cyst removed -: sinus sx -: varicose vein surgery -: tubal ligation -: vein surgery 36 years old Psychosocial/ Personal History: Patient smoked 1/2ppd for 35 years. Quit 20 years ago.She lives with her husbandHas all her primary and secondary ADL'sShe denies any physical or financial abuse - Family History Sister -: Cancer Brother -: Kidney disease Mother Notes: hole in esophagus - Social History Alcohol use: No CD- Drugs: No Caffeine use: Yes Domestic Violence: Patient denies Review of Systems 10-point ROS is otherwise unremarkable Physical Examination - Physical Exam General: Cachectic, Other (Sedated and intubated) Respiratory: Dull, Other (Sedated/intubated) Cardiovascular: Regular rate/rhythm, Normal S1 S2 Gastrointestinal: Normal bowel sounds, No tenderness Musculoskeletal: No tenderness Integumentary: Rash(es), Pressure ulcer - Studies Laboratory Data (last 24 hrs) 12/16/18 16:30: PT 25.1 H, INR 2.19 12/16/18 16:30: Magnesium 2.2, Total Bilirubin 1.4 H, AST 69 H, ALT 19, Alkaline Phosphatase 69 12/16/18 16:30: Creatinine 2.29 H 12/16/18 16:30: WBC 9.0, Hgb 10.3 L, Hct 32.3 L D, Plt Count 376 D 12/16/18 16:30: Sodium 130 L, Potassium 3.7, BUN 48 H, Creatinine 2.30 H, Glucose 134 H Assessment and Plan - Problems (Diagnosis) (1) Seizure Current Visit: Yes Status: Acute Plan: Patient found down and witnessed seizures. -required intubation to help protect airways. Continue Vent protocol -CT of the head/trauma Gram negative for any other acute abnormalities. -Differential diagnosis: CVA, TIA, seizure, sepsis/infectious, metabolic, ? Medication withdrawal vs OD? -MRI ordered, pending -neurology consulted, awaiting recommendation -continue IV Keppra at this time -continue empiric antibiotics with vancomycin as patient with recent history of MRSA bacteremia (2) Generalized seizure requiring sedation and intubation Current Visit: Yes Status: Acute (3) Acute renal failure Current Visit: No Status: Acute Plan: This could be secondary to pre renal -monitor creatinine/kidney function -pharmacy to dose antibiotics -Will consult nephrology Qualifiers: (4) Bacteremia Current Visit: No Status: Chronic Plan: Patient with a recent history of MRSA bacteremia -Will continue empiric vancomycin at this time. (5) Hyponatremia Current Visit: No Status: Acute (6) Sacral decubitus ulcer, stage IV Current Visit: No Status: Acute Plan: Patient with recent debridement again with wound care as an outpatient. -will continue wound care here (7) TIA (transient ischemic attack) Onset Date: 05/30/15 Current Visit: No Status: Chronic Qualifiers: Transient cerebral ischemia type: unspecified Qualified Code(s): G45.9 - Transient cerebral ischemic attack, unspecified (8) Atrial fibrillation Current Visit: No Status: Chronic Plan: Will restart home medications Qualifiers: (9) Chronic diastolic (congestive) heart failure Current Visit: No Status: Chronic - Advance Directives Does patient have a Living Will: No Does patient have a Durable POA for Healthcare: No
[2018-12-16 18:48] LABS: Urine Blood TRACE (NEG); Urine Glucose NEGATIVE (NEG); Urine Protein TRACE (NEG); Urine Specific Gravity 1.015 (1.005-1.030); Urine pH 5.5 (5.0-7.0)
--- NOTE | 2018-12-16 19:26 | P.PN ---
Subjective Date of Service: 12/16/18 Chief Complaint: Seizure Subjective: Other (Called to assess left large laceration to the left elbow region. She apparently suffered a severe skin tear when she fell earlier in the day.) Physical Examination - Vital Signs Temperature: 98.4 F Blood Pressure: 112/85 Pulse: 121 Respirations: 16 - Physical Exam Integumentary: Other (Large left elbow all region laceration properly measuring around 3-4 inches in length. No exudate noted. No excessive bleeding noted. Laceration down to the fascia.) - Studies Laboratory Data (last 24 hrs) 12/16/18 16:30: PT 25.1 H, INR 2.19 12/16/18 16:30: Magnesium 2.2, Total Bilirubin 1.4 H, AST 69 H, ALT 19, Alkaline Phosphatase 69 12/16/18 16:30: Creatinine 2.29 H 12/16/18 16:30: WBC 9.0, Hgb 10.3 L, Hct 32.3 L D, Plt Count 376 D 12/16/18 16:30: Sodium 130 L, Potassium 3.7, BUN 48 H, Creatinine 2.30 H, Glucose 134 H Assessment & Plan Discharge Plan: Home Plan to discharge in: Greater than 2 days Physician Review Additional Text: Impression: Left large elbow region laceration Plan: Elbow was examined. Skin tear down to the fascia. Case discussed at length with surgery who was consulted. Skin tear cannot be sent safely closed. Will order x-ray to rule out fracture. Will have nurses irrigate area with normal saline. Then skin and tissue will be approximated as best possible. Will apply Steri-Strips. Then wet-to-dry dressing daily. Surgery will evaluate wound tomorrow. Await further recommendation. Time Spent Managing Pts Care (In Minutes): 30
--- NOTE | 2018-12-16 19:59 | RAD REPORT ---
EXAM DESCRIPTION: RAD - Forearm Left - 12/16/2018 7:40 pm CLINICAL HISTORY: R/O Fx Fall, arm pain COMPARISON: No comparisons FINDINGS: No acute fracture or dislocation is seen.
[2018-12-16 20:40] VITALS: BMI 20.5
[2018-12-16 21:48] LABS: Platelet Estimate ADEQ; Urine White Blood Cell Casts OK
[2018-12-16 21:49] LABS: Anisocytosis 1+; Blood Morphology Comment NOTED (NOT SEEN); Burr Cells FEW; Ovalocytes SLIGHT; Poikilocytosis 1+; Polychromasia SLIGHT; Teardrop Cell FEW
[2018-12-16] MEDS ORDERED: LEVETIRACETAM 500 MG/5 ML VIAL IV ONE (21:56)
[2018-12-16] MEDS ORDERED: NA CHLORIDE 0.9% 100 ML ONE (21:57)
[2018-12-16] MEDS: levETIRAcetam 500 MG in NA CHLORIDE 0.9% 100 ML IV SCH (21:58)
[2018-12-16] MEDS ORDERED: VANCOMYCIN 1 GM in NA CHLORIDE 0.9% 250 ML IVPB ONE (22:00)
[2018-12-16] MEDS ORDERED: VANCOMYCIN 1 GM/VIAL ONE (22:57)
[2018-12-16] MEDS ORDERED: NA CHLORIDE 0.9% 250 ML ONE (22:57)
[2018-12-17 01:45] LABS: Urine Protein/Creatinine Ratio 0.44 ratio (<0.15)
--- NOTE | 2018-12-17 04:19 | CON ---
Date of Consultation: 12/16/2018 Diagnosis: Laceration of the left forearm. History Of Present Illness: This is the case of a 78-year-old patient, admitted to the hospital with history of seizures, apparently fell or hit the arm. Etiology of that is unknown, has laceration of about 15 cm. There is on it with muscle and fascia exposed. No bone exposed. Primary d octor and nurse, they were able to clean the area, irrigate the area and then approximate the areas o f skin flap since it has been opened this morning and just secured the skin flap with Steri-Strip. P atient cannot give any information since patient is on a ventilator. Review of Systems: Unable to be obtained. Patient is sedated and intubated. Physical Examination: Chest: Bilateral breath sounds. Abdomen: Soft and depressible. Nondistended. Bowel sounds positive. Extremities: Over the left forearm region, patient has laceration, it is a B shape with a of about 5 cm. They initially showed me the area just before the Steri-Strip were placed , they have a picture of it. Apparently, the flaps still looked intact. There is Steri-Strip placed loosely to allow the area to drain properly. There are some areas of ecchymosis present. No active bleeding present. No fluctuance seen. No crepitus. No bone seen. No arterial bleeding. Hand, go od capillary refill. Laboratory Data: Blood work shows WBC count of 9 with hemoglobin of 10.3, INR is 2.19, creatinine is 2.30, chloride is 91. Forearm x-ray shows no acute fracture or dislocation. Assessment: This is a 78-year-old patient, complex laceration, left forearm, flaps are present. Dr. Dada Hooks and the nurse did a good job. They irrigated the area. They put the flaps where they belonged. The viability of that will be seen that as to delineate it in the next few days, righ t now it looks viable. There is some room for breathing in the sense that is not completely sealed, it is left to drain properly. We will see the patient in the next few days and she develo ped tissue necrosis in some areas, then we will proceed again and debride it, but right now, it is evans rd to say and we do not want to remove more than she needs to. On some occasion, sometimes this flap s just take 100% and the patient gets better. For that reason, we are going to keep an eye on it. W e are going to go over the area with sterile dressings, obviously avoid trauma. She is already on an tibiotics because she is MRSA for some other reasons. GLENNY/SUSAN Voice ID: [id number] Report ID: [id number]
[2018-12-17 05:20] LABS: Absolute Lymphocytes (CBC) 1.7 K/uL (0.7-4.9); Basophils % 0.6 % (0-1.3); Hematocrit 25.3 % (36.0-45.0); Lymphocytes % 21.4 % (15.3-44.8); MPV 8.4 fL (7.6-11.3); RBC Red Blood Cell Count 3.13 M/uL (3.86-4.86)
[2018-12-17 05:42] LABS: Protime INR 1.97
[2018-12-17 06:06] LABS: Albumin 2.6 g/dL (3.4-5.0); Bilirubin Total 1.1 mg/dL (0.2-1.0); Phosphorus 2.8 mg/dL (2.5-4.9); Protein, Total 5.5 g/dL (6.4-8.2); Thyroid Stimulating Hormone 3.58 uIU/mL (0.360-3.740)
--- NOTE | 2018-12-17 06:35 | EKG ---
Test Date: 2018-12-16 Test Time: 17:06:15 [place] Assistant: KRISTIE MEASUREMENT RESULTS: Intervals: Rate: 146 [place]: QRSD: 136 QT: 342 QTc: 532 [place]: P: [place]: QRS: 90 T: 7 INTERPRETIVE STATEMENTS: Atrial flutter with 2:1 AV block Right bundle branch block Abnormal ECG Compared to ECG 10/15/2018 07:51:28 Atrial fibrillation no longer present Electronically Signed On 12-17-18 06:35:22 CDT by Shaun Gallagher
[2018-12-17 06:47] LABS: Potassium 2.7 mmol/L (3.5-5.1)
[2018-12-17] MEDS ORDERED: POTASSIUM 25 MEQ EFFERV TAB PO ONE (07:11)
[2018-12-17] MEDS ORDERED: INFLUENZA VACCINE (for 3y+) 0.5 ML DOSE IMVAC ONE (08:00)
[2018-12-17] MEDS ORDERED: KCL 20 MEQ/100 mL IVPB 20 MEQ/100 ML BAG IV SCH (08:00)
[2018-12-17] MEDS: levETIRAcetam 500 MG in NA CHLORIDE 0.9% 100 ML IV SCH ×2 (09:00→20:58)
[2018-12-17] MEDS ORDERED: ETOMIDATE 20 MG/10 ML VIAL IV ONE (10:16)
[2018-12-17] MEDS ORDERED: VECURONIUM 10 MG/VIAL IV ONE (10:16)
[2018-12-17] MEDS ORDERED: WATER FOR INJ,STERILE 10 ML IM ONE (10:16)
--- NOTE | 2018-12-17 11:54 | P.CNS ---
Date of Consult: 12/17/18 Reason for Consult: Patient on respiratory failure Chief Complaint: Seizure History of Present Illness: Patient is 78 years of age currently unresponsive on a ventilator admitted with recurrent seizure this ulcers wounds on her left arm no prior history of seizures currently hemodynamically stable no further seizures noted Allergies No Known Allergies Allergy (Verified 12/10/18 12:09) Home Medications: Furosemide 40 mg PO DAILY 10/03/18 Levothyroxine Sodium 1 tab PO DAILY 10/03/18 Metoprolol Tartrate [Lopressor] 50 mg PO BID 10/03/18 Potassium Chloride 10 meq PO DAILY 10/03/18 Ascorbic Acid [Vitamin C] 1,000 mg PO DAILY 10/14/18 Acetaminophen with Codeine [Acetaminophen-Cod #3 Tablet] 1 tab PO Q4HP PRN 12/16 Ciprofloxacin HCl [Cipro 500 MG Tablet] 500 mg PO BID 12/16/18 Collagenase [Santyl Ointment*] 1 giovanny TOP EVERY 3RD DAY 12/16/18 Doxycycline Hyclate 100 mg PO BID 12/16/18 Melatonin/Pyridoxine HCl (B6) [Melatonin 3 mg Tablet] 1 each PO BEDTIME Mupirocin 1 appl TOP DAILY 12/16/18 Sennosides/Docusate Sodium [Eq Stool Softener-Stim Lax Tab] 1 - 2 tab PO DAILY 12/16/18 - Past Medical/Surgical History Diabetic: No -: Stroke(2013) -: Chronic Back Pain -: TMJ(Severe) -: AFIB -: bacterial meningitis(september 2013) -: hemochromotosis -: anemia -: HTN -: jamil -: breast sx ( left) cyst removed -: sinus sx -: varicose vein surgery -: tubal ligation -: vein surgery 36 years old Psychosocial/ Personal History: Patient smoked 1/2ppd for 35 years. Quit 20 years ago.She lives with her husbandHas all her primary and secondary ADL'sShe denies any physical or financial abuse - Family History Sister Medical History: Cancer Brother Medical History: Kidney disease Mother Notes: hole in esophagus - Social History Smoking Status: Unknown if ever smoked Alcohol use: No CD- Drugs: No Caffeine use: Yes Place of Residence: Home Domestic Violence: Patient denies Review of Systems is unable to be obtained Physical Examination Temp Pulse Resp BP Pulse Ox 98 F 93 H 19 97/75 100 12/17/18 04:00 12/17/18 07:00 12/17/18 07:00 12/17/18 07:00 12/17/18 07:00 General: Unresponsive Neck: Supple Respiratory: Clear to auscultation bilaterally, Diminished Cardiovascular: No edema, Normal S1 S2, Abnormal S3 Gastrointestinal: Normal bowel sounds, Soft and benign Laboratory Data (last 24 hrs) 12/16/18 16:30: PT 25.1 H, INR 2.19 12/16/18 16:30: Magnesium 2.2, Total Bilirubin 1.4 H, AST 69 H, ALT 19, Alkaline Phosphatase 69 12/16/18 16:30: Creatinine 2.29 H 12/16/18 16:30: WBC 9.0, Hgb 10.3 L, Hct 32.3 L D, Plt Count 376 D 12/16/18 16:30: Sodium 130 L, Potassium 3.7, BUN 48 H, Creatinine 2.30 H, Glucose 134 H - Problems (1) Respiratory failure Current Visit: Yes Status: Acute Plan: Patient is 78 years of age admitted with recurrent seizures fall respiratory failure the triple medical problems multiple decubitus ulcers including a wound in her left arm patient appears to be very unkempt l labs show hypokalemia renal failure no significant findings on whole body CT scan chest x-ray no evidence of pneumonia mild anemia blood gases show respiratory alkalosis normal oxygenation normal left ventricular function on diuretics patient has a large wound in the left elbow and a decubitus ulcer patient developed apneic spells while try to wean her off from the ventilator change to SIMV Qualifiers: Chronicity: acute
[2018-12-17 12:03] LABS: Arterial Blood Carboxyhemoglob 1.5 % (0-1.5)
[2018-12-17] MEDS: NA CHLORIDE 0.9% 1,000 ML IV SCH (12:58)
--- NOTE | 2018-12-17 13:55 | RAD REPORT ---
EXAM DESCRIPTION: US - Renal Ultrasound-Complete - 12/17/2018 1:43 pm CLINICAL HISTORY: MAGNUS Flank pain COMPARISON: Renal Ultrasound-Complete dated 10/04/2018 FINDINGS: Both kidneys are normal in size, shape and echotexture. The right kidney measures 8.5 x 4.7 x 4.0 cm. No hydronephrosis, focal mass or perinephric fluid. The left kidney measures 7.9 x 4.9 x 4.4 cm. No hydronephrosis, focal mass or perinephric fluid. The urinary bladder is incompletely distended without gross abnormality seen. IMPRESSION: Unremarkable renal sonogram.
[2018-12-17] MEDS ORDERED: COLLAGENASE 30 GM OINTMENT TOP SCH (15:45)
--- NOTE | 2018-12-17 18:39 | P.PN ---
Subjective Date of Service: 12/17/18 Chief Complaint: Seizure Subjective: No new changes Patient seen and examined at bedside. at bedside. Chart reviewed and case discussed with nursing staff. Patient continues to be intubated, unable to be weaned off. Weaned off of sedation Review of Systems 10-point ROS is otherwise unremarkable Physical Examination - Vital Signs Temperature: 97.9 F Blood Pressure: 91/79 Pulse: 119 Respirations: 14 Pulse Ox (%): 98 - Physical Exam General: Other (Intubated ) Respiratory: Other (Intubated) Cardiovascular: No edema, Regular rate/rhythm Gastrointestinal: Normal bowel sounds, No tenderness Musculoskeletal: No tenderness - Studies Laboratory Data (last 24 hrs) 12/16/18 16:30: WBC 9.0, Hgb 10.3 L, Hct 32.3 L D, Plt Count 376 D Assessment And Plan - Current Problems (Diagnosis) (1) Seizure Current Visit: Yes Status: Acute Plan: Patient found down and witnessed seizures. -required intubation to help protect airways. Continue Vent protocol -CT of the head/trauma Gram negative for any other acute abnormalities. -Differential diagnosis: CVA, TIA, seizure, sepsis/infectious, metabolic, ? Medication withdrawal vs OD? -MRI ordered but unable to be done until patient extubate -neurology consulted, recommendations appreciated -EEG pending -continue IV Keppra at this time -continue empiric antibiotics with vancomycin as patient with recent history of MRSA bacteremia (2) Generalized seizure requiring sedation and intubation Current Visit: Yes Status: Acute (3) Acute renal failure Current Visit: No Status: Acute Plan: This could be secondary to pre renal -monitor creatinine/kidney function -pharmacy to dose antibiotics -Will consult nephrology Qualifiers: (4) Bacteremia Current Visit: No Status: Chronic Plan: Patient with a recent history of MRSA bacteremia -Will continue empiric vancomycin at this time. (5) Hyponatremia Current Visit: No Status: Acute (6) Sacral decubitus ulcer, stage IV Current Visit: No Status: Acute Plan: Patient with recent debridement again with wound care as an outpatient. -will continue wound care here -wound VAC in place now (7) TIA (transient ischemic attack) Onset Date: 05/30/15 Current Visit: No Status: Chronic Qualifiers: Transient cerebral ischemia type: unspecified Qualified Code(s): G45.9 - Transient cerebral ischemic attack, unspecified (8) Atrial fibrillation Current Visit: No Status: Chronic Plan: Will restart home medications Qualifiers: (9) Chronic diastolic (congestive) heart failure Current Visit: No Status: Chronic Physician Review Additional Text: Impression: Left large elbow region laceration Plan: Elbow was examined. Skin tear down to the fascia. Case discussed at length with surgery who was consulted. Skin tear cannot be sent safely closed. Will order x-ray to rule out fracture. Will have nurses irrigate area with normal saline. Then skin and tissue will be approximated as best possible. Will apply Steri-Strips. Then wet-to-dry dressing daily. Surgery will evaluate wound tomorrow. Await further recommendation. Critical Care: Yes
[2018-12-18] MEDS ORDERED: LORazepam 2 MG/ML VIAL ONE (00:32)
[2018-12-18 05:43] LABS: RBC Red Blood Cell Count 3.17 M/uL (3.86-4.86)
[2018-12-18 05:48] LABS: Absolute Lymphocytes (CBC) 1.5 K/uL (0.7-4.9); Basophils % 0.6 % (0-1.3); Hematocrit 25.2 % (36.0-45.0); Lymphocytes % 21.4 % (15.3-44.8); MPV 8.2 fL (7.6-11.3); RBC Red Blood Cell Count 3.14 M/uL (3.86-4.86)
[2018-12-18 05:53] LABS: Albumin 2.5 g/dL (3.4-5.0); Bilirubin Total 1.2 mg/dL (0.2-1.0); Magnesium 2.1 mg/dL (1.8-2.4); Phosphorus 1.7 mg/dL (2.5-4.9); Potassium 3.4 mmol/L (3.5-5.1); Protein, Total 5.5 g/dL (6.4-8.2)
[2018-12-18 06:20] LABS: Ferritin 24.1 ng/mL (8-388); Folic Acid, (Folate) 4.5 ng/mL (3.1-17.5); Uric Acid 14.8 mg/dL (2.6-6.0)
[2018-12-18 06:23] LABS: Thyroid Stimulating Hormone 5.48 uIU/mL (0.360-3.740)
[2018-12-18] MEDS ORDERED: VANCOMYCIN/NS 1 gm 1 GM/250 ML BAG IV SCH (09:00)
--- NOTE | 2018-12-18 09:02 | P.PN ---
Subjective Date of Service: 12/18/18 Chief Complaint: Seizure Patient's condition is stable unable to wean off the ventilator yesterday due to apneic episodes has been present at the bedside no prior history of seizures seen by neurology no evidence of sepsis Review of Systems is unable to be obtained Physical Examination - Vital Signs Temperature: 98 F Blood Pressure: 95/62 Pulse: 108 Respirations: 16 Pulse Ox (%): 96 - Physical Exam General: Alert Respiratory: Clear to auscultation bilaterally Cardiovascular: No edema, Regular rate/rhythm Assessment & Plan - Problems (Diagnosis) (1) Respiratory failure Current Visit: Yes Status: Acute Plan: Patient admitted with respiratory failure currently DNR plan to wean and extubate change to SIMV no evidence of sepsis labs reviewed plan to wean and extubate labs reviewed Physician Review Additional Text: Impression: Left large elbow region laceration Plan: Elbow was examined. Skin tear down to the fascia. Case discussed at length with surgery who was consulted. Skin tear cannot be sent safely closed. Will order x-ray to rule out fracture. Will have nurses irrigate area with normal saline. Then skin and tissue will be approximated as best possible. Will apply Steri-Strips. Then wet-to-dry dressing daily. Surgery will evaluate wound tomorrow. Await further recommendation.
[2018-12-18 09:08] LABS: Arterial Blood Carboxyhemoglob 1.7 % (0-1.5); Blood Gas Oxyhemoglobin 96.6 % (94-97); Blood O2 Saturation 98.5 % (92-98.5)
--- NOTE | 2018-12-18 09:19 | EEG ---
CHART: [id number] TEST ID#: [id number] DATE OF STUDY: 12/17/2018 THE EEG WAS RECORDED PORTABLE IN THE ICU ON A 17 CHANNEL MACHINE. ELECTRODES WERE APPLIED IN THE USUAL MANNER USING THE INTERNATIONAL 10-20 SYSTEM. THE WAKING BACKGROUND RHYTHM IN THIS RECORD CONSISTS OF WELL DEVELOPED AND WELL ORGANIZED WAVES OF 10 HZ., WHICH ATTENUATE NORMALLY WITH EYE OPENING. LOW-VOLTAGE 18-22 HZ ACTIVITY IS EXPRESSED IN THE FRONTAL REGIONS. THERE ARE NO FOCAL OR LATERALIZING FEATURES. NO EPILEPTIFORM ACTIVITY APPEARS. TWO EPISODES OF MODERATE VOLTAGE 4 HZ SPIKE AND WAVE DISCHARGES LASTING 1 SECOND EACH OCCURRED DURING SLEEP IN RIGHT HEMISPHERE. PHOTIC STIMULATION PRODUCED POOR DRIVING BILATERALLY. IMPRESSION: THIS IS AN ABNORMAL ROUTINE AWAKE AND ASLEEP EEG DUE TO THE PRESENCE OF RIGHT HEMISPHERE EPILEPTIC DISCHARGES. THIS FINDING INDICATES THE PRESENCE OF A POTENTIALLY EPILEPTOGENIC LESION IN THIS REGION.
[2018-12-18] MEDS: levETIRAcetam 500 MG in NA CHLORIDE 0.9% 100 ML IV SCH ×2 (10:08→20:56)
[2018-12-18] MEDS: NA CHLORIDE 0.9% 1,000 ML IV SCH (10:09)
--- NOTE | 2018-12-18 12:29 | P.PN ---
Subjective Date of Service: 12/18/18 Chief Complaint: Seizure Subjective: No new changes pt presented seizure , required intubation , found to have MAGNUS Today still intubated RFt improving will change fluid to D5NS tomorrow monitor vanco level Physical Examination - Vital Signs Temperature: 98 F Blood Pressure: 118/97 Pulse: 125 Respirations: 18 Pulse Ox (%): 95 - Physical Exam General: Alert, Other (intubated , thin ) HEENT: Atraumatic Neck: Supple, Without JVD or thyroid abnormality Respiratory: Clear to auscultation bilaterally, Normal air movement Cardiovascular: No edema, Regular rate/rhythm, No gallops, No rubs, No murmurs Gastrointestinal: Normal bowel sounds, Soft and benign, Non-distended Musculoskeletal: No swelling Assessment And Plan - Plan MAGNUS due to prerenal azotemia Cr improving Seizure disorder on Keppra Afib HR slightl;y elevated today decubiti wound cont wound care Hx of CHF off diuretics on IVF now
--- NOTE | 2018-12-18 17:08 | P.PN ---
Subjective Date of Service: 12/18/18 Chief Complaint: Seizure Patient seen and examined at bedside. Family at bedside. Chart reviewed and case discussed with nursing staff. Patient continues to be intubated, unable to be weaned off. Weaned off of sedation Review of Systems 10-point ROS is otherwise unremarkable Physical Examination - Vital Signs Temperature: 97.9 F Blood Pressure: 91/79 Pulse: 119 Respirations: 14 Pulse Ox (%): 98 - Physical Exam General: Other (Intubated, able to follow commands) Cardiovascular: Regular rate/rhythm, Normal S1 S2 Gastrointestinal: Normal bowel sounds, No tenderness Assessment And Plan - Current Problems (Diagnosis) (1) Seizure Current Visit: Yes Status: Acute Plan: Patient found down and witnessed seizures. -required intubation to help protect airways. Continue Vent protocol -CT of the head/trauma Gram negative for any other acute abnormalities. -Differential diagnosis: CVA, TIA, seizure, sepsis/infectious, metabolic, ? Medication withdrawal vs OD? -MRI ordered but unable to be done until patient extubate -neurology consulted, recommendations appreciated -EEG pending -continue IV Keppra at this time -continue empiric antibiotics with vancomycin as patient with recent history of MRSA bacteremia (2) Generalized seizure requiring sedation and intubation Current Visit: Yes Status: Acute (3) Acute renal failure Current Visit: No Status: Acute Plan: This could be secondary to pre renal -monitor creatinine/kidney function -pharmacy to dose antibiotics -Will consult nephrology Qualifiers: (4) Bacteremia Current Visit: No Status: Chronic Plan: Patient with a recent history of MRSA bacteremia -Will continue empiric vancomycin at this time. (5) Hyponatremia Current Visit: No Status: Acute (6) Sacral decubitus ulcer, stage IV Current Visit: No Status: Acute Plan: Patient with recent debridement again with wound care as an outpatient. -will continue wound care here -wound VAC in place now (7) TIA (transient ischemic attack) Onset Date: 05/30/15 Current Visit: No Status: Chronic Qualifiers: Transient cerebral ischemia type: unspecified Qualified Code(s): G45.9 - Transient cerebral ischemic attack, unspecified (8) Atrial fibrillation Current Visit: No Status: Chronic Plan: Will restart home medications Qualifiers: (9) Chronic diastolic (congestive) heart failure Current Visit: No Status: Chronic - Plan Disposition: Patient not ready to be extubated,not able to be weaned off. Patient endorses wanting that tube out, states he would also like the tube out. Unsure if understands that this would be likely a terminal extubation as patient may not be able to breathe on her own without the vent. Had an extensive family discussion in regards to extubation and expectations. Also discussed hospice care. Family to discuss among themselves and make a decision. Physician Review Additional Text: . Critical Care: Yes
[2018-12-18] MEDS ORDERED: METOPROLOL TARTRATE 5 MG/5 ML INJ IV STA (18:32)
--- NOTE | 2018-12-18 19:02 | CON ---
History Of Present Illness: All the information has been obtained from the record as patient being intubated. This is a 78-year-old female with significant past medical history of atrial fibrillation, TIA, the patient was recently admitted with bacteremia, MRSA secondary to wound infection. The patient apparently was at home, fell down, EMS was called, placed her on the bed , refused to be transferred to the hospital. Then, after 45 minutes, the patient found again fell in the kitchen with witnessed seizure. EMS called to the scene. Three episodes of seizure witnessed. For that reason, patient was transferred to the emergency room. On the way, given Ativan. In the emergency room, patient again seized actively. For that reason, patient was intubated for airway protection. Primary workup showed hyponatremia with sodium down to 130 with hypokalemia. For that reason, we have been consulted. The patient was started on IV hydration. Sodium rise to 136. The patient is still on vent. The patient found to have right-sided weakness, started waking up, following command. Past Medical History: 1. CVA back in 2013. 2. Low back pain. 3. AFib. 4. Bacterial meningitis. 5. MRSA bacteremia. 6. Breast cyst. 7. Seizure. Past Surgical History: Includes vein surgeries, tubal ligation, varicose surgery, sinus surgery, breast cyst removal, cholecystectomy. Family History: Positive for cancer and kidney disease. Social History: Denies smoking. Denies drinking. Denies drugs abuse. Review of Systems: Head and Neck: No red eye. No ear pain. GI: No nausea. No vomiting. : No polyuria. No dysuria. No hematuria. COMMUTATOR PRESSER: Not obtainable. Respiratory: On vent. Cardiovascular: no SOB Neuro: Has seizure activity. Musculoskeletal: None obtainable. Skin: No rash. Physical Examination: Vital Signs: When I saw the patient, the patient on vent. Blood pressure 97/78 , pulse of 109, afebrile. The patient had urine output of 350. Chest: Faint crackles on the left base. Heart: S1, S2. Systolic murmur. Abdomen: Soft, nontender. Extremities: No edema. Neuro: Opens eyes spontaneously. Follows command. Weakness on the right side , especially on the upper extremity. Laboratory Data: Sodium 136, potassium 2.7, bicarb 25, BUN 43, creatinine 1.6. Uric acid of 16, calcium 7.9, phosphorus 2.8, magnesium of 2. CK-MB 11.8. BNP 6449. PTH 132, cortisol 34. Urinalysis, specific gravity of 1.015. ABG; pH 7.47, CO2 37, O2 124, saturation of 97. Current Medications: The patient on in the hospital include: 1. Normal saline. 2. Keppra. 3. Vancomycin. Assessment And Plan: 1. Acute kidney injury secondary to prerenal poor perfusion acute tubular necrosis, superimposed with rhabdo. We are going to start the patient on hydration and we will monitor the patient closely. I am going to go ahead and send for renal ultrasound, protein creatinine, and we will follow up. 2. Hypertension, currently hypotension. Hold all diuresis for the time being given the acute kidney injury. We will continue on IV hydration and we will monitor. 3. Anemia with the presence of acute kidney disease, light chain disease needs to be ruled out. We will send for anemia workup and send for serum protein electrophoresis. 4. Infection of skin with methicillin-resistant Staphylococcus aureus. Continue vancomycin. We will follow up the level. 5. Seizure as by Neurology. Continue Keppra. 6. Hyponatremia secondary to depletional, superimposed with Lasix. I am going to continue on normal saline. Hold the Lasix. 7. Hypokalemia. We will supplement. Thank you Dr. Kaur for allowing us to participate in the care of your patient. JACKIE Voice ID: [id number] Report ID: [id number] FRANTZ
[2018-12-19] MEDS ORDERED: METOPROLOL TARTRATE 5 MG/5 ML INJ IV STA (00:07)
[2018-12-19 05:02] LABS: Absolute Lymphocytes (CBC) 1.1 K/uL (0.7-4.9); Lymphocytes % 13.9 % (15.3-44.8); RBC Red Blood Cell Count 3.25 M/uL (3.86-4.86)
[2018-12-19 05:21] LABS: Albumin 2.7 g/dL (3.4-5.0); Magnesium 2.1 mg/dL (1.8-2.4); Potassium 3.5 mmol/L (3.5-5.1); Protein, Total 5.9 g/dL (6.4-8.2)
[2018-12-19] MEDS: NA CHLORIDE 0.9% 1,000 ML IV SCH (05:30)
[2018-12-19] MEDS: levETIRAcetam 500 MG in NA CHLORIDE 0.9% 100 ML IV SCH ×2 (09:22→20:14)
--- NOTE | 2018-12-19 12:37 | P.PN ---
Subjective Date of Service: 12/19/18 Chief Complaint: Seizure Subjective: Improving Patient seen and examined at bedside. Family at bedside. Chart reviewed and case discussed with nursing staff. Patient extubated yesterday, per family and patient choice. She did well overnight, satting well on nasal cannula. Tolerating clear liquids Review of Systems 10-point ROS is otherwise unremarkable Physical Examination - Vital Signs Temperature: 98.8 F Blood Pressure: 106/76 Pulse: 145 Respirations: 31 Pulse Ox (%): 96 - Physical Exam General: Alert, In no apparent distress, Cachectic, Other (Elderly) HEENT: Atraumatic, PERRLA, EOMI Neck: Supple, JVD not distended Respiratory: Clear to auscultation bilaterally, Normal air movement Cardiovascular: Regular rate/rhythm, Normal S1 S2 Gastrointestinal: Normal bowel sounds, No tenderness Musculoskeletal: No tenderness Integumentary: No rashes Neurological: Normal speech, Normal tone, Normal affect Lymphatics: No axilla or inguinal lymphadenopathy Assessment And Plan - Current Problems (Diagnosis) (1) Seizure Current Visit: Yes Status: Acute Plan: Patient found down and witnessed seizures. -required intubation to help protect airways. Patient extubated per family's/ patient choice. Discussed in detail with patient may not do well post extubation. Patient remained DNR DNI. Extubated, doing well post extubation. -CT of the head/trauma Gram negative for any other acute abnormalities. -Differential diagnosis: CVA, TIA, seizure, sepsis/infectious, metabolic, ? Medication withdrawal vs OD? -MRI ordered but will not be done until Friday as no MRIs done on the weekends here. -neurology consulted, recommendations appreciated -EEG with abnormality, epileptogenic center noted on the right hemisphere -continue IV Keppra at this time -continue empiric antibiotics with vancomycin as patient with recent history of MRSA bacteremia (2) Generalized seizure requiring sedation and intubation Current Visit: Yes Status: Acute (3) Acute renal failure Current Visit: No Status: Resolved Plan: This could be secondary to pre renal - creatinine now normal Qualifiers: (4) Bacteremia Current Visit: No Status: Chronic Plan: Patient with a recent history of MRSA bacteremia Blood cultures negative at this time (5) Hyponatremia Current Visit: No Status: Resolved (6) Sacral decubitus ulcer, stage IV Current Visit: No Status: Acute Plan: Patient with recent debridement again with wound care as an outpatient. -will continue wound care here -wound VAC in place now -cultures positive for E. coli, sensitive to doxycycline. Will adjust IV antibiotics (7) TIA (transient ischemic attack) Onset Date: 05/30/15 Current Visit: No Status: Chronic Qualifiers: Transient cerebral ischemia type: unspecified Qualified Code(s): G45.9 - Transient cerebral ischemic attack, unspecified (8) Atrial fibrillation Current Visit: No Status: Chronic Plan: Will continue home medications Qualifiers: (9) Chronic diastolic (congestive) heart failure Current Visit: No Status: Chronic - Plan Disposition: Patient extubated secondary to patient/family choice. Patient now a DNR/DNI. She is doing well post extubation. Will continue to monitor in the ICU Physician Review Additional Text: .
--- NOTE | 2018-12-19 13:00 | P.PN ---
Subjective Date of Service: 12/19/18 Chief Complaint: Seizure Subjective: Improving pt presented seizure , required intubation , found to have MAGNUS Now extubated Today extubated tolerating liquid diet Dc IVF electrolytes wnl monitor vanco level Physical Examination - Vital Signs Temperature: 98.8 F Blood Pressure: 106/76 Pulse: 145 Respirations: 31 Pulse Ox (%): 96 - Physical Exam General: Alert, Cachectic HEENT: Atraumatic Neck: Supple, Without JVD or thyroid abnormality Respiratory: Crackles/rales Cardiovascular: No edema, Regular rate/rhythm, Normal S1 S2, No gallops, No rubs , No murmurs Gastrointestinal: Normal bowel sounds, Soft and benign Assessment And Plan - Plan MAGNUS due to prerenal azotemia resolved Seizure disorder on Keppra Afib this morning have Afib with RVR , now HR controlled decubiti wound cont wound care Hx of CHF off diuretics will dc IVF
[2018-12-19] MEDS: DOXYCYCLINE 100 MG in NA CHLORIDE 0.9% 100 ML IVPB SCH ×2 (14:09→21:35)
[2018-12-19] MEDS: DOCUSATE NA/SENNA CONC 1 TAB PO PRN (15:55)
--- NOTE | 2018-12-19 16:57 | RAD REPORT ---
EXAM DESCRIPTION: Ray Single View12/18/2018 7:07 pm CLINICAL HISTORY: Respiratory failure COMPARISON: December 16, 2018 FINDINGS: Due to technical issues at the hospital the exam could not be dictated after completion. It is now available for dictation The lungs appear clear of acute infiltrate. The heart is moderately enlarged Endotracheal tube has its tip a couple centimeters above the anh Nasogastric tube is present within the stomach IMPRESSION: No acute abnormalities displayed
[2018-12-19] MEDS: METOPROLOL TAR 50 MG TAB PO SCH (18:37)
[2018-12-19] MEDS ORDERED: POTASSIUM CL SA 10 MEQ TAB PO ONE (21:00)
[2018-12-19] MEDS: ACETAMINOPHEN 500 MG TAB PO PRN (21:10)
[2018-12-19] MEDS: HYDROCODONE/APAP 7.5/325 MG TAB PO PRN (23:36)
[2018-12-20 05:55] LABS: Absolute Lymphocytes (CBC) 1.4 K/uL (0.7-4.9); Basophils % 0.6 % (0-1.3); Hematocrit 27.8 % (36.0-45.0); Lymphocytes % 16.2 % (15.3-44.8); MPV 8.6 fL (7.6-11.3); RBC Red Blood Cell Count 3.35 M/uL (3.86-4.86)
[2018-12-20 06:12] LABS: Albumin 2.7 g/dL (3.4-5.0); Bilirubin Total 0.8 mg/dL (0.2-1.0); Magnesium 1.9 mg/dL (1.8-2.4); Phosphorus 2.3 mg/dL (2.5-4.9); Potassium 3.7 mmol/L (3.5-5.1)
[2018-12-20] MEDS ORDERED: POTASSIUM CL SA 10 MEQ TAB PO ONE ×2 (07:15→09:00)
[2018-12-20] MEDS: POTASS/SODIUM PHOSPHATE 1 PKT POWD.PACK PO SCH ×3 (08:14→09:28)
[2018-12-20] MEDS: METOPROLOL TAR 50 MG TAB PO SCH ×2 (08:14→22:09)
[2018-12-20] MEDS: DOCUSATE NA/SENNA CONC 1 TAB PO PRN (08:39)
[2018-12-20] MEDS: HYDROCODONE/APAP 7.5/325 MG TAB PO PRN ×2 (08:39→23:15)
[2018-12-20] MEDS: levETIRAcetam 500 MG in NA CHLORIDE 0.9% 100 ML IV SCH ×2 (10:47→22:09)
[2018-12-20] MEDS: DOXYCYCLINE 100 MG in NA CHLORIDE 0.9% 100 ML IVPB SCH ×2 (10:48→22:10)
--- NOTE | 2018-12-20 11:26 | P.PN ---
Subjective Date of Service: 12/20/18 Chief Complaint: Seizure Subjective: Improving pt presented seizure , required intubation , found to have MAGNUS Now extubated Today no new complaints tolerating liquid diet will rpt CXR tomorrow Cont current management Physical Examination - Vital Signs Temperature: 97.2 F Blood Pressure: 111/75 Pulse: 99 Respirations: 23 Pulse Ox (%): 100 - Physical Exam General: Alert, In no apparent distress, Cachectic HEENT: Atraumatic Neck: Supple, Without JVD or thyroid abnormality Respiratory: Rhonchi/gurgles Cardiovascular: No edema, Regular rate/rhythm, Normal S1 S2, No gallops, No rubs , No murmurs Gastrointestinal: Normal bowel sounds, No ascites Musculoskeletal: No swelling Assessment And Plan - Plan MAGNUS due to prerenal azotemia resolved Seizure disorder on Keppra Afib this morning have Afib with RVR , now HR controlled Acute resp failure extbated now decubiti wound cont wound care Hx of CHF off diuretics will dc IVF
--- NOTE | 2018-12-20 11:46 | P.PN ---
Subjective Date of Service: 12/20/18 Chief Complaint: Seizure Subjective: Improving Patient seen and examined at bedside. Family at bedside. Chart reviewed and case discussed with nursing staff. Patient extubated, per family and patient choice. Continues to do well, 100% on 3 L nasal cannula Tolerating a regular diet Review of Systems 10-point ROS is otherwise unremarkable Physical Examination - Vital Signs Temperature: 97.2 F Blood Pressure: 111/75 Pulse: 99 Respirations: 23 Pulse Ox (%): 100 - Physical Exam General: Alert, In no apparent distress HEENT: Atraumatic, PERRLA, EOMI Neck: Supple, JVD not distended Respiratory: Clear to auscultation bilaterally, Normal air movement Cardiovascular: Regular rate/rhythm, Normal S1 S2 Gastrointestinal: Normal bowel sounds, No tenderness Musculoskeletal: No tenderness Integumentary: Rash(es), Pressure ulcer, Other (Very frail skin, skin breakdown in multiple areas;) Neurological: Normal speech, Normal tone, Normal affect Lymphatics: No axilla or inguinal lymphadenopathy Assessment And Plan - Current Problems (Diagnosis) (1) Seizure Current Visit: Yes Status: Acute Plan: Patient found down and witnessed seizures. -required intubation to help protect airways. Patient extubated per family's/ patient choice. Discussed in detail with patient may not do well post extubation. Patient remained DNR DNI. Extubated, doing well post extubation. -CT of the head/trauma Gram negative for any other acute abnormalities. -Differential diagnosis: CVA, TIA, seizure, sepsis/infectious, metabolic, ? Medication withdrawal vs OD? -MRI ordered but will not be done until Friday as no MRIs done on the weekends here. -neurology consulted, recommendations appreciated -EEG with abnormality, epileptogenic center noted on the right hemisphere -continue IV Keppra at this time (2) Generalized seizure requiring sedation and intubation Current Visit: Yes Status: Acute (3) Bacteremia Current Visit: No Status: Chronic Plan: Patient with a recent history of MRSA bacteremia Blood cultures negative at this time (4) Hyponatremia Current Visit: No Status: Resolved (5) Sacral decubitus ulcer, stage IV Current Visit: No Status: Acute Plan: Patient with recent debridement again with wound care as an outpatient. -will continue wound care here -wound VAC in place now -cultures positive for E. coli, sensitive to doxycycline. Will adjust IV antibiotics (6) TIA (transient ischemic attack) Onset Date: 05/30/15 Current Visit: No Status: Chronic Qualifiers: Transient cerebral ischemia type: unspecified Qualified Code(s): G45.9 - Transient cerebral ischemic attack, unspecified (7) Atrial fibrillation Current Visit: No Status: Chronic Plan: Home medications resumed. Continue to monitor on tele Qualifiers: (8) Chronic diastolic (congestive) heart failure Current Visit: No Status: Chronic (9) Acute renal failure Current Visit: No Status: Resolved Plan: This could be secondary to pre renal - creatinine now normal Qualifiers: - Plan Disposition: Patient extubated secondary to patient/family choice. Patient now a DNR/DNI. She is doing well post extubation. Transfer to the floor. Physician Review Additional Text: .
[2018-12-21 05:51] LABS: Albumin 2.9 g/dL (3.4-5.0); Magnesium 1.9 mg/dL (1.8-2.4); Phosphorus 3.1 mg/dL (2.5-4.9); Potassium 5.1 mmol/L (3.5-5.1)
[2018-12-21 05:55] LABS: Vitamin D 1,25-Dihydroxy Total 11 pg/mL (18-72); Vitamin D,1,25-OH2, D2 <8 pg/mL
--- NOTE | 2018-12-21 09:04 | RAD REPORT ---
EXAM DESCRIPTION: RAD - Chest Single View - 12/21/2018 8:41 am CLINICAL HISTORY: Pulmonary edema, pleural effusion COMPARISON: December 18 TECHNIQUE: AP portable chest image was obtained [id number] hours . FINDINGS: Endotracheal tube and NG tube have been removed. Trachea is in midline. No abnormal disten tion of the stomach. Chronic interstitial lung disease again noted. No new or progressive left lung field finding. Small r ight pleural effusion has developed. No pneumothorax is present. Cardiomegaly is present. Upper lobe vasculature within normal limits. No acute aortic findings suspected. IMPRESSION: Small right pleural effusion has developed. No significant pulmonary edema. Cardiomegaly without vascular engorgement. Mild failure or volume overload findings could be masked b y the chronic interstitial pattern.
[2018-12-21] MEDS: ACETAMINOPHEN 500 MG TAB PO PRN ×2 (10:18→22:50)
[2018-12-21] MEDS: levETIRAcetam 500 MG in NA CHLORIDE 0.9% 100 ML IV SCH ×2 (10:19→21:00)
[2018-12-21] MEDS: METOPROLOL TAR 50 MG TAB PO SCH ×2 (10:19→21:46)
[2018-12-21] MEDS: DOXYCYCLINE 100 MG in NA CHLORIDE 0.9% 100 ML IVPB SCH (10:19)
[2018-12-21] MEDS: LORazepam 2 MG/ML VIAL IV PRN (13:55)
--- NOTE | 2018-12-21 15:07 | RAD REPORT ---
EXAM DESCRIPTION: MRI - Brain Wo Cont - 12/21/2018 2:43 pm CLINICAL HISTORY: seizure, AMS, ?CVA COMPARISON: CT head December 16 TECHNIQUE: Sagittal T1-weighted images were obtained along with axial PD, heavily T2-weighted and T2 -FLAIR images. Axial DWI and ADC mapping sequences were also obtained along with coronal heavily T2-w eighted images. FINDINGS: No intracranial hemorrhage, mass or acute infarction. There is no edema or shift of midlin e structures. No extra-axial fluid collections. Cooney-matter/white matter junction is preserved. Patie nt has significant underlying atrophy as well as chronic ischemic change. Old infarction changes are present in the left occipital lobe. Ventricles are in proportion to volume loss. No globe or orbital content abnormality suspected. Mastoid air cells and paranasal sinuses are clear. Exam has significant motion degradation limitation. IMPRESSION: Substantially motion degraded examination showing no acute infarction. No hemorrhage, ma ss or other acute finding suspected. 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 Atrophy and chronic ischemic change.
--- NOTE | 2018-12-21 18:04 | P.PN ---
Subjective Date of Service: 12/21/18 Chief Complaint: Seizure Subjective: Improving Patient seen and examined at bedside. Family at bedside. Chart reviewed and case discussed with nursing staff. Patient extubated, per family and patient choice. Continues to do well, 100% on 3 L nasal cannula Tolerating a regular diet Talking more, alert oriented Complaining of back pain Review of Systems 10-point ROS is otherwise unremarkable Physical Examination - Vital Signs Temperature: 97.5 F Blood Pressure: 126/83 Pulse: 112 Respirations: 20 Pulse Ox (%): 100 - Physical Exam General: Alert, Oriented x3, Cachectic, Mild distress, Other (Elderly) HEENT: Atraumatic, PERRLA, EOMI Neck: Supple, JVD not distended Respiratory: Clear to auscultation bilaterally, Normal air movement Cardiovascular: Regular rate/rhythm, Normal S1 S2 Gastrointestinal: Normal bowel sounds, No tenderness Musculoskeletal: No tenderness Integumentary: No rashes Neurological: Normal speech, Normal tone, Normal affect Assessment And Plan - Current Problems (Diagnosis) (1) Seizure Current Visit: Yes Status: Acute Plan: Patient found down and witnessed seizures. -required intubation to help protect airways. Patient extubated per family's/ patient choice. Discussed in detail with patient may not do well post extubation. Patient remained DNR DNI. Extubated, doing well post extubation. -CT of the head/trauma Gram negative for any other acute abnormalities. -Differential diagnosis: CVA, TIA, seizure, sepsis/infectious, metabolic, ? Medication withdrawal vs OD? -MRI ordered but will not be done until Friday as no MRIs done on the weekends here. -neurology consulted, recommendations appreciated -EEG with abnormality, epileptogenic center noted on the right hemisphere -continue IV Keppra at this time (2) Generalized seizure requiring sedation and intubation Current Visit: Yes Status: Acute (3) Bacteremia Current Visit: No Status: Chronic Plan: Patient with a recent history of MRSA bacteremia Blood cultures negative at this time (4) Hyponatremia Current Visit: No Status: Resolved (5) Sacral decubitus ulcer, stage IV Current Visit: No Status: Acute Plan: Patient with recent debridement again with wound care as an outpatient. -will continue wound care here -wound VAC in place now -cultures positive for E. coli, sensitive to doxycycline. Will adjust IV antibiotics (6) TIA (transient ischemic attack) Onset Date: 05/30/15 Current Visit: No Status: Chronic Qualifiers: Transient cerebral ischemia type: unspecified Qualified Code(s): G45.9 - Transient cerebral ischemic attack, unspecified (7) Atrial fibrillation Current Visit: No Status: Chronic Plan: Home medications resumed. Continue to monitor on tele Qualifiers: (8) Chronic diastolic (congestive) heart failure Current Visit: No Status: Chronic (9) Acute renal failure Current Visit: No Status: Resolved Plan: This could be secondary to pre renal - creatinine now normal Qualifiers: - Plan Disposition: Patient extubated secondary to patient/family choice. Patient now a DNR/DNI. She is doing well post extubation. Transfer to the floor. Patient unsure which she wants in the future. Started hospice talk, patient does not seem to be ready at this time. Will continue discussion on regards to goals of care. Physician Review Additional Text: .
[2018-12-21 21:11] LABS: Albumin, (SPE) 2.6 g/dL (3.8-4.8); Alpha-1-Globulins 0.3 g/dL (0.2-0.3); Alpha-2-Globulins 0.5 g/dL (0.5-0.9); INTERPRETATION REPORT
[2018-12-21] MEDS: JUVEN PACKET PO SCH (21:47)
[2018-12-21] MEDS: DOXYCYCLINE 100 MG CAP PO SCH (21:47)
[2018-12-21] MEDS ORDERED: LEVETIRACETAM 500 MG/5 ML VIAL IV ONE (22:36)
[2018-12-21] MEDS ORDERED: NA CHLORIDE 0.9% 100 ML ONE (22:38)
[2018-12-22 04:53] LABS: Absolute Lymphocytes (CBC) 1.2 K/uL (0.7-4.9); Basophils % 0.6 % (0-1.3); Hematocrit 32.5 % (36.0-45.0); Lymphocytes % 10.7 % (15.3-44.8); MPV 9.4 fL (7.6-11.3); RBC Red Blood Cell Count 3.88 M/uL (3.86-4.86)
[2018-12-22 05:11] LABS: Albumin 2.5 g/dL (3.4-5.0); Phosphorus 2.3 mg/dL (2.5-4.9); Potassium 4.6 mmol/L (3.5-5.1)
[2018-12-22] MEDS: HYDROCODONE/APAP 7.5/325 MG TAB PO PRN ×2 (05:46→16:19)
[2018-12-22] MEDS: JUVEN PACKET PO SCH ×2 (08:33→20:36)
[2018-12-22] MEDS: METOPROLOL TAR 50 MG TAB PO SCH ×2 (08:33→20:35)
[2018-12-22] MEDS: POTASS/SODIUM PHOSPHATE 1 PKT POWD.PACK PO SCH ×3 (08:34→10:50)
[2018-12-22] MEDS: DOXYCYCLINE 100 MG CAP PO SCH ×2 (08:34→20:35)
[2018-12-22] MEDS: levETIRAcetam 500 MG in NA CHLORIDE 0.9% 100 ML IV SCH ×2 (08:35→20:34)
[2018-12-22] MEDS: ACETAMINOPHEN 500 MG TAB PO PRN ×2 (08:48→20:35)
[2018-12-22] MEDS: LORazepam 2 MG/ML VIAL IV PRN ×3 (09:40→22:12)
[2018-12-22 09:48] LABS: Vitamin D 1,25-Dihydroxy Total 9 pg/mL (18-72); Vitamin D,1,25-OH2, D2 <8 pg/mL
--- NOTE | 2018-12-22 10:45 | PN ---
Chief Complaint: Acute kidney injury, nonoliguric in recovery phase. History Of Present Illness: The patient was primarily intubated. She presented with seizure. She was extubated. She is tolerating p.o. intake and blood pressure stabilized. Patient developed prerenal azotemia with nonoliguric ATN and renal function has improved in response to fluids. Review of Systems: Denies complaints. Physical Examination: Lungs: Clear to auscultation bilaterally. Heart: S1, S2. Abdomen: Soft, benign. Extremities: No edema. Impression And Plan: 1. History of congestive heart failure, currently off diuretic because of acute kidney injury. Patient completed IV fluids for acute kidney injury. Renal function has improved. The patient has seizure disorder. She is on Keppra and management is per primary team. 2. Atrial fibrillation with rapid ventricular response. Heart rate controlled. 3. Respiratory failure, currently extubated, monitor, and adjust treatment with oxygen therapy as needed. 4. Acute kidney injury in recovery phase. Avoid nephrotoxic medication. I spent total 36 min including 25 min to coordinate care plan. MYRNA/SUSAN Voice ID: [id number] Report ID: [id number] FRANTZ
--- NOTE | 2018-12-22 13:22 | P.PN ---
Subjective Date of Service: 12/22/18 Chief Complaint: Seizure Subjective: No new changes Patient seen and examined at bedside. Family at bedside. Chart reviewed and case discussed with nursing staff. Patient extubated, per family and patient choice. Continues to do well, 100% on 3 L nasal cannula Tolerating a regular diet Talking more, alert oriented Complaining of back pain Review of Systems 10-point ROS is otherwise unremarkable Physical Examination - Vital Signs Temperature: 97.4 F Blood Pressure: 114/60 Pulse: 129 Respirations: 19 Pulse Ox (%): 100 - Physical Exam General: Alert, In no apparent distress, Cachectic HEENT: Atraumatic, PERRLA, EOMI Neck: Supple, JVD not distended Respiratory: Clear to auscultation bilaterally, Normal air movement Cardiovascular: Regular rate/rhythm, Normal S1 S2 Gastrointestinal: Normal bowel sounds, No tenderness Musculoskeletal: No tenderness Integumentary: No rashes Neurological: Normal speech, Normal tone, Normal affect Lymphatics: No axilla or inguinal lymphadenopathy - Studies Microbiology Data (last 24 hrs): 12/16/18 17:40 Blood - Blood Aerobic Blood Culture - Final No growth in 5 days. 12/16/18 17:40 Blood - Blood Anaerobic Blood Culture - Final No growth in 5 days. 12/16/18 18:00 Blood - Blood Aerobic Blood Culture - Final No growth in 5 days. 12/16/18 18:00 Blood - Blood Anaerobic Blood Culture - Final No growth in 5 days. Assessment And Plan - Current Problems (Diagnosis) (1) Seizure Current Visit: Yes Status: Acute Plan: Patient found down and witnessed seizures. -required intubation to help protect airways. Patient extubated per family's/ patient choice. Discussed in detail with patient may not do well post extubation. Patient remained DNR DNI. Extubated, doing well post extubation. -CT of the head/trauma Gram negative for any other acute abnormalities. -Differential diagnosis: CVA, TIA, seizure, sepsis/infectious, metabolic, ? Medication withdrawal vs OD? -MRI ordered but will not be done until Friday as no MRIs done on the weekends here. -neurology consulted, recommendations appreciated -EEG with abnormality, epileptogenic center noted on the right hemisphere -continue IV Keppra at this time (2) Generalized seizure requiring sedation and intubation Current Visit: Yes Status: Acute (3) Bacteremia Current Visit: No Status: Chronic Plan: Patient with a recent history of MRSA bacteremia Blood cultures negative at this time (4) Hyponatremia Current Visit: No Status: Resolved (5) Sacral decubitus ulcer, stage IV Current Visit: No Status: Acute Plan: Patient with recent debridement again with wound care as an outpatient. -will continue wound care here -wound VAC in place now -cultures positive for E. coli, sensitive to doxycycline. Will adjust IV antibiotics (6) TIA (transient ischemic attack) Onset Date: 05/30/15 Current Visit: No Status: Chronic Qualifiers: Transient cerebral ischemia type: unspecified Qualified Code(s): G45.9 - Transient cerebral ischemic attack, unspecified (7) Atrial fibrillation Current Visit: No Status: Chronic Plan: Home medications resumed. Continue to monitor on tele Qualifiers: (8) Chronic diastolic (congestive) heart failure Current Visit: No Status: Chronic (9) Acute renal failure Current Visit: No Status: Resolved Plan: This could be secondary to pre renal - creatinine now normal Qualifiers: - Plan Disposition: Patient extubated secondary to patient/family choice. Patient now a DNR/DNI. She is doing well post extubation. Transfer to the floor. Patient unsure which she wants in the future. Started hospice talk, patient does not seem to be ready at this time. Will continue discussion on regards to goals of care. Physician Review Additional Text: .
[2018-12-22] MEDS: NA CHLORIDE 0.9% 1,000 ML IV SCH (14:00)
--- NOTE | 2018-12-22 16:33 | PN ---
Date of Progress Note: 12/22/2018 Subjective: The patient doing slightly better, still complaining of pain all over. Objective: Vital Signs: Blood pressure 114/60, pulse of 120, afebrile. The patient has good urine output of 1100. Chest: Clear to auscultation. Heart: S1, S2. Systolic murmur. Abdomen: Soft. Mild tenderness. Extremities: No edema. Neurologic: Alert and oriented x3. Nonfocal. Laboratory Data: WBC 11.5, H and H 10.3/32.5, platelets of 203. Sodium 139, potassium 4.6, bicarb 2 6, BUN 22, creatinine 1.1, calcium 8.1, phosphorus 2.3, albumin 2.5, corrected calcium 9.3. Current Medication: As the patient on include doxycycline, metoprolol 50 b.i.d., Keppra, lorazepam, docusate. Assessment And Plan: 1.Acute kidney injury secondary to acute tubular necrosis, superimposed with rhabdo, recovering very well. We are going to continue to monitor. I am going to start the patient on gentle dose hydratio n given the tachycardia and we will follow up. 2.Hypertension, controlled, optimal. Continue current treatment. 3.Hyponatremia, recovered, resolved. 4.Seizure with status epilepticus as by primary. 5.Atrial fibrillation with tachycardia and controlled as by primary. 6.Decubitus ulcer. Continue supportive care. JACKIE Voice ID: [id number] Report ID: [id number]
[2018-12-22 20:40] LABS: Albumin, (SPE) 2.6 g/dL (3.8-4.8); Alpha-1-Globulins 0.3 g/dL (0.2-0.3); Alpha-2-Globulins 0.5 g/dL (0.5-0.9); Gamma Globulins 0.9 g/dL (0.8-1.7); INTERPRETATION REPORT
[2018-12-23] MEDS: HYDROCODONE/APAP 7.5/325 MG TAB PO PRN ×4 (02:00→20:46)
[2018-12-23] MEDS: JUVEN PACKET PO SCH ×2 (09:00→21:00)
[2018-12-23] MEDS: METOPROLOL TAR 50 MG TAB PO SCH ×2 (10:13→20:46)
[2018-12-23] MEDS: DOXYCYCLINE 100 MG CAP PO SCH ×2 (10:13→20:46)
[2018-12-23] MEDS: levETIRAcetam 500 MG in NA CHLORIDE 0.9% 100 ML IV SCH ×2 (10:14→20:46)
[2018-12-23] MEDS: POTASS/SODIUM PHOSPHATE 1 PKT POWD.PACK PO SCH ×2 (10:53→10:54)
[2018-12-23] MEDS: NA CHLORIDE 0.9% 1,000 ML IV SCH (10:55)
--- NOTE | 2018-12-23 11:25 | RAD REPORT ---
EXAM DESCRIPTION: RADChest Single View12/23/2018 11:17 am CLINICAL HISTORY: Wheezing COMPARISON: 12/21/2018 FINDINGS: Small to moderate right and small left pleural effusions with bibasilar atelectasis Lungs are hyperaerated Biapical pleural thickening unchanged Heart is moderately enlarged
--- NOTE | 2018-12-23 16:05 | P.PN ---
Subjective Date of Service: 12/23/18 Chief Complaint: Seizure Subjective: No new changes Patient seen and examined at bedside. Family at bedside. Chart reviewed and case discussed with nursing staff. Patient extubated, per family and patient choice. Continues to do well, 100% on 3 L nasal cannula Tolerating a regular diet Talking more, alert oriented Complaining of back pain Review of Systems 10-point ROS is otherwise unremarkable Physical Examination - Vital Signs Temperature: 98.6 F Blood Pressure: 109/71 Pulse: 89 Respirations: 22 Pulse Ox (%): 99 - Physical Exam General: Cachectic, Mild distress, Other (Elderly, frail) HEENT: Atraumatic, PERRLA, EOMI Neck: Supple, JVD not distended Respiratory: Clear to auscultation bilaterally, Normal air movement Cardiovascular: Regular rate/rhythm, Normal S1 S2 Gastrointestinal: Normal bowel sounds, No tenderness Musculoskeletal: No tenderness Integumentary: No rashes Neurological: Normal speech, Normal tone, Normal affect Lymphatics: No axilla or inguinal lymphadenopathy Assessment And Plan - Current Problems (Diagnosis) (1) Seizure Current Visit: Yes Status: Acute Plan: Patient found down and witnessed seizures. -required intubation to help protect airways. Patient extubated per family's/ patient choice. Discussed in detail with patient may not do well post extubation. Patient remained DNR DNI. Extubated, doing well post extubation. -CT of the head/trauma Gram negative for any other acute abnormalities. -Differential diagnosis: CVA, TIA, seizure, sepsis/infectious, metabolic, ? Medication withdrawal vs OD? -MRI ordered but will not be done until Friday as no MRIs done on the weekends here. -neurology consulted, recommendations appreciated -EEG with abnormality, epileptogenic center noted on the right hemisphere -continue IV Keppra at this time (2) Generalized seizure requiring sedation and intubation Current Visit: Yes Status: Acute (3) Bacteremia Current Visit: No Status: Chronic Plan: Patient with a recent history of MRSA bacteremia Blood cultures negative at this time (4) Hyponatremia Current Visit: No Status: Resolved (5) Sacral decubitus ulcer, stage IV Current Visit: No Status: Acute Plan: Patient with recent debridement again with wound care as an outpatient. -will continue wound care here -wound VAC in place now -cultures positive for E. coli, sensitive to doxycycline. Will adjust IV antibiotics (6) TIA (transient ischemic attack) Onset Date: 05/30/15 Current Visit: No Status: Chronic Qualifiers: Transient cerebral ischemia type: unspecified Qualified Code(s): G45.9 - Transient cerebral ischemic attack, unspecified (7) Atrial fibrillation Current Visit: No Status: Chronic Plan: Home medications resumed. Continue to monitor on tele Qualifiers: (8) Chronic diastolic (congestive) heart failure Current Visit: No Status: Chronic (9) Acute renal failure Current Visit: No Status: Resolved Plan: This could be secondary to pre renal - creatinine now normal Qualifiers: - Plan Disposition: Patient extubated secondary to patient/family choice. Patient now a DNR/DNI. She is doing well post extubation. Transfer to the floor. Patient unsure which she wants in the future. Started hospice talk, patient does not seem to be ready at this time. Will continue discussion on regards to goals of care. Physician Review Additional Text: .
--- NOTE | 2018-12-23 18:35 | PN ---
Date of Progress Note: 12/23/2018 Subjective: The patient is doing the same. Shortness of breath, today tachycardiac. Objective: Vital Signs: Blood pressure of 133/82 pulse of 75, afebrile. Chest: Faint crackles on the base. Heart: S1, S2. Systolic murmur. Abdomen: Soft, nontender. Extremities: No edema. Laboratory Data: WBC 11.5, H and H 10.3/32.5, platelets 203. Sodium 139, potassium 4.6, bicarb 26, BUN 22, creatinine 1.1, calcium 8.1. Phos 2.3, albumin 2.5. Corrected calcium is 9.4. Current Medications: The patient on its include: 1.Hydrocodone. 2.Doxycycline. 3.Keppra. Assessment And Plan: 1.Acute kidney injury secondary to prerenal recovered, resolved. I am going to go ahead and get a c hest x-ray to evaluate the fluid status for the patient. 2.Hypertension, controlled, optimal. Continue current medication. 3.Deconditioning. We will continue to monitor the patient. 4.Seizure, status epilepticus. We will follow up with the primary. 5.Atrial fibrillation, better rate controlled today. We will continue current treatment. 6.Decubitus ulcer. Followup wound care. JACKIE Voice ID: [id number] Report ID: [id number]
[2018-12-23] MEDS: LORazepam 2 MG/ML VIAL IV PRN (23:49)
[2018-12-24] MEDS: HYDROCODONE/APAP 7.5/325 MG TAB PO PRN ×2 (00:52→11:04)
[2018-12-24 05:50] LABS: Absolute Lymphocytes (CBC) 1.8 K/uL (0.7-4.9); Basophils % 0.9 % (0-1.3); MPV 9.5 fL (7.6-11.3); RBC Red Blood Cell Count 3.63 M/uL (3.86-4.86)
[2018-12-24 05:58] LABS: Albumin 2.7 g/dL (3.4-5.0); Bilirubin Total 0.8 mg/dL (0.2-1.0); Potassium 5.1 mmol/L (3.5-5.1); Protein, Total 5.9 g/dL (6.4-8.2)
--- NOTE | 2018-12-24 08:40 | RAD REPORT ---
EXAM DESCRIPTION: US - Abdomen Exam Complete - 12/24/2018 8:23 am CLINICAL HISTORY: Abdominal pain. elevated liver enzymes COMPARISON: Renal Ultrasound-Complete dated 12/17/2018 FINDINGS: Mild fatty liver is noted. No focal liver lesions or intrahepatic biliary dilatation is se en. Mild free fluid is seen in the upper abdomen. Cholecystectomy. Common bile duct is normal in caliber measuring 5 millimeters. Both kidneys are normal in size, shape and echotexture. No hydronephrosis, focal lesion of concern or perinephric fluid. The spleen is normal in size measuring 8 centimeters. The pancreas and aorta are obscured by bowel gas. The visualized aspects of the IVC are grossly normal. IMPRESSION: Diffuse fatty liver. Mild ascites in the upper abdomen.
[2018-12-24] MEDS: VITAMIN D 5,000 UNIT CAP PO SCH (09:12)
[2018-12-24] MEDS: METOPROLOL TAR 50 MG TAB PO SCH ×2 (09:12→22:33)
[2018-12-24] MEDS: DOXYCYCLINE 100 MG CAP PO SCH ×2 (09:12→22:33)
[2018-12-24] MEDS: JUVEN PACKET PO SCH ×2 (09:13→21:00)
--- NOTE | 2018-12-24 09:31 | P.PN ---
Date of Service: 12/24/18 CALLED THIS MORNING BECAUSE OF ELEVATED LIVER FUNCTION TESTING. WE WILL DO AN ABDOMINAL ULTRASOUND. REVIEWED PATIENT'S CODE STATUS. IF PATIENT DOES DEVELOP ABDOMINAL PAIN THAT SHE MAY NEED A LIPASE LEVEL. AT THIS TIME CLINICALLY SHE HAS NO DISCOMFORT. SHE HAS NO PAIN IN HER RIGHT UPPER QUADRANT. SHE HAS SEVERE DEMENTIA AND HER PROGNOSIS IS VERY POOR. IF THE FAMILY IS AGREEABLE TO HOSPICE AND THE HOSPICE DIAGNOSIS IS RELATED TO THE ELEVATED LIVER ENZYMES THEN AT THAT TIME NO FURTHER INTERVENTION WILL BE WARRANTED.
[2018-12-24] MEDS: levETIRAcetam 500 MG in NA CHLORIDE 0.9% 100 ML IV SCH ×2 (09:32→22:33)
--- NOTE | 2018-12-24 16:03 | PN ---
Date of Progress Note: 12/24/2018 Subjective: Patient doing better. More awake. No events over the night. Physical Examination: Vital Signs: When I saw the patient; blood pressure of 121/83, pulse of 88. Chest: Faint rales on the left base. No wheezing. Heart: S1, S2. Tachycardic. Abdomen: Soft, nontender. Extremities: Dressing on the left arm. No edema. Laboratory Data: WBC 9.1, H and H 9.9/30, platelets 188. Sodium 139, potassium 5.1, bicarb 27, BUN 39, creatinine 0.9, calcium 8.1. Phosphorus 3, AST 481, ALT 196. Serum protein electrophoresis show ing no monoclonal. Vitamin D of 9. PTH 122. Current Medications: The patient on its include: 1.Doxycycline. 2.Metoprolol 50 b.i.d. 3.Keppra. 4.Hydrocodone. 5.Cholecalciferol. Assessment And Plan: 1.Hyponatremia secondary to poor intake, recover, resolve. 2.Seizure as by primary. 3.Atrial fibrillation with rapid ventricular rate, resolved. 4.Acute kidney injury secondary to poor perfusion, acute tubular necrosis secondary to the atrial fi brillation, resolved. 5.Hypertension, controlled, optimal. 6.Questionable transient ischemic attack. Follow up with the primary. 7.Deconditioning. Continue PT/OT. Patient overall poor prognosis. VIN/SUSAN Voice ID: [id number] Report ID: [id number]
--- NOTE | 2018-12-24 18:45 | P.PN ---
Subjective Date of Service: 12/24/18 Chief Complaint: Seizure Subjective: No new changes Patient seen and examined at bedside. Family at bedside. Chart reviewed and case discussed with nursing staff. Patient extubated, per family and patient choice. Continues to do well, 100% on 3 L nasal cannula Tolerating a regular diet Talking more, alert oriented Complaining of back pain Review of Systems 10-point ROS is otherwise unremarkable Physical Examination - Vital Signs Temperature: 97.3 F Blood Pressure: 109/60 Pulse: 113 Respirations: 29 Pulse Ox (%): 99 - Physical Exam General: Alert, In no apparent distress HEENT: Atraumatic, PERRLA, EOMI Neck: Supple, JVD not distended Respiratory: Clear to auscultation bilaterally, Normal air movement Cardiovascular: Regular rate/rhythm, Normal S1 S2 Gastrointestinal: Normal bowel sounds, No tenderness Musculoskeletal: No tenderness Integumentary: No rashes Neurological: Normal speech, Normal tone, Normal affect Lymphatics: No axilla or inguinal lymphadenopathy Assessment And Plan - Current Problems (Diagnosis) (1) Seizure Current Visit: Yes Status: Acute Plan: Patient found down and witnessed seizures. -required intubation to help protect airways. Patient extubated per family's/ patient choice. Discussed in detail with patient may not do well post extubation. Patient remained DNR DNI. Extubated, doing well post extubation. -CT of the head/trauma Gram negative for any other acute abnormalities. -Differential diagnosis: CVA, TIA, seizure, sepsis/infectious, metabolic, ? Medication withdrawal vs OD? -MRI ordered but will not be done until Friday as no MRIs done on the weekends here. -neurology consulted, recommendations appreciated -EEG with abnormality, epileptogenic center noted on the right hemisphere -continue IV Keppra at this time (2) Generalized seizure requiring sedation and intubation Current Visit: Yes Status: Acute (3) Bacteremia Current Visit: No Status: Chronic Plan: Patient with a recent history of MRSA bacteremia Blood cultures negative at this time (4) Hyponatremia Current Visit: No Status: Resolved (5) Sacral decubitus ulcer, stage IV Current Visit: No Status: Acute Plan: Patient with recent debridement again with wound care as an outpatient. -will continue wound care here -wound VAC in place now -cultures positive for E. coli, sensitive to doxycycline. Will adjust IV antibiotics (6) TIA (transient ischemic attack) Onset Date: 05/30/15 Current Visit: No Status: Chronic Qualifiers: Transient cerebral ischemia type: unspecified Qualified Code(s): G45.9 - Transient cerebral ischemic attack, unspecified (7) Atrial fibrillation Current Visit: No Status: Chronic Plan: Home medications resumed. Continue to monitor on tele Qualifiers: (8) Chronic diastolic (congestive) heart failure Current Visit: No Status: Chronic (9) Acute renal failure Current Visit: No Status: Resolved Plan: This could be secondary to pre renal - creatinine now normal Qualifiers: - Plan Disposition: Patient extubated secondary to patient/family choice. Patient now a DNR/DNI. She is doing well post extubation. Transfer to the floor. Patient unsure which she wants in the future. Started hospice talk, patient does not seem to be ready at this time. Will continue discussion on regards to goals of care. Family decided on Home with hospice. Physician Review Additional Text: .
[2018-12-25] MEDS: LORazepam 2 MG/ML VIAL IV PRN (00:53)
[2018-12-25] MEDS: METOPROLOL TAR 50 MG TAB PO SCH (09:38)
[2018-12-25] MEDS: DOXYCYCLINE 100 MG CAP PO SCH (09:38)
[2018-12-25] MEDS: VITAMIN D 5,000 UNIT CAP PO SCH (09:38)
[2018-12-25] MEDS: JUVEN PACKET PO SCH (09:39)
[2018-12-25] MEDS: levETIRAcetam 500 MG in NA CHLORIDE 0.9% 100 ML IV SCH (10:12)
--- NOTE | 2018-12-25 10:27 | P.PN ---
Subjective Date of Service: 12/25/18 Chief Complaint: Seizure Subjective: New changes pt presented seizure , required intubation , found to have MAGNUS Now extubated Today family agreed for hospice cant complete full sentences will sign off call us prn Physical Examination - Vital Signs Temperature: 96.9 F Blood Pressure: 131/61 Pulse: 121 Respirations: 40 Pulse Ox (%): 99 - Physical Exam General: Alert, Cachectic, Moderate distress, Severe distress HEENT: Atraumatic Neck: Supple, Without JVD or thyroid abnormality Respiratory: Diminished Cardiovascular: No edema, Regular rate/rhythm, Normal S1 S2 Gastrointestinal: Normal bowel sounds Musculoskeletal: No swelling Assessment And Plan - Plan MAGNUS due to prerenal azotemia resolved Seizure disorder on Keppra Afib this morning have Afib with RVR , now HR controlled Acute resp failure extbated now decubiti wound cont wound care elevated LFT family agreed for hospice will sign off call us prn Physician Review Additional Text: .
[2018-12-25 17:36] VITALS: BP 131/88; TEMP 98.3
--- NOTE | 2018-12-25 18:51 | P.DS ---
Admission Date: 12/16/18 Discharge Date: 12/25/18 Disposition: HOSPICE-HOME Discharge Condition: FAIR Reason for Admission: Seizure Consultations: Neurology Nephrology Pulmonology General surgery - Problems (1) Seizure Current Visit: Yes Status: Acute (2) Generalized seizure requiring sedation and intubation Current Visit: Yes Status: Acute (3) Bacteremia Current Visit: No Status: Chronic (4) Hyponatremia Current Visit: No Status: Resolved (5) Sacral decubitus ulcer, stage IV Current Visit: No Status: Acute (6) TIA (transient ischemic attack) Onset Date: 05/30/15 Current Visit: No Status: Chronic Qualifiers: Transient cerebral ischemia type: unspecified Qualified Code(s): G45.9 - Transient cerebral ischemic attack, unspecified (7) Atrial fibrillation Current Visit: No Status: Chronic Qualifiers: (8) Chronic diastolic (congestive) heart failure Current Visit: No Status: Chronic (9) Acute renal failure Current Visit: No Status: Resolved Qualifiers: Brief History of Present Illness: This is a 78-year-old female with multiple medical problems, including atrial fibrillation, recent MRSA bacteremia, sacral decubitus ulcer, TIA/stroke who was brought to the emergency room by EMS for a seizure. Per , she was found down when he came home, when he talked to her she was responding well, EMS was called and they help transfer to the bed. Patient was back to baseline. Therefore EMS left. At home health nurse came to check out her decubitus ulcer and take care of the wound. At that time, there was a witnessed seizure therefore EMS was called again. At that time, the patient was brought to the emergency room. In the ER, patient was intubated to help protect her airways. Blood pressure was 133/80, heart rate of 155, in atrial fibrillation, respirations 14, afebrile and she was intubated and vented. Her labs remarkable for INR of 2.19 , sodium low at 130, creatinine elevated to 2.29, elevated total bili and direct bili. Her CT spine/head/trauma brown was negative for anything acute. Chest x-ray was with the ET tube in place, with emphysematous changes. At the time of my exam, patient was intubated and sedated, hemodynamically was stable. Hospital Course: Patient was found down with weakness seizures. She required intubation here in the ER to help protect her airways. Patient was placed in the ICU. She wanted to be DNR/DNI. Patient was extubated per family/patient's choice.Discussed in detail with patient may not do well post extubation, but family wanted her to be extubated. She did do fairly well from a story status post extubation. MRI was done, no acute CVA noted. Neurology was consulted. EEG was done, which showed epileptogenic center noted on the right hemisphere. She was started on IV Keppra Patient with recent debridement with wound care as an outpatient. Her wound VAC was placed here. Her cultures previously were positive for E. coli, sensitive to doxycycline. Her IV antibiotics were adjusted. Patient was then transferred to the floor. Patient was not really sure what she wants the future , not really realistic regarding patient's prognosis, which is pretty poor overall. Multiple discussions were had regarding further goals of care. and patient did finally decided to do hospice at home. A [facility] was contacted, and was set up and patient was then discharged home on hospice. Vital Signs/Physical Exam: Temp Pulse Resp BP Pulse Ox 98.3 F 92 H 32 H 131/88 97 12/25/18 16:00 12/25/18 16:00 12/25/18 16:00 12/25/18 16:00 12/25/18 16:00 General: In no apparent distress, Demented, Other (Drowsy, elderly, frail) HEENT: Atraumatic, PERRLA, EOMI Neck: Supple, JVD not distended Respiratory: Clear to auscultation bilaterally, Normal air movement Cardiovascular: Regular rate/rhythm, Normal S1 S2 Integumentary: Other (Multiple rashes and wounds) Laboratory Data at Discharge: WBC 9.1 K/uL (4.3-10.9) D 12/24/18 05:18 Hgb 9.9 g/dL (12.0-15.0) L 12/24/18 05:18 Hct 30.0 % (36.0-45.0) L 12/24/18 05:18 Plt Count 188 K/uL (152-406) 12/24/18 05:18 PT 22.6 SECONDS (9.5-12.5) H 12/17/18 04:57 INR 1.97 12/17/18 04:57 Sodium 139 mmol/L (136-145) 10/10/19 05:18 Potassium 5.1 mmol/L (3.5-5.1) 12/24/18 05:18 BUN 35 mg/dL (7-18) H 12/24/18 05:18 Creatinine 0.94 mg/dL (0.55-1.3) 12/24/18 05:18 Glucose 108 mg/dL (74-106) H 12/24/18 05:18 Uric Acid 14.8 mg/dL (2.6-6.0) H 12/18/18 05:10 Phosphorus 3.0 mg/dL (2.5-4.9) 12/24/18 05:18 Magnesium 1.9 mg/dL (1.8-2.4) 12/21/18 05:00 Total Bilirubin 0.8 mg/dL (0.2-1.0) 12/24/18 05:18 AST 481 U/L (15-37) H* D 12/24/18 05:18 ALT 196 U/L (12-78) H D 12/24/18 05:18 Alkaline Phosphatase 81 U/L (45-117) 12/24/18 05:18 Home Medications: Furosemide 40 mg PO DAILY 10/03/18 Levothyroxine Sodium 1 tab PO DAILY 10/03/18 Metoprolol Tartrate [Lopressor] 50 mg PO BID 10/03/18 Potassium Chloride 10 meq PO DAILY 10/03/18 Ascorbic Acid [Vitamin C] 1,000 mg PO DAILY 10/14/18 Acetaminophen with Codeine [Acetaminophen-Cod #3 Tablet] 1 tab PO Q4HP PRN 12/16 Collagenase [Santyl Ointment*] 1 giovanny TOP EVERY 3RD DAY 12/16/18 Melatonin/Pyridoxine HCl (B6) [Melatonin 3 mg Tablet] 1 each PO BEDTIME Mupirocin 1 appl TOP DAILY 12/16/18 Sennosides/Docusate Sodium [Eq Stool Softener-Stim Lax Tab] 1 - 2 tab PO DAILY 12/16/18 levETIRAcetam [Keppra Tab] 500 mg PO BID #60 tab 12/25/18 New Medications: levETIRAcetam [Keppra Tab] 500 mg PO BID #60 tab Diet: Regular Activity: Ad cristian Time spent managing pt's care (in minutes): 55
[2018-12-25 20:46] VITALS: O2SAT 98
== END 2018-12-25 19:46 | disposition hospice, home (50) | DRG 100 ==
LOC: ER 16:26 → ERHOLD 18:07 → 3RD-ICU 18:41 → 2ND 12-20 10:10
PROVIDERS: ADMIT Family Medicine; ATTEND Family Medicine
PROC: 0BH17EZ Insertion of Endotracheal Airway into Trachea, Via Natural or Artificial Opening (ICD-10-PCS; principal; 2018-12-16)
PROC: 5A1945Z Respiratory Ventilation, 24-96 Consecutive Hours (ICD-10-PCS; 2018-12-16)
DX: G40.909 Epilepsy, unspecified, not intractable, without status epilepticus (principal); L89.154 Pressure ulcer of sacral region, stage 4; J96.00 Acute respiratory failure, unspecified whether with hypoxia or hypercapnia; N17.0 Acute kidney failure with tubular necrosis; E87.1 Hypo-osmolality and hyponatremia; G45.9 Transient cerebral ischemic attack, unspecified; I50.32 Chronic diastolic (congestive) heart failure; R78.81 Bacteremia; I48.20 Chronic atrial fibrillation, unspecified; S51.012A Laceration without foreign body of left elbow, initial encounter; W19.XXXA Unspecified fall, initial encounter; F17.200 Nicotine dependence, unspecified, uncomplicated; E87.6 Hypokalemia; L08.9 Local infection of the skin and subcutaneous tissue, unspecified; B95.62 Methicillin resistant Staphylococcus aureus infection as the cause of diseases classified elsewhere; Z66 Do not resuscitate; D63.1 Anemia in chronic kidney disease
CPT/HCPCS: 31500; 36415; 51702; 70450; 70551; 71045; 71250; 72125; 76700; 76770; 80048; 80053; 80069; 80076; 80177; 80202; 81003; 82533; 82553; 82570; 82607; 82652; 82728; 82746; 82805; 82962; 83540; 83735; 83880; 83970; 84100; 84132; 84145; 84156; 84165; 84439; 84443; 84466; 84484; 84550; 85025; 85044; 85610; 86850; 86900; 86901; 87040; 87070; 87077; 87186; 87205; 93005; 94002; 94003; 95816; 96374; 96375; 99213; 99291; J1953; J3370; J7030